=== PATIENT | female | born 1990 | race Caucasian/White ===

== ENCOUNTER 2020-02-04 09:41 | Outpatient (REF) | payer OTHER, SELFPAY ==
[2020-02-04 11:15] LABS: MANUAL DIFF FLAG NO
[2020-02-04 11:32] LABS: Basophils Absolute Auto 0.1 X10*3/uL (0.0-0.2); Basophils Percent Auto 0.8 % (0-2); Eosinophils Percent Auto 0.5 % (0-4); Hematocrit 41.2 % (37-47); Hemoglobin 12.6 g/dl (12.0-16.0); Imm Gran Abs Auto 0.03 X10*3/uL (0.00-0.03); Imm Gran Pct Auto 0.4 % (0.0-0.4); Lymphocytes Absolute Auto 3.1 X10*3/uL (1.2-4.9); Lymphocytes Percent Auto 36.6 % (20-40); Mean Corpuscular HGB Conc 30.6 g/dl (31.0-35.0); Mean Corpuscular Hemoglobin 27.8 pg (27.0-33.0); Mean Corpuscular Volume 90.7 fL (80-98); Mean Platelet Volume 9.9 fL (9.4-12.3); Monocytes Absolute Auto 0.6 X10*3/uL (0.1-1.2); Monocytes Percent Auto 6.7 % (2-11); Neutrophils Absolute Auto 4.7 X10*3/uL (2.0-8.3); Platelet Count 415 X10*3/uL (160-400); Red Blood Count 4.54 X10*6/uL (4.20-5.50); Red Cell Distribution Width 14.7 % (11.0-16.0); White Blood Count 8.5 X10*3/uL (4.8-10.8)
[2020-02-04 11:52] LABS: Alanine Aminotransferase 37 U/L (0-31); Albumin Level 4.5 g/dL (3.5-5.0); Alkaline Phosphatase 63 U/L (39-117); Anion Gap 15 (12-20); Aspartate Amino Transferase 31 U/L (5-31); Bilirubin Total 0.4 mg/dL (0.0-1.0); Blood Urea Nitrogen 13 mg/dL (9-16); Calcium 8.7 mg/dL (8.4-10.2); Carbon Dioxide 25 mmol/L (22-29); Chloride 103 mmol/L (96-108); Estimated Glomerular Filt Rate > 60; Glucose Random 89 mg/dL (60-115); Potassium 4.2 mmol/l (3.3-5.1); Sodium 139 mmol/L (135-145); Total Protein 8.1 g/dL (6.5-8.0)
[2020-02-04 12:03] LABS: TSH reflex Free T4 3.28 mIU/mL (0.32-4.0)
== END 2020-02-04 09:42 | disposition home or self-care (01) ==
LOC: HO.LAB 09:41
PROVIDERS: PCP Internal Medicine; Visit Provider Internal Medicine
DX: K52.9 Noninfective gastroenteritis and colitis, unspecified (principal); E03.9 Hypothyroidism, unspecified
CPT/HCPCS: 36415; 80053; 84443; 85025

== ENCOUNTER → 2020-03-03 15:18 | Outpatient (BNVA) | payer OTHER, SELFPAY | PROVIDERS: PCP Internal Medicine; Referring Provider Internal Medicine; Visit Provider Internal Medicine Gastroenterology | DX: Z76.89 Persons encountering health services in other specified circumstances (principal) ==

== ENCOUNTER 2020-05-28 07:34 | Outpatient (REF) | payer OTHER, SELFPAY ==
[2020-05-28 08:20] LABS: MANUAL DIFF FLAG NO
[2020-05-28 08:32] LABS: Basophils Absolute Auto 0.1 X10*3/uL (0.0-0.2); Basophils Percent Auto 0.8 % (0-2); Eosinophils Absolute Auto 0.1 X10*3/uL (0.0-0.4); Eosinophils Percent Auto 0.7 % (0-4); Hematocrit 41.1 % (37-47); Imm Gran Abs Auto 0.02 X10*3/uL (0.00-0.03); Imm Gran Pct Auto 0.3 % (0.0-0.4); Lymphocytes Absolute Auto 2.9 X10*3/uL (1.2-4.9); Lymphocytes Percent Auto 37.6 % (20-40); Mean Corpuscular HGB Conc 31.6 g/dl (31.0-35.0); Mean Corpuscular Hemoglobin 28.6 pg (27.0-33.0); Mean Corpuscular Volume 90.3 fL (80-98); Mean Platelet Volume 10.3 fL (9.4-12.3); Monocytes Absolute Auto 0.5 X10*3/uL (0.1-1.2); Monocytes Percent Auto 6.4 % (2-11); Neutrophils Absolute Auto 4.2 X10*3/uL (2.0-8.3); Neutrophils Percent Auto 54.2 % (45-73); Platelet Count 400 X10*3/uL (160-400); Red Blood Count 4.55 X10*6/uL (4.20-5.50); Red Cell Distribution Width 14.5 % (11.0-16.0); White Blood Count 7.7 X10*3/uL (4.8-10.8)
[2020-05-28 09:06] LABS: Alanine Aminotransferase 24 U/L (0-31); Albumin Level 4.3 g/dL (3.5-5.0); Alkaline Phosphatase 57 U/L (39-117); Anion Gap 14 (12-20); Aspartate Amino Transferase 26 U/L (5-31); Bilirubin Total 0.4 mg/dL (0.0-1.0); Blood Urea Nitrogen 12 mg/dL (9-16); C Reactive Protein 0.66 mg/dL (< or = 0.50); Calcium 9.2 mg/dL (8.4-10.2); Carbon Dioxide 26 mmol/L (22-29); Chloride 105 mmol/L (96-108); Estimated Glomerular Filt Rate > 60; Glucose Random 110 mg/dL (60-115); Magnesium 1.9 mg/dL (1.6-2.6); Potassium 4.6 mmol/L (3.3-5.1); Sodium 140 mmol/L (135-145); Total Protein 7.8 g/dL (6.5-8.0)
[2020-05-28 09:12] LABS: Vitamin D 25-OH Total 29.4 ng/mL (>30)
[2020-06-01 00:13] LABS: Transglutaminase IgA 1 U/mL
== END 2020-05-28 07:35 | disposition home or self-care (01) ==
LOC: HO.LAB 07:34
PROVIDERS: PCP Internal Medicine; Visit Provider Internal Medicine Gastroenterology
DX: K52.9 Noninfective gastroenteritis and colitis, unspecified (principal)
CPT/HCPCS: 36415; 80053; 82306; 83516; 83735; 85025; 86140

== ENCOUNTER 2020-07-16 15:02 | Outpatient (REF) | payer OTHER, SELFPAY | END 2020-07-16 15:03 | disposition home or self-care (01) | LOC: HO.LAB 15:02 | PROVIDERS: Visit Provider Internal Medicine | DX: Z20.822 Contact with and (suspected) exposure to COVID-19 (principal) | CPT/HCPCS: C9803; U0003; U0005 ==

== ENCOUNTER 2020-07-19 09:00 | Outpatient (REF) | payer OTHER, SELFPAY ==
[2020-07-19 09:28] LABS: COVID-19 Test Negative (Negative)
== END 2020-07-19 09:01 | disposition home or self-care (01) ==
LOC: HO.LAB 09:00
PROVIDERS: Visit Provider Internal Medicine
DX: Z20.822 Contact with and (suspected) exposure to COVID-19 (principal)
CPT/HCPCS: 36415; 87635; C9803

== ENCOUNTER 2020-08-06 12:19 | Outpatient (REF) | payer OTHER, SELFPAY ==
[2020-08-06 12:39] LABS: COVID-19 Test Negative (Negative); IDNOW Serial# 55D5AD1C
== END 2020-08-06 12:20 | disposition home or self-care (01) ==
LOC: HO.LAB 12:19
PROVIDERS: Visit Provider Internal Medicine
DX: Z20.822 Contact with and (suspected) exposure to COVID-19 (principal)
CPT/HCPCS: 36415; 87635; C9803

== ENCOUNTER 2021-01-08 13:59 | Emergency (ER) | payer OTHER, SELFPAY ==
--- NOTE | ~2021-01-08 | US_ITS ---
EXAMINATION: US OBSTETRICAL ULTRASOUND CLINICAL INFORMATION: Spotting. Prior history of ectopic .. Question ectopic .. COMPARISON: None. LMP: 11/11/2020. Gestational age by maternal dates is 8 weeks 2 days. Estimated date of delivery by maternal dates is 08/18/2021. TECHNIQUE: Transabdominal and transvaginal evaluation FINDINGS: There is a single intrauterine gestational sac. There is a pole is seen. [place] Pocket-rump length 0.74 cm, corresponding with a gestational age by ultrasound of 6 weeks 5 days, FREDDY by ultrasound 08/29/2021. No discernible heart rate visualized. No visible yolk sac. The right ovary is not visualized. Left ovary measures 4.1 x 1.7 x 2.2 cm, appearing unremarkable. No findings to suggest ectopic identified in the adnexal regions. US/US OB pelvic and transvaginal IMPRESSION: 1. Last menstrual period corresponds with a gestational age of 8 weeks 2 days. On ultrasound, there is a single intrauterine gestational sac with a pole, with crown-rump length measurements corresponds with a gestational age of 6 weeks 5 days. This is discordant when correlated with the LMP dates. No heart rate is identified, which could be related to early gestational age versus non-viability. Recommend close clinical correlation and follow-up,, serial beta hCGs, short-term follow-up ultrasound is recommended. 2. No adnexal findings are evident by ultrasound to suggest ectopic .
[2021-01-08 15:32] VITALS: PULSE 87; RESP 16; TEMP 36.6; O2SAT 100; BMI 42.7
--- NOTE | 2021-01-08 17:18 | ED_ITS ---
HPI - General Chief complaint: Vaginal Bleeding Stated complaint: , vaginal bleeding Time Seen by Provider: 01/08/21 16:14 Source: patient Mode of arrival: ambulatory Limitations: language barrier History of Present Illness HPI Narrative: 30-year-old english-speaking female with a history of ectopic 3 years ago presents for positive test at home and brown discharge. Two days ago patient had a positive home test. For the last 2 days she has had spotting, brown spots on the toilet paper when she goes to the bathroom. Patient has no pelvic pain. LMP was 11/11/20. She is . She has an appointment with her [facility] on January 27. She is not taking prenatals. She has no STD concerns. MD Complaint: vaginal bleeding Onset (ago): day(s) (1) Associated symptoms: denies other symptoms Vaginal bleeding: other (brown spotting) Date of Last Menstrual Period: 12/12/20 Related Data : 3 Para: 2 Total number of abortions (spontaneous and elective): 1 Previous Rx's Medication Instructions Recorded vitamin no.138-folic acid 1 tab PO DAILY 30 Days #30 tab 01/08/21 400 mcg-dha 25 mg chewable tablet (Alive ) Allergies Allergy/AdvReac Type Severity Reaction Status Date / Time No Known Allergies Allergy Verified 06/21/20 10:43 [No Known Allergies*] Review of Systems Constitutional: Constitutional: Denies body ache(s), Denies chills, Denies fatigue, Denies fever(s), Denies headache(s), Denies malaise and Denies weakness Eyes: Eyes: Denies change in vision and Denies diplopia ENT: Denies vertigo, Denies dizziness, Denies otalgia, Denies headache(s), Denies post nasal drip, Denies sinus pain and Denies sore throat Cardiovascular: Cardiovascular: Denies chest pain, Denies syncope, Denies lightheadedness, Denies palpitations and Denies dyspnea Respiratory: Respiratory: Denies chest congestion, Denies cough and Denies dyspnea Gastrointestinal: Gastrointestinal: Denies abdominal pain, Denies hematochezia, Denies constipation, Denies diarrhea and Denies vomiting Genitourinary: Genitourinary: Reports abnormal vaginal bleeding, Denies dysuria, Denies pelvic pain, Denies flank pain and Denies urinary urgency Musculoskeletal: Musculoskeletal: Reports no additional musculoskeletal complaints Neurologic: Denies confusion, Denies vertigo, Denies dizziness, Denies syncope, Denies headache(s) and Denies weakness Psychiatric: Psychiatric: Denies anxiety, Denies confusion and Denies depression Endocrine: Endocrine: Denies fatigue and Denies palpitations [facility] Past Medical History Medical History Chronic diarrhea Morbid obesity with BMI of 40.0-44.9, adult Surgical History History of : 3 Para: 2 Total number of abortions (spontaneous and elective): 1 Date of Last Menstrual Period: 12/12/20 Family History Family History Father No problems noted. 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 Physical Exam Vital Signs: Vital Signs: Last Vital Signs Temp 99.3 F 01/08/21 19:53 Pulse 80 01/08/21 19:53 Resp 16 01/08/21 19:53 BP 112/71 01/08/21 19:53 Pulse Ox 100 01/08/21 19:53 Body Mass Index 42.7 Const: General: no acute distress, well developed, awake and Physically active; No confusion Nutritional Appearance: obese centrally obese Orien tation/consciousness: patient oriented x3 and No confusion Limitations: language barrier HENMT: Head: Yes normal to inspection, Yes normocephalic and Yes atraumatic Ears: hearing grossly normal bilaterally and external ears normal General nose exam: Normal external nose present Face and sinus: Yes normal facial exam Eyes: Conjunctivae: conjunctivae normal Pupils: Equal, round and reactive pupils present EOM: EOMs intact bilaterally Neck: Neck: Yes full ROM, Yes no lymphadenopathy and Yes supple Resp: Effort & Inspection: normal respiratory effort and able to speak in complete sentences Auscultation: clear to auscultation bilaterally, no crackles, no rales, no rhonchi and no wheezes Cardio: Rate: regular rate Rhythm: regular rhythm Heart sounds: S1 normal heart sound present and S2 normal heart sound present GI: Inspection: Yes normal to inspection Palpation (GI): Soft to palpation, nontender, no guarding and not rigid Percussion: Yes normal to percussion Auscultation: normal bowel sounds : External Female Exam: normal external appearance, No externally tender and No external swelling Speculum Exam - Vagina: normal appearance of the vagina, abnormal vaginal discharge (brown) and vaginal bleeding (brown, scant) Speculum Exam - Cervix: normal appearance of the cervix and Cervical os closed OB/external & speculum: vaginal bleeding (brown, scant) Skin: General skin exam: no rashes or lesions noted Neuro: General: patient oriented x3 and No confusion Cranial nerves: Yes Equal, round and reactive pupils present Extrem: General: Yes normal to inspection and Yes full ROM Psych: Appearance: grossly normal Affect: normal affect Attitude: cooperative Thought process: Normal thought process present Course Course Course Narrative: 30-year-old female whose last menstrual period was November 11, 2020, is [place]. [place] [address]. On exam, patient has a closed cervix with scant brown discharge. Will get ultrasound to rule out ectopic. Patient told me she has appointment with her OBGYN at the end of the month. Reevaluation(s) Reevaluation #1: 1. Last menstrual period corresponds with a gestational age of 8 weeks 2 days. ? On ultrasound, there is a single intrauterine gestational sac with a pole, with crown-rump length measurements corresponds with a gestational age of 6 weeks 5 days. This is discordant when correlated with the LMP dates. No heart rate is identified, which could be related to early gestational age versus non-viability. Recommend close clinical correlation and follow-up,, serial beta hCGs, short-term follow-up ultrasound is recommended. ? 2. No adnexal findings are evident by ultrasound to suggest ectopic . Told patient to take vitamins which I will prescribe for her. Told patient she needs close follow-up and she needs to call her OBGYN on Sunday. They will need to do serial hormone and follow-up with ultrasound Patient verbalized agreement and understanding of the plan. MDM - OB/Uterine Contractions Lab Data Labs: Lab Results 10/12/2101/08/21 01/08/21 Range/Units 17:40 17:40 17:47 Beta HCG, Quant 98780 mIU/mL Urine Color YELLOW Urine Appearance CLEAR Urine pH 6.5 (5.0-8.0) Ur Specific [place] 1.015 (1.005-1.025) Urine Protein NEG (NEG-TRACE) MG/DL Urine Glucose (UA) NEG (NEG) MG/DL Urine Ketones NEG (NEG) MG/DL Urine Blood 1+ H (NEG) Urine Nitrite NEG (NEG) Ur Leukocyte Esterase NEG (NEG) Urine RBC 0-2 (0) /HPF Urine WBC 0-2 (0-4) /HPF Ur Squamous Epith Cells 1+ /LPF Urine Bacteria 2+ /LPF Urine Test POSITIVE H (NEGATIVE) Discharge Plan Discharge Clinical Impression: Vaginal spotting Qualifiers: Weeks of gestation: less than 8 weeks Qualified Code(s): Z3A.01 - Less than 8 weeks gestation of Patient Disposition: Home, Self-Care Instructions: First Trimester (ED) Additional Instructions: Please call your OBGYN on Sunday morning. I would like you to be seen this week. You may need to have follow-up blood work and ultrasound. To not wait until your January 27 appointment, he must be seen this week. If you have pelvic pain, worsening bleeding, fevers, or any other new or concerning symptoms, please return to emergency room. Llame a wade obstetra el lunes por la ma?bre. Me gustar?a que te vieran esta semana. Es posible que deba realizarse an?lisis de jelani y ultrasonido de seguimiento. Para no esperar hasta wade scott del , debe verlo esta semana. Si tiene dolor p?lvico, sangrado que empeora, fiebre o cualquier otro s?ntoma nuevo o preocupante, regrese a la ciarra de emergencias. Prescriptions: New Alive 400 mcg- 25 mg tablet,chewable 1 tab PO DAILY 30 Days Qty: 30 RF: 0
[2021-01-08 17:57] LABS: Appearance Urine CLEAR; Color Urine YELLOW; Glucose Urine UA NEG (NEG); Leukocyte Esterase Urine NEG (NEG); Nitrite Urine NEG (NEG); PH 6.5 (5.0-8.0); Specific Gravity - Urine 1.015 (1.005-1.025); Urine Blood 1+ (NEG); Urine Ketones NEG (NEG); Urine Protein NEG (NEG-TRACE)
[2021-01-08 17:58] LABS: UPreg QC Valid YES; Urine Pregnancy POSITIVE (NEGATIVE)
[2021-01-08 18:03] LABS: Bacteria Urine 2+ /LPF; Squamous Epithelial Cell Urine 1+ /LPF
[2021-01-08 18:04] LABS: RBC Urine 0-2 /HPF (0); WBC Urine 0-2 /HPF (0-4)
[2021-01-08 19:53] VITALS: BP 112/71; PULSE 80; RESP 16; TEMP 37.4; O2SAT 100
== END 2021-01-08 22:11 | disposition home or self-care (01) ==
PROVIDERS: Physician Assistant; Emergency Provider Emergency Medicine; PCP Internal Medicine
DX: O20.9 Hemorrhage in early pregnancy, unspecified (principal); Z3A.01 Less than 8 weeks gestation of pregnancy
CPT/HCPCS: 36415; 76801; 76817; 81001; 81025; 84702; 99284

== ENCOUNTER 2021-01-13 14:59 | Outpatient (REF) | payer OTHER, SELFPAY ==
[2021-01-14 10:38] LABS: CT PCR NOT DETECTED (Not Detect.); NG PCR NOT DETECTED (Not Detect.)
== END 2021-01-13 15:00 | disposition home or self-care (01) ==
LOC: HO.LAB 14:59
PROVIDERS: PCP Internal Medicine; Visit Provider Obstetrics & Gynecology
DX: O20.0 Threatened abortion (principal)
CPT/HCPCS: 36415; 84702; 86850; 86900; 86901; 87491; 87591; 99202

== ENCOUNTER 2021-01-14 08:50 | Outpatient (REF) | payer OTHER, SELFPAY ==
--- NOTE | ~2021-01-14 | US_ITS ---
EXAMINATION: OBSTETRICAL ULTRASOUND, FIRST TRIMESTER HISTORY: 30-year-old with unknown LMP Threatened AB LMP: Unknown COMPARISON: 01/08/2021 TECHNIQUE: Real time transabdominal imaging with color and M-mode Doppler. Transvaginal ultrasound was performed using an endovaginal probe. FINDINGS: A single, live IUP CRL of 4.7 mm c/w 6.2wks is noted. No heart motion. Yolk sac is absent. Both maternal ovaries are seen and appear normal. No free fluid in the cul-de-sac. GESTATIONAL AGE: 1. GA from LMP: 7.4 wks 2. GA from AUA: 6.2 wks ESTIMATED DATE OF DELIVERY: 1. FREDDY from LMP: 08/29/2021 2. FREDDY from AUA: 09/03/2021 US/US OB <= 14 weeks fetus IMPRESSION: 1. A nonviable IUP 2. CRL consistent with 6.2 weeks with no heart motion or yolk sac. 3. The finding is consistent with missed AB Discussion: I informed the patient of the ultrasound findings and informed her that the most common etiology for first trimester miscarriages is chromosomal. She had 2 healthy term deliveries. I reassured her that her chance of conceiving and having a normal is unchanged based on this one miscarriage. She is to follow up with you for further care. No specific ultrasound followup appears needed at this time. The patient was advised that ultrasound cannot guarantee the of a normal infant. Thank you very much for this referral. Total time 20 minutes. The time spent was devoted to counseling the patient about the disease and diagnosis, coordinating care including reviewing her records, pertinent lab data and studies, as well as discussing diagnostic evaluation and workup, plan therapeutic interventions and future disposition of care. This includes any additional research needed to obtain further information in formulating the plan of care of this patient. This note was generated with a voice recognition program. Please excuse any errors which may have been overlooked during my review of this note. Sometimes these errors may affect the content or meaning of a given sentence.
== END 2021-01-14 08:51 | disposition home or self-care (01) ==
LOC: HO.US 08:50
PROVIDERS: PCP Internal Medicine; Visit Provider Obstetrics & Gynecology
DX: O02.1 Missed abortion (principal)
CPT/HCPCS: 76801; 99212

== ENCOUNTER 2021-01-26 08:43 | Outpatient (REF) | payer OTHER, SELFPAY ==
[2021-01-26 10:24] LABS: HCG Quantitative 303 mIU/mL
== END 2021-01-26 08:44 | disposition home or self-care (01) ==
LOC: HO.LAB 08:43
PROVIDERS: PCP Internal Medicine; Visit Provider Obstetrics & Gynecology
DX: O02.1 Missed abortion (principal)
CPT/HCPCS: 36415; 84702

== ENCOUNTER → 2021-01-27 12:41 | Outpatient (BNVA) | payer OTHER, SELFPAY | PROVIDERS: PCP Internal Medicine; Visit Provider Obstetrics & Gynecology | DX: O03.9 Complete or unspecified spontaneous abortion without complication (principal) | CPT/HCPCS: 99212 ==

== ENCOUNTER 2021-02-16 09:51 | Outpatient (REF) | payer OTHER, SELFPAY ==
[2021-02-16 11:15] LABS: HCG Quantitative 4 mIU/mL
[2021-02-18 19:17] LABS: TS Negative Control Passed; TS Panel A 0; TS Panel B 0; TS Positive Control Passed; TSpotTB Negative (Negative)
== END 2021-02-16 09:52 | disposition home or self-care (01) ==
LOC: HO.LAB 09:51
PROVIDERS: PCP Internal Medicine; Referring Provider Obstetrics & Gynecology; Visit Provider Internal Medicine
DX: N92.6 Irregular menstruation, unspecified (principal); Z11.1 Encounter for screening for respiratory tuberculosis
CPT/HCPCS: 36415; 84702; 86481

== ENCOUNTER → 2021-02-17 12:43 | Outpatient (BNVA) | payer OTHER, SELFPAY | PROVIDERS: PCP Internal Medicine; Visit Provider Obstetrics & Gynecology | DX: O03.9 Complete or unspecified spontaneous abortion without complication (principal) | CPT/HCPCS: 99212 ==

== ENCOUNTER 2021-03-03 08:52 | Outpatient (REF) | payer OTHER, SELFPAY ==
[2021-03-03 10:10] LABS: HCG Quantitative < 2 mIU/mL
== END 2021-03-03 08:53 | disposition home or self-care (01) ==
LOC: HO.LAB 08:52
PROVIDERS: PCP Internal Medicine; Visit Provider Obstetrics & Gynecology
DX: O03.9 Complete or unspecified spontaneous abortion without complication (principal)
CPT/HCPCS: 36415; 84702

== ENCOUNTER 2021-03-21 10:28 | Outpatient (REF) | payer OTHER, SELFPAY ==
[2021-03-21 12:03] LABS: COVID-19 Test Negative (Negative); IDNOW Serial# 16C4AD1C
== END 2021-03-21 10:29 | disposition home or self-care (01) ==
LOC: HO.LAB 10:28
PROVIDERS: PCP Internal Medicine; Visit Provider Internal Medicine
DX: Z20.822 Contact with and (suspected) exposure to COVID-19 (principal)
CPT/HCPCS: 36415; 87635; C9803

== ENCOUNTER 2021-04-19 09:53 | Outpatient (REF) | payer OTHER, SELFPAY ==
[2021-04-19 10:38] LABS: Binax Internal Control QC Valid; Binax Now Covid-19 Ag Positive (Negative)
== END 2021-04-19 09:54 | disposition home or self-care (01) ==
LOC: HO.LAB 09:53
PROVIDERS: Visit Provider Internal Medicine
DX: Z20.822 Contact with and (suspected) exposure to COVID-19 (principal)
CPT/HCPCS: C9803

== ENCOUNTER 2021-04-25 09:57 | Outpatient (REF) | payer OTHER, SELFPAY ==
[2021-04-25 10:35] LABS: Binax Internal Control QC Valid; Binax Now Covid-19 Ag Negative (Negative)
== END 2021-04-25 09:58 | disposition home or self-care (01) ==
LOC: HO.LAB 09:57
PROVIDERS: Visit Provider Internal Medicine
DX: Z20.822 Contact with and (suspected) exposure to COVID-19 (principal)
CPT/HCPCS: C9803

== ENCOUNTER 2021-06-24 07:05 | Outpatient (REF) | payer OTHER, SELFPAY ==
[2021-06-24 07:34] LABS: MANUAL DIFF FLAG NO
[2021-06-24 08:07] LABS: Basophils Absolute Auto 0.1 X10*3/uL (0.0-0.2); Basophils Percent Auto 0.7 % (0-2); Eosinophils Absolute Auto 0.1 X10*3/uL (0.0-0.4); Eosinophils Percent Auto 0.6 % (0-4); Hematocrit 39.2 % (37.0-47.0); Hemoglobin 12.4 g/dl (12.0-16.0); Imm Gran Abs Auto 0.14 X10*3/uL (0.00-0.03); Imm Gran Pct Auto 1.2 % (0.0-0.4); Lymphocytes Percent Auto 25.6 % (20-40); Mean Corpuscular HGB Conc 31.6 g/dl (31.0-35.0); Mean Corpuscular Hemoglobin 29.2 pg (27.0-33.0); Mean Corpuscular Volume 92.2 fL (80.0-98.0); Mean Platelet Volume 9.7 fL (9.4-12.3); Monocytes Absolute Auto 0.8 X10*3/uL (0.1-1.2); Monocytes Percent Auto 6.7 % (2-11); Neutrophils Absolute Auto 7.5 x10*3/uL (2.0-8.3); Neutrophils Percent Auto 65.2 % (45-73); Platelet Count 407 X10*3/uL (160-400); Red Blood Count 4.25 X10*6/uL (4.20-5.50); Red Cell Distribution Width 14.6 % (11.0-16.0); White Blood Count 11.5 X10*3/uL (4.8-10.8)
[2021-06-24 08:33] LABS: Alanine Aminotransferase 30 U/L (0-31); Albumin Level 3.9 g/dL (3.5-5.0); Alkaline Phosphatase 60 U/L (39-117); Anion Gap 13 (12-20); Aspartate Amino Transferase 35 U/L (5-31); Bilirubin Total 0.5 mg/dL (0.0-1.0); Blood Urea Nitrogen 12 mg/dL (9-16); Calcium 9.3 mg/dL (8.4-10.2); Carbon Dioxide 27 mmol/L (22-29); Chloride 101 mmol/L (96-108); Cholesterol 186 mg/dL; Estimated Glomerular Filt Rate > 60; Glucose Fasting 117 mg/dL (60-99); HDL Cholesterol 53 mg/dL; LDL Cholesterol Calculated 101 mg/dl; Potassium 4.6 mmol/L (3.3-5.1); Sodium 136 mmol/L (135-145); Total Protein 7.6 g/dL (6.5-8.0); Triglycerides 163 mg/dL
[2021-06-24 08:54] LABS: HCG Quantitative 7268 mIU/mL; Thyroid Stimulating Hormone 7.35 uIU/mL (0.32-4.0)
== END 2021-06-24 07:06 | disposition home or self-care (01) ==
LOC: HO.LAB 07:05
PROVIDERS: PCP Internal Medicine; Visit Provider Internal Medicine
DX: Z00.00 Encounter for general adult medical examination without abnormal findings (principal); D64.9 Anemia, unspecified; E66.01 Morbid (severe) obesity due to excess calories; Z68.41 Body mass index [BMI] 40.0-44.9, adult; N92.6 Irregular menstruation, unspecified; E78.5 Hyperlipidemia, unspecified
CPT/HCPCS: 36415; 80053; 80061; 84443; 84702; 85025

== ENCOUNTER → 2021-06-29 14:44 | Outpatient (BNVA) | payer OTHER, SELFPAY | PROVIDERS: PCP Internal Medicine; Visit Provider Advanced Practice Midwife | DX: N92.6 Irregular menstruation, unspecified (principal); E66.01 Morbid (severe) obesity due to excess calories; Z68.41 Body mass index [BMI] 40.0-44.9, adult | CPT/HCPCS: 81025; 99212 ==

== ENCOUNTER 2021-07-08 13:10 | Outpatient (REF) | payer OTHER, SELFPAY ==
--- NOTE | ~2021-07-08 | US_ITS ---
EXAMINATION: OBSTETRICAL ULTRASOUND, FIRST TRIMESTER HISTORY: 31-year-old with irregular menses LMP: 05/06/2021, uncertain COMPARISON: None TECHNIQUE: Real time transabdominal imaging with color and M-mode Doppler. FINDINGS: A single, live IUP CRL of 13.5 mm c/w 7.5wks is noted. Heart Rate: 169 beats per minute. Too early for NT evaluation. Both maternal ovaries are seen and appear normal. GESTATIONAL AGE: 1. GA from LMP: 9.0 wks 2. GA from AUA: 7.5 wks ESTIMATED DATE OF DELIVERY: 1. FREDDY from LMP: 02/10/2022 2. FREDDY from AUA: 02/19/2022 US/US OB <= 14 weeks fetus IMPRESSION: 1. A single live IUP 2. Size less than dates, CRL corresponds to 7.5 weeks. 3. Adjust her FREDDY to 02/19/2022 based on today's examination. A follow-up in approximately 12 weeks for NT evaluation is suggested (not scheduled). Thank you very much for this referral. This note was generated with a voice recognition program. Please excuse any errors which may have been overlooked during my review of this note. Sometimes these errors may affect the content or meaning of a given sentence.
== END 2021-07-08 13:11 | disposition home or self-care (01) ==
LOC: HO.US 13:10
PROVIDERS: Visit Provider Advanced Practice Midwife
DX: Z34.91 Encounter for supervision of normal pregnancy, unspecified, first trimester (principal); Z3A.01 Less than 8 weeks gestation of pregnancy
CPT/HCPCS: 76801

== ENCOUNTER → 2021-07-14 09:43 | Outpatient (BNVA) | payer OTHER, SELFPAY | PROVIDERS: Visit Provider Advanced Practice Midwife | DX: Z13.89 Encounter for screening for other disorder (principal) | CPT/HCPCS: 99212 ==

== ENCOUNTER 2021-07-22 06:40 | Outpatient (REF) | payer OTHER, SELFPAY ==
[2021-07-22 07:09] LABS: Hematocrit 40.8 % (37.0-47.0); Mean Corpuscular HGB Conc 31.9 g/dl (31.0-35.0); Mean Corpuscular Volume 90.9 fL (80.0-98.0); Mean Platelet Volume 10.1 fL (9.4-12.3); Platelet Count 278 X10*3/uL (160-400); Red Blood Count 4.49 X10*6/uL (4.20-5.50); Red Cell Distribution Width 15.6 % (11.0-16.0); White Blood Count 11.6 X10*3/uL (4.8-10.8)
[2021-07-22 07:48] LABS: Glucose 1 Hour PP 50gm Dose 114 mg/dL (60-140)
[2021-07-22 08:33] LABS: Syphilis Screen Nonreactive (Nonreactive)
[2021-07-22 09:35] LABS: Amphetamine Screen Urine Not Detected (Not Detect); Barbiturates, Urine Not Detected (Not Detect); Benzodiazepines Screen Urine Not Detected (Not Detect); Cannabinoid Screen Urine Not Detected (Not Detect); Cocaine Screen Urine Not Detected (Not Detect); Fentanyl, urine Not Detected (Not Detect); Opiate Screen Urine Not Detected (Not Detect); Phencyclidine Screen Urine Not Detected (Not Detect)
[2021-07-22 09:38] LABS: ~HepC Num1 0.44 S/CO (0.00-0.79); ~Hepatitis C Antibody Nonreactive (Nonreactive)
[2021-07-22 11:43] LABS: HBsAGNum1 0.24 S/CO (0.00-0.99); HIV AB/AG Nonreactive (Nonreactive); HIV Num 1 0.07 S/CO (0.00-0.99); Hepatitis B Surface Antigen Negative (Negative)
[2021-07-26 01:11] LABS: Rubella IgG Antibody 4.25 Index
== END 2021-07-22 06:41 | disposition home or self-care (01) ==
LOC: HO.LAB 06:40
PROVIDERS: PCP Internal Medicine; Visit Provider Advanced Practice Midwife
DX: O99.210 Obesity complicating pregnancy, unspecified trimester (principal); E66.01 Morbid (severe) obesity due to excess calories; Z68.41 Body mass index [BMI] 40.0-44.9, adult; Z3A.00 Weeks of gestation of pregnancy not specified
CPT/HCPCS: 80307; 85027; 86762; 86780; 86787; 86803; 86850; 86900; 86901; 87086; 87340; 87389

== ENCOUNTER 2021-08-12 09:00 | Outpatient (REF) | payer OTHER, SELFPAY ==
--- NOTE | ~2021-08-12 | US_ITS ---
EXAMINATION: OBSTETRICAL ULTRASOUND, FIRST TRIMESTER HISTORY: 31-year-old at the 12.5 weeks of gestation NT screening BMI 42.4 COMPARISON: 07/08/2021 TECHNIQUE: Real time transabdominal imaging with color and M-mode Doppler. FINDINGS: A single, live IUP CRL of 70.0 mm c/w 13.2wks is noted. Heart Rate: 163 beats per minute. Normal yolk sac seen. NT was 1.54.mm. NB Present The embryo appears sonographically wnl for this GA. Both maternal ovaries are seen and appear normal. GESTATIONAL AGE: 1. Established GA: 12.5 wks 2. GA from AUA: 13.2 wks ESTIMATED DATE OF DELIVERY: 1. Established FREDDY: 02/19/2022 2. FREDDY from [facility]: 02/15/2022 US/US OB 1T nuc measure IMPRESSION: 1. A single live IUP 2. Size equals dates 3. NT of 1.5 mm MFM Consultation: I reviewed the ultrasound findings along with significance of NT measurement. The NT of less than 3mm is generally reassuring. However, the sensitivity for T21 detection is only 60%. I reviewed the availability of serum aneuploidy screening which includes cell-free DNA and placental protein based tests. I discussed the sensitivity, false-positive rate, and other limitations associated with each test. I also reviewed the availability of invasive diagnostic tests that are associated small but definite risk of miscarriage. We also reviewed the differences between screening tests and diagnostic tests. After our discussion, she opted for the First trimester screening that is based on cell-free DNA or non-invasive testing (NIPT). The result will be faxed to your office in approximately 7 days. A follow up at 18 weeks for survey has been scheduled. Thank you very much for this referral. Total time 30 minutes. The time spent was devoted to counseling the patient about the disease and diagnosis, coordinating care including reviewing her records, pertinent lab data and studies, as well as discussing diagnostic evaluation and workup, plan therapeutic interventions and future disposition of care. This includes any additional research needed to obtain further information in formulating the plan of care of this patient. This note was generated with a voice recognition program. Please excuse any errors which may have been overlooked during my review of this note. Sometimes these errors may affect the content or meaning of a given sentence.
== END 2021-08-12 09:01 | disposition home or self-care (01) ==
LOC: HO.US 09:00
PROVIDERS: Visit Provider Advanced Practice Midwife
DX: O99.211 Obesity complicating pregnancy, first trimester (principal); O26.891 Other specified pregnancy related conditions, first trimester; E66.01 Morbid (severe) obesity due to excess calories; K52.9 Noninfective gastroenteritis and colitis, unspecified; Z68.41 Body mass index [BMI] 40.0-44.9, adult; Z3A.12 12 weeks gestation of pregnancy
CPT/HCPCS: 76813

== ENCOUNTER 2021-08-19 10:40 | Outpatient (REF) | payer OTHER, SELFPAY ==
[2021-08-19 18:13] LABS: CT PCR NOT DETECTED (Not Detect.); NG PCR NOT DETECTED (Not Detect.)
[2021-08-20 13:53] LABS: BV Int Neg Control Negative (Negative); BV Int Pos Control Positive (Positive)
[2021-08-24 14:11] LABS: HPV mRNA E6/E7 rflx Not Detected (Not Detected)
== END 2021-08-19 10:41 | disposition home or self-care (01) ==
LOC: HO.LAB 10:40
PROVIDERS: PCP Internal Medicine; Visit Provider Advanced Practice Midwife
DX: O99.211 Obesity complicating pregnancy, first trimester (principal); E66.01 Morbid (severe) obesity due to excess calories; Z71.3 Dietary counseling and surveillance; Z3A.13 13 weeks gestation of pregnancy; Z98.891 History of uterine scar from previous surgery
CPT/HCPCS: 87480; 87491; 87510; 87591; 87624; 87660; 88142; 99212

== ENCOUNTER 2022-11-16 11:00 | Outpatient (AMB) | payer OTHER, SELFPAY ==
--- NOTE | 2022-11-16 11:07 | A.OFFPC_ITS ---
Vital Signs 11/16/22 11:08 Height 5 ft 6 in Weight 256 lb 4 oz BMI 41.4 BP 120/82 Blood Pressure Location Lt brachial Position Sitting Pulse 75 Pulse Source Pulse Oximeter Pulse Oximetry (%) 99 Oxygen Delivery Method Room Air Intake Visit Reasons: 4 month f/u Intake Note: Pt is here for left arm and back pain. Ibuprofen 600mg is not helping with the pain. Sheep Boner Required: No Accompanied by: Daughter Allergies No Known Allergies [No Known Allergies*] Allergy (Verified 11/16/22 11:20) Medication List - Last Reconciled 11/16/22 by Bre Hinds MD No Known Home Meds Tobacco use date assessed: 08/22/22 Dental Screening Dental Screen Date: 11/16/22 Did you have a dental visit in the last 12 months?: Yes Did you have a dental problem in the last 6 months where you did not have access to dental care?: No Was dental information given to patient?: Patient has dentist HPI HPI Comments History of Present Illness Details This is a 32-year-old female with prediabetes, elevated TSH and morbid obesity that comes today complaining of lumbar pain with no radiation to legs that started few months ago. I will order x-ray and refer her to physical therapy. She denies any polyuria, polydipsia or unintentional weight loss. Blood glucose will be monitor. TSH will be repeated. She is morbidly obese with a BMI of 41.4 and would like to be referred to weight management. [facility] Medical History (Updated 11/16/22 @ 11:24 by Bre Hinds MD) Allergic rhinitis Chronic diarrhea DUB (dysfunctional uterine bleeding) Encounter for routine screening for malformation using ultrasound Morbid obesity with BMI of 40.0-44.9, adult Physical exam Rosacea Surgical History History of Family History Mother Epilepsy Maternal Grandfather Cardiac arrest Social History Household Members: Children Both parents involved: Yes Caregiver staying overnight: No Housing: Apartment Are you a primary palliative care nurse to a significant other at home: No Do you presently have visiting nurse or other home services: No 75 years or older and lives alone: No Alcohol intake: never Patient Tobacco Use Status: Never used Tobacco e-Cigarette/Vaping Use: Never Used Second Hand Smoke Exposure: No Agree to transfusion: Yes service: No Current occupational status: employed 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 Scotty Og, Katya Marley, Kody Ferrara and colleagues, with an educational yaniv from [employer]. Review of Systems Const All systems reviewed & are unremarkable except as noted in HPI and below Eyes Reports no additional complaints, Denies change in vision and Denies other visual disturbances Card Denies chest pain at rest, Denies chest pain with activity, Denies edema, Denies irregular heart rhythm, Denies claudication, Denies dyspnea, Denies dyspnea on exertion, Denies orthopnea, Denies paroxysmal nocturnal dyspnea and Denies slow heart rate Resp Denies cough, Denies dyspnea and Denies dyspnea on exertion GI Denies abdominal pain, Denies change in bowel habits, Denies excessive flatus, Denies nausea and Denies vomiting Denies urinary incontinence, Denies urinary hesitancy and Denies urinary urgency Musc Denies abnormal gait, Denies atrophy, Denies deformity and Denies limited range of motion Skin/Breast Denies bleeding lesions, Denies changing lesions and Denies rash Neuro Denies abnormal gait and Denies lack of coordination Physical exam (Primary Care) Vital Signs: Last Vital Signs Pulse 75 11/16/22 11:08 BP 120/82 11/16/22 11:08 Pulse Ox 99 11/16/22 11:08 Oxygen Delivery Method Room Air 11/16/22 11:08 BMI result Body Mass Index 41.4 Tobacco/Smoking Status: Tobacco use Status Tobacco use date assessed 08/22/22 11/16/22 11:07 Patient Tobacco Use Status Never used Tobacco 11/16/22 11:07 e-Cigarette/Vaping Use Never Used 11/16/22 11:07 Thrive Assessment: Date of Thrive Assessment Date Thrive assessed 07/13/22 11/16/22 11:07 Eyes General: appearance normal, both eyes and all related structures Eyelids: Yes eyelids normal Conjunctivae: conjunctivae normal Neck Neck: Yes normal visual inspection and Yes supple Resp Effort & Inspection: normal respiratory effort Auscultation: clear to auscultation bilaterally Cardio Jugular venous distension: no JVD Rate: regular rate Rhythm: regular rhythm Heart sounds: S1 normal heart sound present and S2 normal heart sound present Extrem General: Yes full ROM Assessment and Plan Assessment & Plan (1) Lumbar pain: Code(s): M54.50 - Low back pain, unspecified Plan: XR ordered. Start PT. Continue ibuprofen. (2) Elevated TSH: Code(s): R79.89 - Other specified abnormal findings of blood chemistry Plan: Repeat TSH. (3) Pre-diabetes: Code(s): R73.03 - Prediabetes Plan: Repeat FB (4) Morbid obesity with BMI of 40.0-44.9, adult: Code(s): E66.01 - Morbid (severe) obesity due to excess calories; Z68.41 - Body mass index [BMI] 40.0-44.9, adult Plan: Start diet and exercise. BMI goal is less than 30. Refer to weight management. Orders: Orders Free T4 (Free Thyroxine) Today R79.89 - Other specified abnormal findings of blood chemistry Thyroid Stimulating Hormone Today R79.89 - Other specified abnormal findings of blood chemistry PT Evaluation and Treatment Today M54.50 - Low back pain, unspecified XR lumbar spine 2-3V Today M54.50 - Low back pain, unspecified Comprehensive [place]. Panel Fast Today E66.01 - Morbid (severe) obesity due to excess calories, Z68.41 - Body mass index [BMI] 40.0-44.9, adult Lipid Panel Today E66.01 - Morbid (severe) obesity due to excess calories, E78.5 - Hyperlipidemia, unspecified, Z68.41 - Body mass index [BMI] 40.0-44.9, adult Referrals Medical Weight Management Referral E66.01 - Morbid (severe) obesity due to excess calories, Z68.41 - Body mass index [BMI] 40.0-44.9, adult Coding Level of Care Code Est Pt Level 4 (68328) Diagnoses Lumbar pain M54.50 Elevated TSH R79.89 Pre-diabetes R73.03 Morbid obesity with BMI of 40.0-44.9, adult E66.01; Z68.41 Time Spent (min) 23
[2022-11-16 11:08] VITALS: BP 120/82; PULSE 75; O2SAT 99; BMI 41.4
== END 2022-11-16 11:33 | disposition home or self-care (01) ==
PROVIDERS: Visit Provider Internal Medicine
DX: M54.50 Low back pain, unspecified (principal); R79.89 Other specified abnormal findings of blood chemistry; E66.01 Morbid (severe) obesity due to excess calories; Z68.41 Body mass index [BMI] 40.0-44.9, adult; R73.03 Prediabetes
CPT/HCPCS: 99214

== ENCOUNTER 2022-12-02 07:20 | Outpatient (REF) | payer OTHER, SELFPAY ==
[2022-12-02 08:34] LABS: Alanine Aminotransferase 60 U/L (0-31); Albumin Level 4.1 g/dL (3.5-5.0); Alkaline Phosphatase 64 U/L (39-117); Anion Gap 14 (12-20); Aspartate Amino Transferase 58 U/L (5-31); Bilirubin Total 0.3 mg/dL (0.0-1.0); Blood Urea Nitrogen 10 mg/dL (9-16); Calcium 9.5 mg/dL (8.4-10.2); Carbon Dioxide 23 mmol/L (22-29); Chloride 105 mmol/L (96-108); Cholesterol 177 mg/dL (<200); Estimated Glomerular Filt Rate > 60; Glucose Fasting 119 mg/dL (60-99); HDL Cholesterol 41 mg/dL (>40); LDL Cholesterol Calculated 113 mg/dL (<100); Potassium 4.3 mmol/L (3.3-5.1); Sodium 138 mmol/L (135-145); Total Protein 7.9 g/dL (6.5-8.0); Triglycerides 116 mg/dL (<150)
[2022-12-02 10:27] LABS: Free T4 (Free Thyroxine) 0.82 ng/dL (0.71-1.85); Thyroid Stimulating Hormone 3.47 uIU/mL (0.32-4.0)
== END 2022-12-02 07:21 | disposition home or self-care (01) ==
LOC: HO.LAB 07:20
PROVIDERS: PCP Internal Medicine; Visit Provider Internal Medicine
DX: E66.01 Morbid (severe) obesity due to excess calories (principal); Z68.41 Body mass index [BMI] 40.0-44.9, adult; R79.89 Other specified abnormal findings of blood chemistry; E78.5 Hyperlipidemia, unspecified
CPT/HCPCS: 36415; 80053; 80061; 84439; 84443

== ENCOUNTER 2022-12-27 10:59 | Emergency (ER) | payer OTHER, SELFPAY ==
--- NOTE | 2022-12-27 11:13 | ED.GENADULT ---
HPI - General Adult General Chief complaint: General Medical Stated complaint: Flu Like Symptoms Time Seen by Provider: 12/27/22 11:23 Source: patient and outbound telemarketer Mode of arrival: ambulatory Limitations: language barrier History of Present Illness HPI narrative: Patient is a 32 year old assigned female at with no reported medical history presenting to the emergency department today with a cough. Patient states that her 10 month old daughter was diagnosed with COVID-19 yesterday and the patient has a cough. Patient denies any dizziness, lightheadedness, abdominal pain, nausea, vomiting, fever, chills, blurry vision, double vision, loss of vision, chest pain, difficulty breathing, shortness of breath, back pain, night sweats, pain with urination, increased urinary frequency, increased urinary urgency, blood in her urine or stool, syncope or a near syncopal episode, recent trauma or falls, bowel incontinence, bladder incontinence, bowel retention, bladder retention, or any other complaints at this time. Onset (ago): day(s) Severity: mild Severity scale (1-10): 2 Relieving factors: none Exacerbating factors: none Associated symptoms: cough Treatments prior to arrival: none Related Data Previous Rx's Medication Instructions Recorded ibuprofen 800 mg tablet 800 mg PO Q8H PRN pain 30 days #90 11/21/22 tabs triamcinolone acetonide 0.1 % 1 appl topical DAILY PRN rash 30 11/21/22 topical cream days #30 grams benzonatate 100 mg capsule 100 mg PO BID PRN cough 7 days #14 12/27/22 caps Allergies Allergy/AdvReac Type Severity Reaction Status Date / Time No Known Allergies Allergy Verified 12/27/22 11:14 [No Known Allergies*] Review of Systems Constitutional: Constitutional: Reports no additional constitutional complaints, Denies chills, Denies fever(s) and Denies night sweats Eyes: Eyes: Reports no additional eye complaints, Denies blurry vision, Denies change in vision, Denies diplopia, Denies eye discharge, Denies loss of vision and Denies eye pain ENT: Denies dizziness Cardiovascular: Cardiovascular: Reports no additional cardiovascular complaints, Denies chest pain, Denies lightheadedness, Denies Loss of Consciousness and Denies dyspnea Respiratory: Respiratory: Reports no additional respiratory complaints, Reports cough and Denies dyspnea Gastrointestinal: Gastrointestinal: Reports no additional gastrointestinal complaints, Denies abdominal pain, Denies melena, Denies hematochezia, Denies change in bowel habits and Denies change in stool character Genitourinary: Genitourinary: Denies hematuria, Denies urinary frequency, Denies dysuria, Denies urinary incontinence, Denies urinary hesitancy and Denies urinary urgency Musculoskeletal: Musculoskeletal: Reports no additional musculoskeletal complaints, Denies numbness and Denies tingling Neurologic: Denies dizziness, Denies loss of vision, Denies numbness and Denies tingling Psychiatric: Psychiatric: Reports no additional psychiatric complaints Endocrine: Endocrine: Reports no additional endocrine complaints Hematologic/Lymphatic: Hematologic/Lymphatic: Reports no additional hematologic/lymphatic complaints Allergic/Immunologic: Allergic/Immunologic: Reports no additional allergic/immunologic complaints PMFSH Past Medical History Attestation statement: The following information was validated with the patient. Source: old records reviewed and nursing notes reviewed Medical History Missed with demise before 20 completed weeks of gestation Missed period Encounter for routine screening for malformation using ultrasound Rosacea Physical exam DUB (dysfunctional uterine bleeding) Allergic rhinitis Morbid obesity with BMI of 40.0-44.9, adult Chronic diarrhea Surgical History History of Family History Family History Mother Epilepsy Maternal Grandfather Cardiac arrest Social History Social History Household Members: Children Housing: Apartment Are you a primary childcare center administrator to a significant other at home: No Do you presently have visiting nurse or other home services: No Alcohol intake: never Patient Tobacco Use Status: Never used Tobacco e-Cigarette/Vaping Use: Never Used Second Hand Smoke Exposure: No Agree to transfusion: Yes Advance Directives: No Advance Directives Information Provided: Yes service: No Current occupational status: employed 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 [employer] Current occupational exposures/hazards: No Sexual orientation: Straight/Heterosexual Gender identity: Female Cognitive needs: No Hearing needs: No Vision needs: No Physical Exam ED Vital Signs: Vital Signs - 24 hr 12/27/22 11:14 Temperature 98.9 F Pulse Rate 103 H Respiratory Rate 18 Blood Pressure 123/83 Pulse Oximetry 99 Oxygen Delivery Method Room Air BMI result Body Mass Index 41.3 Const General: cooperative, no acute distress, alert and awake Nutritional Appearance: well nourished Orientation/consciousness: patient oriented x3 Limitations: no limitations HENMT Head: Yes normal to inspection and Yes atraumatic Ears: hearing grossly normal bilaterally and external ears normal General nose exam: Normal external nose present, no nasal discharge noted and no epistaxis Face and sinus: Yes normal facial exam, No abrasion and No laceration Mouth: Normal oral and palatal mucosa present, no drooling and no muffled voice Eyes General: appearance normal, both eyes and all related structures Periorbital: periorbital findings normal Eyelids: Yes eyelids normal Conjunctivae: conjunctivae normal Pupils: Equal, round and reactive pupils present EOM: EOMs intact bilaterally Neck Neck: Yes normal visual inspection, Yes full ROM and Yes no lymphadenopathy Chest Chest palpation & inspection: normal inspection of the chest Resp Effort & Inspection: normal respiratory effort and able to speak in complete sentences Auscultation: clear to auscultation bilaterally Cardio Rate: regular rate Rhythm: regular rhythm GI Inspection: Yes normal to inspection Neuro General: patient oriented x3 and moves all extremities Cranial nerves: Yes Equal, round and reactive pupils present Cognition (Neuro): normal cognition Motor exam (neuro): 5/5 motor strength present throughout Sensory Exam: Normal double simultaneous stimulation for sensation Coordination: [id number] test normal Extrem General: Yes normal to inspection, Yes full ROM and Yes capillary refill normal Psych Appearance: grossly normal Mental Status: mental status grossly normal Affect: normal affect Attitude: cooperative Thought process: Normal thought process present Thought content: Normal thought content present Insight: Good insight present (Psych) Course Course Course Narrative: RME:?32 yo female presenting with congestion, fever, body aches, and fever x4 days. Has been taking motrin at home.Her daughter has similar symptoms and tested positive for covid yesterday. Denies N/V, constipation, diarrhea, or decreased PO intake. Posterior pharynx with mild erythema. No tonsillar exudates. Uvula midline. Flu/covid/rsv ordered. Full HPI, ROS and PE to be performed by the primary ED provider. Medical Decision Making Medical Decision Making MDM Narrative: Patient is a 32 year old assigned female at with no reported medical history presenting to the emergency department today with a cough. Patient's physical exam was unremarkable. Patient's RSV/COVID/Influenza and strep swabs were negative. I explained my physical exam findings as well as all test results to the patient. I answered all questions asked by the patient. I stressed the importance of the patient taking her medication as prescribed. I stressed the importance of the patient following up with her primary care provider. I stressed the importance of the patient returning to the emergency department immediately if her symptoms were to worsen or if she were to develop any dizziness, shortness of breath, difficulty breathing, chest pain, blurry vision, loss of vision, nausea, vomiting, abdominal pain, fever, chills, back pain, or any other complaints. Patient verbalized agreement and understanding with this treatment plan and discharge. Differential Diagnosis Differential Diagnoses: The differential diagnosis associated with the presentation includes RSV Influenza URI COVID-19 Strep pharyngitis Lab Data MDM Lab Attestation statement: I reviewed the patient's lab results. My interpretation of these studies and their corresponding values is that they are grossly normal. Labs: Lab Results 12/27/22 12/27/22 Range/Units 11:22 11:25 Influenza Type A (PCR) NEGATIVE (Negative) Influenza Type B (PCR) NEGATIVE (Negative) RSV RNA Qual (PCR) NEGATIVE (Negative) SARS-CoV-2 RNA (RT-PCR) NEGATIVE (Negative) S. pyogenes GrpA KIRSTIE Negative (Negative) Prescription Management I considered prescription management with: Other (patient prescribed cough suppressant) Discharge Plan Discharge Clinical Impression: Upper respiratory infection Patient Disposition: Home, Self-Care Instructions: Upper Respiratory Infection (DC) Additional Instructions: Follow up with your primary care provider. Return to the emergency department immediately if your symptoms worsen or if you develop any dizziness, shortness of breath, difficulty breathing, chest pain, blurry vision, loss of vision, nausea, vomiting, abdominal pain, fever, chills, back pain, or any other complaints. Layla un seguimiento con wade proveedor de atenci?n primaria. Regrese al departamento de emergencias inmediatamente si jose eduardo s?ntomas empeoran o si presenta mareos, dificultad para respirar, dificultad para respirar, dolor en el pecho, visi?n borrosa, p?rdida de la visi?n, n?useas, v?mitos, dolor abdominal, fiebre, escalofr?os, dolor de espalda o cualquier otras quejas. Prescriptions: New benzonatate 100 mg capsule 100 mg PO BID PRN (Reason: cough) 7 Days Qty: 14 0RF No Action ibuprofen 800 mg tablet 800 mg PO Q8H PRN (Reason: pain) 30 Days Qty: 90 1RF triamcinolone acetonide 0.1 % cream 1 appl topical DAILY PRN (Reason: rash) 30 Days Qty: 30 0RF Referrals: Bre Coronado MD [Primary Care Provider] - Print Language: Hungarian
[2022-12-27 11:14] VITALS: BP 123/83; PULSE 103; RESP 18; TEMP 37.2; O2SAT 99; BMI 41.3
[2022-12-27 11:40] LABS: IDNOW Serial# 6674DD1D; Strep A Nucleic Acid Negative (Negative)
[2022-12-27 12:13] LABS: Influenza A PCR NEGATIVE (Negative); Influenza B PCR NEGATIVE (Negative); Resp Syncy Virus RNA Qual PCR NEGATIVE (Negative); SARS COV2 PCR INHOUSE NEGATIVE (Negative)
== END 2022-12-27 12:47 | disposition home or self-care (01) ==
PROVIDERS: Physician Assistant Medical; Emergency Provider Emergency Medicine; PCP Internal Medicine
DX: J06.9 Acute upper respiratory infection, unspecified (principal); R05.9 Cough, unspecified; R50.9 Fever, unspecified; Z20.822 Contact with and (suspected) exposure to COVID-19
CPT/HCPCS: 0241U; 87651; 99282; 99283

== ENCOUNTER 2023-02-09 11:11 | Outpatient (REF) | payer OTHER, SELFPAY ==
[2023-02-09 11:29] LABS: MANUAL DIFF FLAG NO
[2023-02-09 12:07] LABS: Basophils Absolute Auto 0.1 X10*3/uL (0.0-0.2); Basophils Percent Auto 0.7 % (0-2); Eosinophils Absolute Auto 0.1 X10*3/uL (0.0-0.4); Eosinophils Percent Auto 0.9 % (0-4); Hematocrit 39.2 % (37.0-47.0); Hemoglobin 12.1 g/dl (12.0-16.0); Imm Gran Abs Auto 0.05 X10*3/uL (0.00-0.03); Imm Gran Pct Auto 0.5 % (0.0-0.4); Lymphocytes Absolute Auto 3.9 X10*3/uL (1.2-4.9); Lymphocytes Percent Auto 42.2 % (20-40); Mean Corpuscular HGB Conc 30.9 g/dl (31.0-35.0); Mean Corpuscular Hemoglobin 25.9 pg (27.0-33.0); Mean Corpuscular Volume 83.8 fL (80.0-98.0); Mean Platelet Volume 9.8 fL (9.4-12.3); Monocytes Absolute Auto 0.5 X10*3/uL (0.1-1.2); Monocytes Percent Auto 5.7 % (2-11); Neutrophils Absolute Auto 4.6 x10*3/uL (2.0-8.3); Platelet Count 460 X10*3/uL (160-400); Red Blood Count 4.68 X10*6/uL (4.20-5.50); Red Cell Distribution Width 15.7 % (11.0-16.0); White Blood Count 9.2 X10*3/uL (4.8-10.8)
[2023-02-09 13:22] LABS: Alanine Aminotransferase 34 U/L (0-31); Albumin Level 4.2 g/dL (3.5-5.0); Alkaline Phosphatase 68 U/L (39-117); Anion Gap 11 (12-20); Aspartate Amino Transferase 35 U/L (5-31); Bilirubin Total 0.3 mg/dL (0.0-1.0); Blood Urea Nitrogen 13 mg/dL (9-16); Calcium 9.3 mg/dL (8.4-10.2); Carbon Dioxide 27 mmol/L (22-29); Chloride 105 mmol/L (96-108); Cholesterol 203 mg/dL (<200); Estimated Glomerular Filt Rate > 60; Glucose Fasting 81 mg/dL (60-99); HDL Cholesterol 49 mg/dL (>40); LDL Cholesterol Calculated 127 mg/dL (<100); Potassium 3.8 mmol/L (3.3-5.1); Sodium 139 mmol/L (135-145); Total Protein 8.4 g/dL (6.5-8.0); Triglycerides 135 mg/dL (<150)
[2023-02-09 13:49] LABS: Vitamin B12 419 pg/mL (200-900)
[2023-02-09 14:15] LABS: Free T4 (Free Thyroxine) 0.79 ng/dL (0.71-1.85)
== END 2023-02-09 11:12 | disposition home or self-care (01) ==
LOC: HO.LAB 11:11
PROVIDERS: PCP Internal Medicine; Visit Provider Nurse Practitioner Family
DX: Z00.00 Encounter for general adult medical examination without abnormal findings (principal)
CPT/HCPCS: 36415; 80053; 80061; 82607; 82746; 84439; 84443; 85025

== ENCOUNTER 2023-04-05 07:36 | Outpatient (REF) | payer OTHER, SELFPAY | END 2023-04-05 07:37 | disposition home or self-care (01) | LOC: HO.LAB 07:36 | PROVIDERS: PCP Internal Medicine; Visit Provider Nurse Practitioner Family | DX: Z13.89 Encounter for screening for other disorder (principal) ==

== ENCOUNTER 2023-04-17 10:19 | Outpatient (AMB) | payer OTHER, SELFPAY ==
--- NOTE | 2023-04-17 10:25 | A.OFFPC_ITS ---
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 Required: No Accompanied by: Self / Same As Patient Allergies No Known Allergies [No Known Allergies*] Allergy (Verified 04/17/23 10:49) Medication List - Last Reconciled 04/17/23 by Bre Hinds MD doxycycline monohydrate 50 mg PO DAILY ibuprofen 800 mg PO Q8H PRN 30 days metronidazole 0.75% appl topical Tobacco use date assessed: 04/17/23 Dental Screening Dental Screen Date: 04/17/23 Did you have a dental visit in the last 12 months?: Yes Did you have a dental problem in the last 6 months where you did not have access to dental care?: No Was dental information given to patient?: Patient has dentist HPI HPI Comments History of Present Illness Details This is a 32-year-old female with morbid obesity and chronic lumbar pain that comes today complaining of lumps in ear lobes that bothers her and would like that to be removed. Last labs were discussed and had elevated TSH in which it will be repeated. Also had elevated cholesterol that will also be repeated and was advised to do a low-cholesterol diet. She is morbidly obese with a BMI of 41 and will be referred to weight management. Also has chronic lumbar pain relieved by NSAIDs as needed. No chest pain or shortness a breath. [facility] Medical History (Updated 04/17/23 @ 11:09 by Bre Hinds MD) Missed with demise before 20 completed weeks of gestation Missed period Encounter for routine screening for malformation using ultrasound Rosacea Physical exam DUB (dysfunctional uterine bleeding) Allergic rhinitis Morbid obesity with BMI of 40.0-44.9, adult Chronic diarrhea Surgical History History of Family History Mother Epilepsy Maternal Grandfather Cardiac arrest Social History Household Members: Children Both parents involved: Yes Caregiver staying overnight: No Housing: Apartment Are you a primary special needs caregiver to a significant other at home: No Do you presently have visiting nurse or other home services: No 75 years or older and lives alone: No Alcohol intake: never Patient Tobacco Use Status: Never used Tobacco e-Cigarette/Vaping Use: Never Used Second Hand Smoke Exposure: No Agree to transfusion: Yes service: No Current occupational status: employed 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 1. Little interest or pleasure in doing things: not at all 2. Feeling down, depressed, or hopeless: not at all 3. Trouble falling or staying asleep, or sleeping too much: not at all 4. Feeling tired or having little energy: not at all 5. Poor appetite or overeating: not at all 6. Feeling bad about yourself - or that you are a failure or have let yourself or your family down: not at all 7. Trouble concentrating on things, such as reading the newspaper or watching television: not at all 8. Moving or speaking so slowly that other people could have noticed. Or the opposite - being so fidgety or restless that you have been moving around a lot more than usual: not at all 9. Thoughts that you would be better off or of hurting yourself in some way: not at all Total score: 0 Depression Screening Interpretation: Negative Depression Screening Done: Yes 84249 - PHQ-9 Billing: Yes Source: Developed by Drs. Scotty Og, Katya Marley, Kody Ferrara and colleagues, with an educational yaniv from [employer]. Thrive Questionnaire Date Thrive assessed: 04/17/23 I am a: Patient What is your living situation today?: I have a steady place to live Within the past 12 months, did the food you bought not last and you didn't have the money to get more?: Never true Within the past 12 months, did you worry whether your food would run out before you got money to buy more?: Never true Do you have trouble paying for medicines?: No Do you have trouble getting transportation to medical appointments?: No Do you have trouble paying your heating and electricity bill?: No Do you have trouble taking care of your child, family member or friend?: No Do you have trouble with day-to-day activities such as bathing, preparing meals, shopping, managing finances, etc.?: No Are you currently unemployed and looking for a job?: No Are you interested in more education?: No Please select the resources that you would like help with: None AUDIT C Alcohol Use Questionnaire (AUDIT-C) 1. How often do you have a drink containing alcohol?: Monthly or less 2. How many drinks containing alcohol do you have on a typical day when you are drinking?: 1 or 2 3. How often do you have six or more drinks on one occasion?: Never Total Score: 1 Score Reviewed/Action Taken: No LARON-7 AMB Questionnaire LARON-7 Date LARON - 7 assessed: 04/17/23 Feeling nervous, anxious, or on edge: 0 = Not at all Not being able to stop or control worryin = Not at all Worrying too much about different things: 0 = Not at all Trouble relaxin = Not at all Being so restless that it is hard to sit still: 0 = Not at all Becoming easily annoyed or irritable: 0 = Not at all Feeling afraid as if something awful might happen: 0 = Not at all Total LARON-7 score (0-4 normal; 5-9 mild; 10-14 moderate; 15-21 severe): 0 Source: Developed by Drs. Scotty Og, Katya Marley, Kody Ferrara and colleagues, with an educational yaniv from [employer]. LARON-7 Assessment Billing LARON-7 Assessment Tool: LARON-7 Assessment 52586 Review of Systems Const All systems reviewed & are unremarkable except as noted in HPI and below Eyes Reports no additional complaints, Denies change in vision and Denies other visual disturbances Card Denies chest pain at rest, Denies chest pain with activity, Denies edema, Denies irregular heart rhythm, Denies claudication, Denies dyspnea, Denies dyspnea on exertion, Denies orthopnea, Denies paroxysmal nocturnal dyspnea and Denies slow heart rate Resp Denies cough, Denies dyspnea and Denies dyspnea on exertion GI Denies abdominal pain, Denies change in bowel habits, Denies excessive flatus, Denies nausea and Denies vomiting Denies urinary incontinence, Denies urinary hesitancy and Denies urinary urgency Musc Denies atrophy, Denies deformity and Denies limited range of motion Physical exam (Primary Care) Vital Signs: Last Vital Signs BP 120/82 04/17/23 10:26 BMI result Body Mass Index 41.0 Tobacco/Smoking Status: Tobacco use Status Tobacco use date assessed 04/17/23 04/17/23 10:28 Patient Tobacco Use Status Never used Tobacco 04/17/23 10:28 e-Cigarette/Vaping Use Never Used 04/17/23 10:28 PHQ-9: PHQ-9 Score PHQ-9: Total score 0 04/17/23 10:52 Depression Screening Interpretation: Negative Thrive Assessment: Date of Thrive Assessment Date Thrive assessed 04/17/23 04/17/23 10:31 Const Orientation/consciousness: patient oriented x3 Eyes General: appearance normal, both eyes and all related structures Eyelids: Yes eyelids normal Conjunctivae: conjunctivae normal Neck Neck: Yes normal visual inspection and Yes supple Resp Effort & Inspection: normal respiratory effort Auscultation: clear to auscultation bilaterally Cardio Jugular venous distension: no JVD Rate: regular rate Rhythm: regular rhythm Heart sounds: S1 normal heart sound present and S2 normal heart sound present Skin General skin exam: no rashes or lesions noted Neuro General: patient oriented x3 and no focal motor deficits Extrem General: Yes full ROM Office Procedures Flu Questionnaire Does the patient have a severe egg allergy?: No Immunizations flu vacc [id number] 6mos up(PF) 60 mcg(15 mcgx4)/0.5 mL IM syringe Performing Provider: Bre Hinds MD [facility] Documented (not given) by: CHANCE Moss on 04/17/23 10:37 Reason Not Given: Patient Refused Assessment and Plan Assessment & Plan (1) Morbid obesity with BMI of 40.0-44.9, adult: Code(s): E66.01 - Morbid (severe) obesity due to excess calories; Z68.41 - Body mass index [BMI] 40.0-44.9, adult Plan: Referred to weight management. BMI goal is less than 30. (2) Elevated TSH: Code(s): R79.89 - Other specified abnormal findings of blood chemistry Plan: Repeat TSH. (3) Lumbar pain: Code(s): M54.50 - Low back pain, unspecified Plan: Continue NSAIDs. (4) Dyslipidemia: Code(s): E78.5 - Hyperlipidemia, unspecified Plan: Repeat lipid panel. Start low-cholesterol diet. (5) Lump of ear: Code(s): H93.8X9 - Other specified disorders of ear, unspecified ear Qualifiers: Laterality: bilateral Qualified Code(s): H93.8X3 - Other specified disorders of ear, bilateral Plan: Referred to Plastic surgery. Orders: Orders Lipid Panel Today E78.5 - Hyperlipidemia, unspecified Comprehensive [place]. Panel Fast Today E66.01 - Morbid (severe) obesity due to excess calories, Z68.41 - Body mass index [BMI] 40.0-44.9, adult Influenza [id number] Immunization Today Z23 - Encounter for immunization Vitamin D 25-OH Total Today E55.9 - Vitamin D deficiency, unspecified Referrals Medical Weight Management Referral E66.01 - Morbid (severe) obesity due to excess calories, Z68.41 - Body mass index [BMI] 40.0-44.9, adult Plastic Surgery Referral H93.8X9 - Other specified disorders of ear, unspecified ear Coding Level of Care Code Est Pt Level 4 (67963) Diagnoses Morbid obesity with BMI of 40.0-44.9, adult E66.01; Z68.41 Elevated TSH R79.89 Lumbar pain M54.50 Dyslipidemia E78.5 Mass of both ears H93.8X3 Laterality: bilateral Additional Codes LARON-7 Assessment Billing - LARON-7 Assessment Tool: LARON-7 Assessment 76607 ([id number]) Time Spent (min) 22
[2023-04-17 10:26] VITALS: BP 120/82; BMI 41.0
== END 2023-04-17 10:57 | disposition home or self-care (01) ==
PROVIDERS: PCP Nurse Practitioner Family; Visit Provider Internal Medicine
DX: R79.89 Other specified abnormal findings of blood chemistry (principal); E66.01 Morbid (severe) obesity due to excess calories; Z68.41 Body mass index [BMI] 40.0-44.9, adult; M54.50 Low back pain, unspecified; E78.5 Hyperlipidemia, unspecified; H93.8X3 Other specified disorders of ear, bilateral
CPT/HCPCS: 99214

== ENCOUNTER 2023-07-07 07:08 | Outpatient (REF) | payer OTHER, SELFPAY ==
[2023-07-07 08:45] LABS: Alanine Aminotransferase 23 U/L (0-31); Albumin Level 4.1 g/dL (3.5-5.0); Alkaline Phosphatase 66 U/L (39-117); Anion Gap 11 (12-20); Aspartate Amino Transferase 24 U/L (5-31); Bilirubin Total 0.4 mg/dL (0.0-1.0); Blood Urea Nitrogen 10 mg/dL (9-16); Calcium 9.7 mg/dL (8.4-10.2); Carbon Dioxide 27 mmol/L (22-29); Chloride 106 mmol/L (96-108); Cholesterol 175 mg/dL (<200); Estimated Glomerular Filt Rate > 60; Glucose Fasting 112 mg/dL (60-99); HDL Cholesterol 43 mg/dL (>40); LDL Cholesterol Calculated 109 mg/dL (<100); Potassium 4.3 mmol/L (3.3-5.1); Sodium 140 mmol/L (135-145); Total Protein 7.9 g/dL (6.5-8.0); Triglycerides 115 mg/dL (<150)
[2023-07-07 09:00] LABS: Vitamin D 25-OH Total 22.8 ng/mL (>30)
== END 2023-07-07 07:09 | disposition home or self-care (01) ==
LOC: HO.LAB 07:08
PROVIDERS: PCP Internal Medicine; Visit Provider Internal Medicine
DX: E66.01 Morbid (severe) obesity due to excess calories (principal); E55.9 Vitamin D deficiency, unspecified; E78.5 Hyperlipidemia, unspecified; Z68.41 Body mass index [BMI] 40.0-44.9, adult
CPT/HCPCS: 36415; 80053; 80061; 82306

== ENCOUNTER 2023-07-18 10:06 | Outpatient (AMB) | payer OTHER, SELFPAY ==
[2023-07-18 10:12] VITALS: BP 110/72; BMI 41.2
--- NOTE | 2023-07-18 10:12 | A.OFFPC_ITS ---
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 She is morbidly obese with a BMI of 41.2 and is enroll in weight management for possible weight loss surgery. Last Pap smear was 2021 and was normal. No chest pain or shortness of breath. Complains of right knee pain with no previous trauma that started few months ago. Has full active range of motion. [facility] Medical History (Updated 07/18/23 @ 10:46 by Bre Hinds MD) Missed with demise before 20 completed weeks of gestation Missed period Encounter for routine screening for malformation using ultrasound Rosacea Physical exam DUB (dysfunctional uterine bleeding) Allergic rhinitis Morbid obesity with BMI of 40.0-44.9, adult Chronic diarrhea Surgical History History of Family History (Updated 07/18/23 @ 10:36 by Bre Hinds MD) Mother Epilepsy Maternal Grandfather Cardiac arrest Father No problems noted. Social History (Updated 07/18/23 @ 10:37 by Bre Hinds MD) Household Members: Children Both parents involved: Yes Caregiver staying overnight: No Housing: Apartment Are you a primary acute care assistant to a significant other at home: No Do you presently have visiting nurse or other home services: No 75 years or older and lives alone: No Alcohol intake: current Alcohol intake frequency: holidays/special occasions only Alcohol type: wine Patient Tobacco Use Status: Never used Tobacco e-Cigarette/Vaping Use: Never Used Second Hand Smoke Exposure: No Agree to transfusion: Yes service: No Current occupational status: employed Current occupation: [employer] Current occupational exposures/hazards: No Sexual orientation: Straight/Heterosexual Gender identity: Female Cognitive needs: No Hearing needs: No Vision needs: Yes Female Reproductive History Menstrual Age of Menarche: 10 Questionnaire Thrive Questionnaire Date Thrive assessed: 04/17/23 AUDIT C Alcohol Use Questionnaire (AUDIT-C) 1. How often do you have a drink containing alcohol?: Monthly or less 2. How many drinks containing alcohol do you have on a typical day when you are drinking?: 1 or 2 3. How often do you have six or more drinks on one occasion?: Never Total Score: 1 Score Reviewed/Action Taken: No LARON-7 AMB Questionnaire LARON-7 Date LARON - 7 assessed: 04/17/23 Source: Developed by Drs. Scotty Og, Katya Marley, Kody Ferrara and colleagues, with an educational yaniv from [employer]. Review of Systems Const All systems reviewed & are unremarkable except as noted in HPI and below Eyes Reports no additional complaints, Denies change in vision and Denies other visua l disturbances Card Denies chest pain at rest, Denies chest pain with activity, Denies edema, Denies irregular heart rhythm, Denies claudication, Denies dyspnea, Denies dyspnea on exertion, Denies orthopnea, Denies paroxysmal nocturnal dyspnea and Denies slow heart rate Resp Denies cough, Denies dyspnea and Denies dyspnea on exertion GI Denies abdominal pain, Denies change in bowel habits, Denies excessive flatus, Denies nausea and Denies vomiting Denies urinary incontinence, Denies urinary hesitancy and Denies urinary urgency Musc Denies abnormal gait, Denies atrophy, Denies deformity and Denies limited range of motion Skin/Breast Denies bleeding lesions, Denies changing lesions and Denies rash Neuro Denies abnormal gait, Denies behavioral changes, Denies confusion and Denies lack of coordination Psych Denies behavioral changes and Denies confusion Physical exam (Primary Care) Vital Signs: Last Vital Signs BP 110/72 07/18/23 10:12 BMI result Body Mass Index 41.2 BMI Assessment/Plan discussion: High BMI High, discussed plan: lifestyle, weight reduction, dietary and physical activity Tobacco/Smoking Status: Tobacco use Status Tobacco use date assessed 04/17/23 07/18/23 10:17 Patient Tobacco Use Status Never used Tobacco 07/18/23 10:17 e-Cigarette/Vaping Use Never Used 07/18/23 10:17 Thrive Assessment: Date of Thrive Assessment Date Thrive assessed 04/17/23 07/18/23 10:17 Const General: No confusion Orientation/consciousness: patient oriented x3 and No confusion HENMT Head: Yes normal to inspection, Yes normocephalic and Yes atraumatic Ears: external ears normal Eyes General: appearance normal, both eyes and all related structures Eyelids: Yes eyelids normal Conjunctivae: conjunctivae normal Neck Neck: Yes normal visual inspection and Yes supple Thyroid: diffusely enlarged Resp Effort & Inspection: normal respiratory effort Auscultation: clear to auscultation bilaterally Cardio Jugular venous distension: no JVD Rate: regular rate Rhythm: regular rhythm Heart sounds: S1 normal heart sound present and S2 normal heart sound present GI Inspection: Yes normal to inspection Palpation (GI): Soft to palpation and nontender Auscultation: normal bowel sounds Skin General skin exam: no rashes or lesions noted Neuro General: patient oriented x3, no focal motor deficits and No confusion Extrem General: Yes full ROM Psych Appearance: grossly normal Assessment and Plan Assessment & Plan (1) Physical exam: Code(s): Z00.00 - Encounter for general adult medical examination without abnormal findings Plan: Repeat in a year. (2) Morbid obesity with BMI of 40.0-44.9, adult: Code(s): E66.01 - Morbid (severe) obesity due to excess calories; Z68.41 - Body mass index [BMI] 40.0-44.9, adult Plan: Dietary changes were advised. Follow-up with weight management. BMI goal is less than 30. Orders: Orders Thyroid Stimulating Hormone Today R79.89 - Other specified abnormal findings of blood chemistry Thyroid Peroxidase Antibodies Today R79.89 - Other specified abnormal findings of blood chemistry Comprehensive [place]. Panel Fast 6 Months R73.03 - Prediabetes US thyroid Today E04.9 - Nontoxic goiter, unspecified Free T4 (Free Thyroxine) Today R79.89 - Other specified abnormal findings of blood chemistry Thyroglobulin Antibodies Today R79.89 - Other specified abnormal findings of blood chemistry XR knee RT 2V Today M25.561 - Pain in right knee Referrals Orthopedics Referral M25.561 - Pain in right knee Medications: New cholecalciferol (vitamin D3) 25 mcg PO DAILY 90 days 90 caps 1RF Coding Level of Care Code Est Pt Prev Care 18-39y(85762) Diagnoses Physical exam Z00.00 Morbid obesity with BMI of 40.0-44.9, adult E66.01; Z68.41 Time Spent (min) 32
== END 2023-07-18 10:45 | disposition home or self-care (01) ==
PROVIDERS: PCP Nurse Practitioner Family; Visit Provider Internal Medicine
DX: Z00.00 Encounter for general adult medical examination without abnormal findings (principal); E66.01 Morbid (severe) obesity due to excess calories; Z68.41 Body mass index [BMI] 40.0-44.9, adult
CPT/HCPCS: 99395

== ENCOUNTER 2023-07-26 12:29 | Outpatient (REF) | payer OTHER, SELFPAY ==
--- NOTE | ~2023-07-26 | XR_ITS ---
EXAMINATION: XR KNEE, RIGHT CLINICAL INFORMATION: Pain in right knee. COMPARISON: 11/21/2018. TECHNIQUE: Two views of the right knee. FINDINGS: No significant joint effusion. Small medial marginal osteophytes. Mild narrowing of the medial compartment. XR/XR knee RT 2V IMPRESSION: Mild degenerative changes in the medial compartment.
--- NOTE | ~2023-07-26 | US_ITS ---
EXAMINATION: US THYROID CLINICAL INFORMATION: Nontoxic goiter, unspecified. COMPARISON: None available. TECHNIQUE: Linear transducer alfaro-scale and color Doppler examination with attention to the region of the thyroid. FINDINGS: SIZE: Measurements of the thyroid lobes and nodules are given in sagittal, anteroposterior and transverse dimensions respectively. Right Thyroid Lobe: 4.5 x 1.0 x 1.3 cm, volume 3.0 mL. Parenchyma: The gland echotexture is homogeneous. Thyroid vascularity is normal. Left Thyroid Lobe: 3.9 x 1.0 x 1.2 cm, volume 2.5 mL. Parenchyma: The gland echotexture is homogeneous. Thyroid vascularity is normal. Isthmus: 0.2 cm in maximum AP dimension. No suspicious thyroid nodule is seen. NODES: No lymphadenopathy is seen in the tissue surrounding the thyroid gland. US/US thyroid IMPRESSION: No suspicious thyroid nodules. ACR TI-RADS RECOMMENDATION REFERENCE: Ultrasound-guided fine-needle aspiration, followup ultrasound, no further follow up. * TR1 (0 point) and TR2 (2 points): No FNA or follow up. * TR3 (3 points): FNA if more than or equal to 2.5 cm in maximum dimension, followup ultrasound in 1, 3 and 5 years if 1.5 to 2.4 cm in maximum dimension. * TR4 (4-6 points): FNA if more than or equal to 1.5 cm in maximum dimension, followup ultrasound in 1, 2, 3 and 5 years if 1 to 1.4 cm in maximum dimension. * TR5 (more than or equal to 7 points): FNA if more than or equal to 1 cm in maximum dimension, followup ultrasound every year for 5 years if 0.5 to 0.9 cm in maximum dimension. * TR3, TR4 or TR5 nodules that are below the size threshold for followup receive no follow up.
[2023-07-26 14:58] LABS: Free T4 (Free Thyroxine) 0.73 ng/dL (0.71-1.85); Thyroid Stimulating Hormone 4.08 uIU/mL (0.32-4.0)
[2023-07-27 23:18] LABS: Thyroglobulin Antibodies <1 IU/mL (< or = 1); Thyroid Peroxidase Antibodies 1 IU/mL (<9)
== END 2023-07-26 12:30 | disposition home or self-care (01) ==
LOC: HO.US 12:29
PROVIDERS: PCP Internal Medicine; Visit Provider Internal Medicine
DX: E04.9 Nontoxic goiter, unspecified (principal); M25.561 Pain in right knee; R79.89 Other specified abnormal findings of blood chemistry
CPT/HCPCS: 36415; 73560; 76536; 84439; 84443; 86376; 86800

== ENCOUNTER 2023-09-06 10:21 | Outpatient (AMB) | payer OTHER, SELFPAY ==
--- NOTE | 2023-09-06 10:23 | MHC.OFFVIS ---
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 The patient states that her symptoms have gotten worse for the last 6 months in spite of continued non operative treatments. She has done physical therapy which aggravated her symptoms. She has also tried Tylenol and ibuprofen which gave her minimal relief. The patient states that it feels like her right knee will give out, especially when she is going up and down stairs. Most of the pain is along the medial aspect of her knee. Allergies No Known Allergies [No Known Allergies*] Allergy (Verified 09/06/23 10:23) Medication List - Last Reconciled 09/06/23 by Maulik Bales MD cholecalciferol (vitamin D3) 25 mcg PO DAILY 90 days ibuprofen 800 mg PO Q8H PRN 30 days metronidazole 0.75% appl topical PFSH Medical History Missed with demise before 20 completed weeks of gestation Missed period Encounter for routine screening for malformation using ultrasound Rosacea Physical exam DUB (dysfunctional uterine bleeding) Allergic rhinitis Morbid obesity with BMI of 40.0-44.9, adult Chronic diarrhea Surgical History History of Family History (Updated 07/18/23 @ 10:36 by Bre Hinds MD) Mother Epilepsy Maternal Grandfather Cardiac arrest Father No problems noted. Social History (Updated 07/18/23 @ 10:37 by Bre Hinds MD) Household Members: Children Both parents involved: Yes Caregiver staying overnight: No Housing: Apartment Are you a primary urgent care nurse practitioner to a significant other at home: No Do you presently have visiting nurse or other home services: No 75 years or older and lives alone: No Alcohol intake: current Alcohol intake frequency: holidays/special occasions only Alcohol type: wine Patient Tobacco Use Status: Never used Tobacco e-Cigarette/Vaping Use: Never Used Second Hand Smoke Exposure: No Agree to transfusion: Yes service: No Current occupational status: employed 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 Current occupational exposures/hazards: No Sexual orientation: Straight/Heterosexual Gender identity: Female Cognitive needs: No Hearing needs: No Vision needs: Yes Female Reproductive History Menstrual Age of Menarche: 10 Physical Exam Const Other: Well-nourished well-developed very friendly female awake alert and oriented x3 in no acute distress Extrem Other: Bilateral lower extremity examination shows good capillary refill, no skin lesions noted, normal sensation light touch Right knee examination shows a minimal effusion, minimal crepitus with range of motion, tenderness along her medial joint line, positive Nhan's test, no instability Results Reviewed Results Reviewed: Standing full weight-bearing x-rays of the patient's right knee show minimal joint space narrowing, no acute bony abnormalities Assessment & Plan Assessment & Plan (1) Right knee pain: Code(s): M25.561 - Pain in right knee Category: Medical Plan Ms. Michael Ortiz presents with right knee pain and mechanical symptoms most likely due to a tear of her medial meniscus. Thus, I will send the patient for an MRI of her right knee for further evaluation. I will see her back once the MRI is completed to discuss the findings and treatment options. The patient will continue with her activity modifications in the meantime. Feel free to call me at any time should questions regarding her orthopedic management arise. Thank you very much for asking me to see this very friendly patient. I spent 21 minutes in reviewing the patient's records and imaging studies, seeing the patient and documenting in the medical record. Orders: Orders MR knee RT wo con Today M25.561 - Pain in right knee Coding Level of Care Code New Pt Level 3 (63827) Diagnoses Right knee pain M25.561
== END 2023-09-06 10:42 | disposition home or self-care (01) ==
LOC: HO.HOS 10:21
PROVIDERS: PCP Internal Medicine; Visit Provider Orthopaedic Surgery
DX: M25.561 Pain in right knee (principal)
CPT/HCPCS: 99203

== ENCOUNTER → 2023-09-06 10:21 | Outpatient (BNVA) | payer OTHER, SELFPAY | PROVIDERS: PCP Internal Medicine; Visit Provider Orthopaedic Surgery | DX: M25.561 Pain in right knee (principal) | CPT/HCPCS: 99202 ==

== ENCOUNTER 2023-11-20 09:57 | Outpatient (AMB) | payer OTHER, SELFPAY ==
[2023-11-20 10:21] VITALS: BP 122/70; BMI 42.3
--- NOTE | 2023-11-20 10:21 | MHC.OFFVIS ---
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 She said it has been like this more less since she gave to her 3rd child with by at [facility] and had a tubal ligation and she attributed the connection to the tubal ligation.. She admits that she has gained lots of weight since her 3rd child was born. She has been very busy her 2 older children 1 of whom has challenges with mental health and that has occupied all of her energy. She admits she has been told that she is prediabetic and has fatty liver. She says she just had a telephone visit with a road inspector at [facility] weight loss offices/clinic and has a plan to follow-up in a month and is starting to work on weight loss by eating more protein and eat more healthy with a goal towards having bariatric surgery when she has lost sufficient weight. She is sexually active with her she had a tubal ligation. Previously she was devoting all of her attention to her children but she is turning her attention to her health now [facility] Medical History Missed with demise before 20 completed weeks of gestation Missed period Encounter for routine screening for malformation using ultrasound Rosacea Physical exam DUB (dysfunctional uterine bleeding) Allergic rhinitis Morbid obesity with BMI of 40.0-44.9, adult Chronic diarrhea Surgical History (Updated 11/20/23 @ 10:25 by Jerzy Garg CMA) History of bilateral tubal ligation History of Family History (Updated 07/18/23 @ 10:36 by Bre Hinds MD) Mother Epilepsy Maternal Grandfather Cardiac arrest Father No problems noted. Social History (Updated 07/18/23 @ 10:37 by Bre Hinds MD) Household Members: Children Both parents involved: Yes Caregiver staying overnight: No Housing: Apartment Are you a primary animal care technician to a significant other at home: No Do you presently have visiting nurse or other home services: No 75 years or older and lives alone: No Alcohol intake: current Alcohol intake frequency: holidays/special occasions only Alcohol type: wine Patient Tobacco Use Status: Never used Tobacco e-Cigarette/Vaping Use: Never Used Second Hand Smoke Exposure: No Agree to transfusion: Yes service: No Current occupational status: employed 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 Current occupational exposures/hazards: No Sexual orientation: Straight/Heterosexual Gender identity: Female Cognitive needs: No Hearing needs: No Vision needs: Yes Female Reproductive History Menstrual Age of Menarche: 10 Duration of menses: other Date of last menstrual period: 11/12/23 control method: permanent sterilization Total pregnancies: 3 Full term: 3 Date of last pap smear: 08/19/21 (negative) Physical Exam Vital Signs: Last Vital Signs BP 122/70 11/20/23 10:21 BMI result Body Mass Index 42.3 Const Nutritional Appearance: obese Assessment & Plan Assessment & Plan (1) Pre-diabetes: Code(s): R73.03 - Prediabetes Category: Medical (2) DUB (dysfunctional uterine bleeding): Code(s): N93.8 - Other specified abnormal uterine and vaginal bleeding Category: Medical (3) Morbid obesity with BMI of 40.0-44.9, adult: Code(s): E66.01 - Morbid (severe) obesity due to excess calories; Z68.41 - Body mass index [BMI] 40.0-44.9, adult Category: Medical Plan Patient is here to discuss her abnormal periods she gets periods monthly but recently they have been stopping and starting and stopping and starting.. She said it has been like this more less since she gave to her 3rd child with by at [facility] and had a tubal ligation and she attributed the connection to the tubal ligation.. She admits that she has gained lots of weight since her 3rd child was born. She has been very busy her 2 older children 1 of whom has challenges with mental health and that has occupied all of her energy. She admits she has been told that she is prediabetic and has fatty liver. She says she just had a telephone visit with a road inspector at [facility] weight loss offices/clinic and has a plan to follow-up in a month and is starting to work on weight loss by eating more protein and eat more healthy with a goal towards having bariatric surgery when she has lost sufficient weight. She is sexually active with her she had a tubal ligation. Previously she was devoting all of her attention to her children but she is turning her attention to her health now She was curious about having an ultrasound. I explained to her that everything that is going on with her pre diabetes and her fatty liver and her abnormal cycles is all related to the weight issue and it is all a signal and is symptom of what happens when we are way over healthy body weight and are organ systems are trying to compensate.. I am ordering a pelvic ultrasound for her and she needs an annual exam with Pap smear and full exam and review that ultrasound at the next visit and then after that if need be we will plan on an endometrial biopsy it if it is called for and discuss further what medication options there might be to address this such as a Mirena.. Her next visit will be for her full annual with pelvic with ultrasound review. She told me she believes she is up-to-date on her fasting labs from her primary care provider Dr. Menezes and she will be also following up with the bariatric program at [facility].. Orders: Orders US pelvic and transvaginal Today E66.01 - Morbid (severe) obesity due to excess calories, N93.8 - Other specified abnormal uterine and vaginal bleeding, R73.03 - Prediabetes, Z68.41 - Body mass index [BMI] 40.0-44.9, adult Coding Level of Care Code Est Pt Level 3 (09062) Diagnoses Pre-diabetes R73.03 DUB (dysfunctional uterine bleeding) N93.8 Morbid obesity with BMI of 40.0-44.9, adult E66.01; Z68.41
== END 2023-11-20 11:46 | disposition home or self-care (01) ==
LOC: HO.HWSM 09:57
PROVIDERS: PCP Internal Medicine; Visit Provider Advanced Practice Midwife
DX: R73.03 Prediabetes (principal); N93.8 Other specified abnormal uterine and vaginal bleeding; E66.01 Morbid (severe) obesity due to excess calories; Z68.41 Body mass index [BMI] 40.0-44.9, adult
CPT/HCPCS: 99213

== ENCOUNTER → 2023-11-20 09:57 | Outpatient (BNVA) | payer OTHER, SELFPAY | PROVIDERS: PCP Internal Medicine; Visit Provider Advanced Practice Midwife | DX: N93.8 Other specified abnormal uterine and vaginal bleeding (principal); R73.03 Prediabetes; E66.01 Morbid (severe) obesity due to excess calories; Z68.41 Body mass index [BMI] 40.0-44.9, adult | CPT/HCPCS: 99212 ==

== ENCOUNTER 2023-11-28 08:34 | Outpatient (REF) | payer OTHER, SELFPAY ==
--- NOTE | ~2023-11-28 | MR_ITS ---
EXAMINATION: MR KNEE WITHOUT CONTRAST, RIGHT CLINICAL INFORMATION: Right knee pain. Instability. Reduced range of motion. COMPARISON: Right knee radiographs dated 07/26/2023. TECHNIQUE: MRI of the knee without contrast was performed using routine sequences on a high-field scanner. FINDINGS: MENISCI: Medial Meniscus: Intact Lateral Meniscus: Intact LIGAMENTS: Cruciate: Increased T2 signal within the anterior cruciate ligament consistent with normal variation versus a grade 1 sprain. No measurable defect. Intact posterior cruciate ligament. Collateral: Minimal edema along the periphery of the medial collateral ligament consistent with a grade 1 sprain. Intact fibular collateral ligament. EXTENSOR MECHANISM: Superior and inferior patellar enthesophytes. Intact quadriceps and patellar tendons. No patella angelia. TT TG distance within normal limits. Edema within the superolateral aspect of Hoffa's fat pad, which can be seen in the setting of patellar tendon lateral femoral condyle friction syndrome. ARTICULAR CARTILAGE/BONE: Patellofemoral Compartment: Medial patellar facet articular cartilage signal heterogeneity. Medial Compartment: Intact articular cartilage. Lateral Compartment: Intact articular cartilage. JOINT FLUID AND BURSAE: Small joint effusion and trace Daley's cyst. MUSCLE/TENDONS: Increased T2 signal within the soleus muscle, consistent with a mild strain. MR/MR knee RT wo con IMPRESSION: 1. Probable grade 1 sprain of the anterior cruciate ligament. 2. Probable grade 1 sprain of the medial collateral ligament. 3. Edema within the superolateral aspect of Hoffa's fat pad, which can be seen in the setting of patellar tendon lateral femoral condyle friction syndrome. 4. Minimal patellofemoral arthrosis. Small joint effusion and trace Daley's cyst. 5. Mild strain of the soleus muscle. Electronically signed by: Vini Medina MD 11/29/2023 08:13 AM EDT
== END 2023-11-28 08:35 | disposition home or self-care (01) ==
LOC: HO.MRI 08:34
PROVIDERS: PCP Internal Medicine; Visit Provider Orthopaedic Surgery
DX: M25.561 Pain in right knee (principal)
CPT/HCPCS: 73721

== ENCOUNTER 2023-11-28 11:24 | Outpatient (REF) | payer OTHER, SELFPAY ==
--- NOTE | ~2023-11-28 | US_ITS ---
EXAMINATION: US PELVIS CLINICAL INFORMATION: Abnormal bleeding. COMPARISON: OB ultrasound of August 12, 2021. TECHNIQUE: Ultrasound of the pelvis is performed using both transabdominal and transvaginal transducers along with Doppler. Transvaginal imaging is performed due to inadequate visualization transabdominally. FINDINGS: The uterus is anteverted and measures 12.2 x 4.0 x 7.8 cm. Small amount of free fluid seen anteriorly, possibly associated with a section scar, but difficult to confirm. Endometrial thickness is 13 mm, although visualization of endometrium as well as the body and fundus of uterus is limited due to positioning and bowel gas. No significant free fluid. Bilateral ovaries are unremarkable. Right ovary measures 2.7 x 1.4 x 1.6 cm, volume 3.3 mL. Left ovary measures 2.6 x 2.1 x 1.5 cm, volume of 4.1 mL. US/US pelvic and transvaginal IMPRESSION: 1. Endometrial thickness is 13 mm, although visualization of endometrium as well as the body and fundus of uterus is limited due to positioning and bowel gas. 2. Small amount of free fluid seen anteriorly, possibly associated with a section scar, but difficult to confirm. 3. Unremarkable bilateral ovaries. Electronically signed by: Rima St MD 12/05/2023 03:48 PM EDT RP
== END 2023-11-28 11:25 | disposition home or self-care (01) ==
LOC: HO.US 11:24
PROVIDERS: PCP Internal Medicine; Visit Provider Advanced Practice Midwife
DX: N93.8 Other specified abnormal uterine and vaginal bleeding (principal); E66.01 Morbid (severe) obesity due to excess calories; Z68.41 Body mass index [BMI] 40.0-44.9, adult; R73.03 Prediabetes
CPT/HCPCS: 76830; 76856

== ENCOUNTER 2023-12-02 08:22 | Emergency (ER) | payer OTHER, SELFPAY ==
--- NOTE | ~2023-12-02 | XR_ITS ---
EXAMINATION: XR CHEST CLINICAL INFORMATION: Productive cough COMPARISON: 04/30/2019 TECHNIQUE: 2 views of the chest were obtained. FINDINGS: The lungs are clear with no focal consolidation. No evidence of pneumothorax, pulmonary edema, or pleural effusions. The cardiomediastinal contour is unremarkable. No acute osseous findings are seen. XR/XR chest 2V IMPRESSION: No acute cardiopulmonary findings. Electronically signed by: Eliot Barrios MD 12/02/2023 10:18 AM EDT
[2023-12-02 08:29] VITALS: BP 115/77; PULSE 87; RESP 18; TEMP 36.9; O2SAT 99; BMI 42.1
[2023-12-02 09:21] LABS: IDNOW Serial# 08D9AD1C; Strep A Nucleic Acid Negative (Negative)
[2023-12-02 09:28] LABS: COVID-19 Test Negative (Negative); IDNOW Serial# 152EDE1D
--- NOTE | 2023-12-02 09:50 | ED.GENADULT ---
HPI - General Adult General Chief complaint: Upper Respiratory Symptoms Stated complaint: throat discomfort Time Seen by Provider: 12/02/23 09:03 Source: patient and family (Has been) Mode of arrival: ambulatory Limitations: language barrier (Albanian speaking) History of Present Illness ED Provider: nils taylor pa-c HPI narrative: 33-year-old female with past medical history significant for rosacea, DUB presents to the ED today for evaluation of headache, myalgias, productive cough, sore throat x3 days. Reports her has been in child are ill with similar symptoms at home. Her child is not in daycare and is up-to-date on vaccinations. Denies known sick contacts. She denies fever, chills, chest pain, hemoptysis, shortness of breath/dyspnea, rash, odynophagia. Patient is Albanian-speaking. [facility] [place] treader offered to her however she would prefer her interpret for her. Related Data Home Medications ?Medication ?Instructions ?Recorded ?Confirmed metronidazole 0.75 % topical cream appl topical 04/17/23 11/20/23 Previous Rx's ?Medication ?Instructions ?Recorded cholecalciferol (vitamin D3) 25 25 mcg PO DAILY 90 days #90 caps 07/18/23 mcg (1,000 unit) capsule ibuprofen 800 mg tablet 800 mg PO Q8H PRN pain 30 days #90 09/18/23 tabs benzocaine 15 mg-menthol 2.6 mg 1 earnest mucous membrane Q2-4H PRN 12/02/23 lozenges (Cepacol Sore Throat sore throat #16 ea (benzocaine-menthol)) benzonatate 100 mg capsule 100 mg PO BID PRN cough #20 caps 12/02/23 Allergies Allergy/AdvReac Type Severity Reaction Status Date / Time No Known Allergies Allergy Verified 12/02/23 08:31 [No Known Allergies*] Review of Systems Review of Systems: Constitutional: No fever, chills, fatigue, night sweats, weight changes ENT/Mouth: No ear pain, hearing loss, nasal congestion, sinus pain, rhinorrhea, +sore throat Eyes: No eye pain, swelling, redness, vision changes, discharge Cardio: No chest pain, palpitations, CHOI, orthopnea, peripheral edema Pulm: No SOB, cough, sputum, wheezing, dyspnea, hemoptysis, +cough GI: No nausea, vomiting, hematemesis, abdominal pain, diarrhea, constipation, hematochezia, melena : No irregular bleeding, dysuria, frequency, urgency, hesitancy, hematuria, flank pain, urinary flow changes, urinary incontinence or retention MSK: No back pain, neck pain, joint pain, +myalgias Skin: No lesions, rashes Neuro: No weakness, numbness, paresthesias, LOC, dizziness, +headache Psych: No anxiety/panic, depression, SI/HI, AH/VH All other systems reviewed and are negative. [facility] Past Medical History Attestation statement: The following information was validated with the patient. Source: old records reviewed and nursing notes reviewed Medical History Missed with demise before 20 completed weeks of gestation Missed period Encounter for routine screening for malformation using ultrasound Rosacea Physical exam DUB (dysfunctional uterine bleeding) Allergic rhinitis Morbid obesity with BMI of 40.0-44.9, adult Chronic diarrhea Surgical History History of bilateral tubal ligation History of Family History Family History Mother Epilepsy Maternal Grandfather Cardiac arrest Father No problems noted. 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 Skin: Warm, dry, intact. No rashes or lesions. Head: Normocephalic, atraumatic. EENT: Hearing is intact b/l. Conjunctiva clear. PERRLA. Moist mucous membranes.? Posterior oropharynx erythematous without edema. No tonsillar exudates or masses. Uvula midline. Controlling secretions and speaking in complete sentences. Neck: Supple without LAD. FROM. Trachea midline.? Cardiac: Chest wall symmetric. RRR. No MRG. No JVD. Lungs: Normal respiratory effort without accessory muscle use. CTA bilaterally. No rales, rhonchi, or wheezes.? Abdomen: Soft, non-tender, non-distended. No rebound tenderness or guarding. Positive BS x4. Back: No midline spinous or paraspinal tenderness. No step off deformity. Ext: Upper and lower extremities atraumatic, without tenderness, deformity, swelling or erythema. Full ROM throughout. Neuro: AOx3. Normal speech. Strength 5/5 intact throughout. Sensation intact to light touch. NV intact distally. Reflexes 2+ bilaterally. Ambulating with steady gait. Psych: Appropriate mood and affect. Responds appropriately to questions. Course Reevaluation(s) Reevaluation #1: 0914 -- COVID and strep swabs ordered from triage. She has tested negative for COVID and strep. Will add on flu swab and chest x-ray to rule out pneumonia although less likely. 1101 -- patient tested negative for influenza. Chest x-ray does not demonstrate signs of pneumonia or effusion. Discussed results with patient. Likely viral upper respiratory infection. Will send Cepacol throat lozenges and Tessalon Perles to pharmacy for symptoms. Advised to take Tylenol and ibuprofen at home as needed for fevers or body aches. Patient has remained stable throughout ED visit today. Discussed worrisome signs and symptoms and when to return to the ED. All questions answered at this time. Patient is agreeable with disposition and stable for discharge. Medical Decision Making Medical Decision Making MDM Narrative: 33-year-old female with past medical history significant for rosacea, DUB presents to the ED today for evaluation of headache, myalgias, productive cough, sore throat x3 days. Vitals are stable. She is afebrile. She is nontoxic-appearing and in no acute distress. On exam, bilateral EACs and TMs WNL. Posterior oropharynx is erythematous however there is no edema or peritonsillar masses. No tonsillar exudates. Uvula midline. Controlling secretions and speaking in full clear sentences. Lungs are CTA bilaterally. No increased effort of breathing or tripoding. Skin is warm, dry, intact without rashes. Differential diagnosis includes viral syndrome, strep throat, headache, migraine, pneumonia, bronchitis. Unlikely SUPERVISOR WARPING DEPARTMENT, retropharyngeal abscess, epiglottitis, peritonsillar abscess. Plan for viral and strep swabs, chest x-ray and re-evaluation. Differential Diagnosis Differential Diagnoses: The differential diagnosis associated with the presentation includes As above Admission/Observation Not indicated Lab Data MDM Lab Attestation statement: I reviewed the patient's lab results. As above Labs: Lab Results 12/02/23 Range/Units 08:54 COVID-19 (RACQUEL) Negative (Negative) COVID-19 Clin Com See Note S. pyogenes GrpA KIRSTIE Negative (Negative) Independent Interpretation I performed an independent interpretation of an: Plain X-Ray Interpretation: Chest x-ray without infiltrate or consolidation, agree with radiologist's interpretation. Radiology Impression Discussion of test interpretation with radiology: I have reviewed the radiologist's reading. Radiologist Impression: EXAMINATION: XR CHEST CLINICAL INFORMATION: Productive cough COMPARISON: 04/30/2019 TECHNIQUE: 2 views of the chest were obtained. FINDINGS: The lungs are clear with no focal consolidation. No evidence of pneumothorax, pulmonary edema, or pleural effusions. The cardiomediastinal contour is unremarkable. No acute osseous findings are seen. XR/XR chest 2V IMPRESSION: No acute cardiopulmonary findings. Electronically signed by: Eliot Barrios MD 12/02/2023 10:18 AM EDT Independent Historian Clinical information obtained from an independent historian. History obtained from or confirmed by: Spouse () External Record Review External record reviewed: Inpatient record Prescription Management I considered prescription management with: Other (Cepacol, Tessalon Perles) Social Determinants Patient?s care significantly limited by Social Determinants of Health including: Other Social Determinant of Health Critical Care Time Critical Care Time Critical Care Time: No Discharge Plan Discharge Clinical Impression: Viral upper respiratory infection Patient Disposition: Home, Self-Care Instructions: Upper Respiratory Infection (ED), Viral Syndrome (ED) Additional Instructions: You tested negative for COVID and flu. Your chest x-ray is normal. You likely have a viral upper respiratory infection that does not require treatment with antibiotics. Treatment for this is symptomatic. Take Tylenol and ibuprofen at home as needed for fevers or body aches Tessalon Perles have been sent to your pharmacy for you to take as needed for cough. Cepacol throat lozenges have been sent to your pharmacy for you to take for sore throat. Please keep both of these out of reach of children. Follow-up with PCP as needed. Return with new or worsening symptoms. In the case of an emergency call 911. Prescriptions: New benzonatate 100 mg capsule 100 mg PO BID PRN (Reason: cough) Qty: 20 0RF Cepacol Sore Throat (shana-men) 15-2.6 mg lozenge 1 earnest mucous membrane Q2-4H PRN (Reason: sore throat) Qty: 16 0RF No Action ibuprofen 800 mg tablet 800 mg PO Q8H PRN (Reason: pain) 30 Days Qty: 90 1RF metronidazole 0.75 % cream topical cholecalciferol (vitamin D3) 25 mcg (1,000 unit) capsule 25 mcg PO DAILY 90 Days Qty: 90 1RF Referrals: Bre Coronado MD [Primary Care Provider] - Print Language: Albanian
[2023-12-02 11:03] VITALS: BP 114/66; PULSE 76; RESP 100; TEMP 36.2; O2SAT 100
[2023-12-02 11:10] VITALS: BP 114/66; PULSE 76; RESP 18; TEMP 36.2; O2SAT 100
[2023-12-02 11:47] LABS: IDNOW Serial# 152EDE1D; Influenza A Negative (Negative); Influenza B2 Negative (Negative)
== END 2023-12-02 11:11 | disposition home or self-care (01) ==
PROVIDERS: Physician Assistant Medical; Emergency Provider Emergency Medicine; PCP Internal Medicine
DX: J06.9 Acute upper respiratory infection, unspecified (principal); R05.9 Cough, unspecified; Z11.52 Encounter for screening for COVID-19; Z79.899 Other long term (current) drug therapy
CPT/HCPCS: 71046; 87502; 87635; 87651; 99282; 99283

== ENCOUNTER 2023-12-12 09:50 | Outpatient (AMB) | payer OTHER, SELFPAY ==
[2023-12-12 09:58] VITALS: BMI 42.1
--- NOTE | 2023-12-12 09:58 | MHC.OFFVIS ---
Vital Signs 12/12/23 09:58 Height 5 ft 6 in Weight 261 lb BMI 42.1 Intake Visit Reasons: MRI review Intake Note: Paige is a 33 year old female who presents with complaints of right knee pain and giving way. The patient describes her pain as sharp in nature. Most of the pain is along the medial aspect of her knee. She has tried Tylenol and ibuprofen which gave her mild relief. Her symptoms have gotten worse over the last 6 months. Government Program Manager Required: Yes Government Program Manager Language: Animal Researcher Name: Desean [id number] Allergies No Known Allergies [No Known Allergies*] Allergy (Verified 12/02/23 08:31) Medication List - Last Reconciled 12/12/23 by Maulik Bales MD benzocaine-menthol 15-2.6 mg (Cepacol Sore Throat (benzocaine-menthol)) 1 earnest mucous membrane Q2-4H PRN benzonatate 100 mg PO BID PRN cholecalciferol (vitamin D3) 25 mcg PO DAILY 90 days ibuprofen 800 mg PO Q8H PRN 30 days metronidazole 0.75% appl topical PFSH Medical History Missed with demise before 20 completed weeks of gestation Missed period Encounter for routine screening for malformation using ultrasound Rosacea Physical exam DUB (dysfunctional uterine bleeding) Allergic rhinitis Morbid obesity with BMI of 40.0-44.9, adult Chronic diarrhea Surgical History History of bilateral tubal ligation History of Family History Mother Epilepsy Maternal Grandfather Cardiac arrest Father No problems noted. 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 Current occupational exposures/hazards: No Sexual orientation: Straight/Heterosexual Gender identity: Female Cognitive needs: No Hearing needs: No Vision needs: Yes Female Reproductive History Menstrual Age of Menarche: 10 Physical Exam Vital Signs: BMI result Body Mass Index 42.1 Const Other: Well-nourished well-developed very friendly female awake alert and oriented x3 in no acute distress Extrem Other: Bilateral lower extremity examination shows good capillary refill, no skin lesions noted, normal sensation light touch Right knee examination shows a minimal effusion, minimal crepitus with range of motion, tenderness along her medial collateral ligament, negative Nhan's test Results Reviewed Results Reviewed: MRI of the patient's right knee shows signal change within the medial collateral ligament consistent with a grade 1 sprain, no evidence of medial or lateral meniscus tearing, mild diffuse degenerative changes Assessment & Plan Assessment & Plan (1) MCL sprain of right knee: Code(s): S83.411A - Sprain of medial collateral ligament of right knee, initial encounter Category: Medical Plan Ms. Michael Ortiz presents with right knee pain due to a medial collateral ligament sprain. Because of the patient's symptoms of instability I did have her fitted for a knee brace. I do feel that the knee brace is a medical necessity to help prevent future falls. I also gave her a prescription to go to formal physical therapy. She will contact me prior to her follow-up appointment in 3 months should any questions or concerns arise. Feel free to call me at any time should questions regarding her orthopedic management arise. I spent 21 minutes in reviewing the patient's records and imaging studies, seeing the patient and documenting in the medical record. Orders: Orders PT Evaluation and Treatment Today S83.411A - Sprain of medial collateral ligament of right knee, initial encounter Coding Level of Care Code Est Pt Level 3 (44353) Complex EM visit Add On G2211 Diagnoses MCL sprain of right knee S83.411A
== END 2023-12-12 10:36 | disposition home or self-care (01) ==
PROVIDERS: PCP Internal Medicine; Visit Provider Orthopaedic Surgery
DX: S83.411A Sprain of medial collateral ligament of right knee, initial encounter (principal)
CPT/HCPCS: 99213; G2211

== ENCOUNTER → 2023-12-12 09:50 | Outpatient (BNVA) | payer OTHER, SELFPAY | PROVIDERS: PCP Internal Medicine; Visit Provider Orthopaedic Surgery | DX: S83.411A Sprain of medial collateral ligament of right knee, initial encounter (principal); X58.XXXA Exposure to other specified factors, initial encounter; Y93.9 Activity, unspecified; Y92.9 Unspecified place or not applicable; Y99.9 Unspecified external cause status | CPT/HCPCS: 99212 ==

== ENCOUNTER 2023-12-19 11:18 | Outpatient (AMB) | payer OTHER, SELFPAY ==
[2023-12-19 11:31] VITALS: BP 128/70; BMI 42.1
--- NOTE | 2023-12-19 11:31 | MHC.OFFVIS ---
Vital Signs 12/19/23 11:31 Height 5 ft 6 in Weight 261 lb BMI 42.1 BP 128/70 Intake Visit Reasons: US follow up Investment Executive Services: Investment Executive Present Information Interpreted: clinical only Electrical Experimental Mechanic: Electrical Experimental Mechanic Present Allergies No Known Allergies [No Known Allergies*] Allergy (Verified 12/19/23 11:32) Is last menstrual period known: Yes Last menstrual period: 12/16/23 Do you need a note to return to daycare/school/sports/work: No HPI HPI US follow up: Details: pt is here to review her pelvic u/s and was also supposed to have been scheduled for and annual w pap and prob emb. she has been bleeding irregularly since last visit. Her visit for annual exam and Pap is on the books for October of 2024. She is planning bariatric surgery and has an appointment with inspector water pollution control and to sign papers to have her surgery in January at [facility]. She is on a diet now trying to lose weight in prep for that. I reviewed the ultrasound with her which shows a thickened endometrium and given her irregular bleeding pattern it really would be best if she had an endometrial biopsy as I discussed with her previously. She is not prepared for that today but we need to get her in as soon as possible for her annual exam and Pap and endometrial biopsy in addition if there is no abnormality found then my recommendation would be to consider a Mirena IU S to help control her dysfunctional bleeding if there were abnormal cells found then we would have to do with that appropriately and refer.. She says she understands and agrees with this plan and I walked her to the front end ui developer so we could look a soon appointment for annual with exam and Pap and endometrial biopsy. [facility] Medical History Missed with demise before 20 completed weeks of gestation Missed period Encounter for routine screening for malformation using ultrasound Rosacea Physical exam DUB (dysfunctional uterine bleeding) Allergic rhinitis Morbid obesity with BMI of 40.0-44.9, adult Chronic diarrhea Surgical History History of bilateral tubal ligation History of Family History Mother Epilepsy Maternal Grandfather Cardiac arrest Father No problems noted. 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 Attending Dr: Lizy Read CNM Ordering Physician: Lizy Read CNM Date of Service: 11/28/23 Procedure(s): US pelvic and transvaginal Accession Number(s): [id number] cc: Lizy Read CNM; Bre Coronado MD~ EXAMINATION: US PELVIS CLINICAL INFORMATION: Abnormal bleeding. COMPARISON: OB ultrasound of August 12, 2021. TECHNIQUE: Ultrasound of the pelvis is performed using both transabdominal and transvaginal transducers along with Doppler. Transvaginal imaging is performed due to inadequate visualization transabdominally. FINDINGS: The uterus is anteverted and measures 12.2 x 4.0 x 7.8 cm. Small amount of free fluid seen anteriorly, possibly associated with a section scar, but difficult to confirm. Endometrial thickness is 13 mm, although visualization of endometrium as well as the body and fundus of uterus is limited due to positioning and bowel gas. No significant free fluid. Bilateral ovaries are unremarkable. Right ovary measures 2.7 x 1.4 x 1.6 cm, volume 3.3 mL. Left ovary measures 2.6 x 2.1 x 1.5 cm, volume of 4.1 mL. US/US pelvic and transvaginal IMPRESSION: 1. Endometrial thickness is 13 mm, although visualization of endometrium as well as the body and fundus of uterus is limited due to positioning and bowel gas. 2. Small amount of free fluid seen anteriorly, possibly associated with a section scar, but difficult to confirm. 3. Unremarkable bilateral ovaries. Electronically signed by: Rima St MD 12/05/2023 03:48 PM EDT RP Dictated By: Rima St MD Signed By: <Electronically signed by Rima St MD in OV> 12/05/23 1548 DD/ 1135 TD/TT: 11/28/23 1146 Security Operations Analyst: Assessment & Plan Assessment & Plan (1) DUB (dysfunctional uterine bleeding): Code(s): N93.8 - Other specified abnormal uterine and vaginal bleeding Category: Medical (2) Morbid obesity with BMI of 40.0-44.9, adult: Code(s): E66.01 - Morbid (severe) obesity due to excess calories; Z68.41 - Body mass index [BMI] 40.0-44.9, adult Category: Medical (3) History of 2 sections: Code(s): Z98.891 - History of uterine scar from previous surgery Category: Surgical Plan pt is here to review her pelvic u/s and was also supposed to have been scheduled for and annual w pap and prob emb. she has been bleeding irregularly since last visit. Her visit for annual exam and Pap is on the books for October of 2024. She is planning bariatric surgery and has an appointment with inspector water pollution control and to sign papers to have her surgery in January at [facility]. She is on a diet now trying to lose weight in prep for that. I reviewed the ultrasound with her which shows a thickened endometrium and given her irregular bleeding pattern it really would be best if she had an endometrial biopsy as I discussed with her previously. She is not prepared for that today but we need to get her in as soon as possible for her annual exam and Pap and endometrial biopsy in addition if there is no abnormality found then my recommendation would be to consider a Mirena IU S to help control her dysfunctional bleeding if there were abnormal cells found then we would have to do with that appropriately and refer.. She says she understands and agrees with this plan and I walked her to the front end ui developer so we could look a soon appointment for annual with exam and Pap and endometrial biopsy. Coding Level of Care Code Est Pt Level 3 (11411) Diagnoses DUB (dysfunctional uterine bleeding) N93.8 Morbid obesity with BMI of 40.0-44.9, adult E66.01; Z68.41 History of 2 sections Z98.891
== END 2023-12-19 12:26 | disposition home or self-care (01) ==
PROVIDERS: PCP Internal Medicine; Visit Provider Advanced Practice Midwife
DX: N93.8 Other specified abnormal uterine and vaginal bleeding (principal); E66.01 Morbid (severe) obesity due to excess calories; Z68.41 Body mass index [BMI] 40.0-44.9, adult; Z98.891 History of uterine scar from previous surgery
CPT/HCPCS: 99213

== ENCOUNTER → 2023-12-19 11:18 | Outpatient (BNVA) | payer OTHER, SELFPAY | PROVIDERS: PCP Internal Medicine; Visit Provider Advanced Practice Midwife | DX: E66.01 Morbid (severe) obesity due to excess calories (principal); N93.8 Other specified abnormal uterine and vaginal bleeding; Z98.891 History of uterine scar from previous surgery; Z68.41 Body mass index [BMI] 40.0-44.9, adult | CPT/HCPCS: 99212 ==

== ENCOUNTER 2024-01-17 10:34 | Outpatient (AMB) | payer OTHER, SELFPAY ==
[2024-01-17 10:35] VITALS: BP 126/80; BMI 41.8
--- NOTE | 2024-01-17 10:35 | MHC.PC.OV ---
Vital Signs 01/17/24 10:35 Height 5 ft 6 in Weight 259 lb BMI 41.8 BP 126/80 Blood Pressure Location Lt brachial Position Sitting Intake Visit Reasons: 6 month follow up Intake Note: Patient here for a 6 month follow up Health Plan Specialist Required: No Accompanied by: child, mother in law Allergies No Known Allergies [No Known Allergies*] Allergy (Verified 01/17/24 10:44) Medication List - Last Reconciled 01/17/24 by Bre Hinds MD benzocaine-menthol 15-2.6 mg (Cepacol Sore Throat (benzocaine-menthol)) 1 earnest mucous membrane Q2-4H PRN benzonatate 100 mg PO BID PRN cholecalciferol (vitamin D3) 25 mcg PO DAILY 90 days ibuprofen 800 mg PO Q8H PRN 30 days metronidazole 0.75% appl topical Tobacco use date assessed: 04/17/23 Dental Screening Dental Screen Date: 01/17/24 Did you have a dental visit in the last 12 months?: No Did you have a dental problem in the last 6 months where you did not have access to dental care?: No Was dental information given to patient?: Patient has dentist HPI HPI Comments History of Present Illness Details This is a 33-year-old female with morbid obesity, impaired glucose tolerance, and elevated TSH that comes today complaining of lumbar pain that occasionally radiates to the left leg and is aggravated by activity. No fever, bowel or bladder incontinence. She had an oxycodone that someone else gave her and relieved the pain which I suggested not to do that ever again. I will give her diclofenac for few days and refer her to pain management because she declined physical therapy. She is morbidly obese with a BMI of 41.8 and was advised to do diet and exercise. Had elevated fasting blood glucose that will be repeated and denies any polyuria, polydipsia or unintentional weight loss. Had an elevated TSH that will also be repeated. [facility] Medical History (Updated 01/17/24 @ 10:53 by Bre Hinds MD) Missed with demise before 20 completed weeks of gestation Missed period Encounter for routine screening for malformation using ultrasound Rosacea Physical exam DUB (dysfunctional uterine bleeding) Allergic rhinitis Morbid obesity with BMI of 40.0-44.9, adult Chronic diarrhea Surgical History History of bilateral tubal ligation History of Family History Mother Epilepsy Maternal Grandfather Cardiac arrest Father No problems noted. 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 Scotty Og, Katya Marley, Kody Ferrara and colleagues, with an educational yaniv from [employer]. Review of Systems Const All systems reviewed & are unremarkable except as noted in HPI and below Card Denies chest pain at rest, Denies chest pain with activity, Denies edema, Denies irregular heart rhythm, Denies claudication, Denies dyspnea, Denies dyspnea on exertion, Denies orthopnea, Denies paroxysmal nocturnal dyspnea and Denies slow heart rate Resp Denies cough, Denies dyspnea and Denies dyspnea on exertion GI Denies abdominal pain, Denies change in bowel habits, Denies excessive flatus, Denies nausea and Denies vomiting Musc Reports back pain, Denies atrophy, Denies deformity, Denies limited range of motion and Reports radiating pain into limb Physical exam (Primary Care) Vital Signs: Last Vital Signs BP 126/80 01/17/24 10:35 BMI result Body Mass Index 41.8 BMI Assessment/Plan discussion: High BMI High, discussed plan: lifestyle, weight reduction, dietary, physical activity and alcohol moderation Tobacco/Smoking Status: Tobacco use Status Tobacco use date assessed 04/17/23 01/17/24 10:40 Patient Tobacco Use Status Never used Tobacco 01/17/24 10:40 e-Cigarette/Vaping Use Never Used 01/17/24 10:40 Thrive Assessment: Date of Thrive Assessment Date Thrive assessed 04/17/23 01/17/24 10:40 Resp Effort & Inspection: normal respiratory effort Auscultation: clear to auscultation bilaterally Cardio Jugular venous distension: no JVD Rate: regular rate Rhythm: regular rhythm Heart sounds: S1 normal heart sound present and S2 normal heart sound present Back/Spine/Pelvis Thoracic/Lumbar Spine: thoracic spinal tenderness and lumbar spinal tenderness Extrem General: Yes full ROM Office Procedures Flu Questionnaire Does the patient have a severe egg allergy?: No Does the patient have severe life threatening allergies?: No Does the patient have a fever or illness today?: No Has the patient ever had Guillain-[place] Syndrome?: No Has the patient ever had any past reaction to a flu shot?: No Immunizations Fluarix Triv [id number] (PF) 45 mcg (15 mcg x 3)/0.5 mL IM syringe Performing Provider: Bre Hinds MD [facility] Administered by: CHANCE Moss on 01/17/24 10:52 Dose Route Admin Location Dispensed Lot Number Expiration Date NDC Digital Community Manager 0.5 mL IM Left Deltoid 0.5 mL [id number] 09/29/24 14746-368-64 [facility] V[facility] Given Date VIS Provided VIS Publication Date 01/17/24 Single Vaccine 20 Eligibility Eligibility Date Funding Source Not [facility] Eligible 01/17/24 Private Coding Level of Care Code Est Pt Level 4 (38896) Complex EM visit Add On G2211 Diagnoses Lumbar pain M54.50 Impaired glucose tolerance R73.02 Elevated TSH R79.89 Morbid obesity with BMI of 40.0-44.9, adult E66.01; Z68.41 Time Spent (min) 23 Assessment & Plan Assessment & Plan (1) Lumbar pain: Code(s): M54.50 - Low back pain, unspecified Category: Medical Plan: Referred to pain management. Start diclofenac as needed. (2) Impaired glucose tolerance: Code(s): R73.02 - Impaired glucose tolerance (oral) Category: Medical Plan: Repeat fasting blood glucose. (3) Elevated TSH: Code(s): R79.89 - Other specified abnormal findings of blood chemistry Category: Medical Plan: Repeat TSH. (4) Morbid obesity with BMI of 40.0-44.9, adult: Code(s): E66.01 - Morbid (severe) obesity due to excess calories; Z68.41 - Body mass index [BMI] 40.0-44.9, adult Category: Medical Plan: Advised to start diet and exercise. BMI goal is less than 30. Orders: Orders Thyroid Stimulating Hormone Today R79.89 - Other specified abnormal findings of blood chemistry Influenza [id number] Immunization Today Z23 - Encounter for immunization Free T4 (Free Thyroxine) Today R79.89 - Other specified abnormal findings of blood chemistry Referrals Pain Management Referral M54.50 - Low back pain, unspecified Medications: New diclofenac sodium 50 mg PO Q12H PRN 10 tabs 0RF pain 5 days
== END 2024-01-17 10:58 | disposition home or self-care (01) ==
PROVIDERS: PCP Internal Medicine; Visit Provider Internal Medicine
DX: M54.50 Low back pain, unspecified (principal); R73.02 Impaired glucose tolerance (oral); E66.813 Obesity, class 3; Z68.41 Body mass index [BMI] 40.0-44.9, adult; R79.89 Other specified abnormal findings of blood chemistry

== ENCOUNTER → 2024-01-17 10:34 | Outpatient (BNVA) | payer OTHER, SELFPAY | PROVIDERS: PCP Internal Medicine; Visit Provider Internal Medicine | DX: Z23 Encounter for immunization (principal); M54.50 Low back pain, unspecified; R73.02 Impaired glucose tolerance (oral); R79.89 Other specified abnormal findings of blood chemistry; E66.01 Morbid (severe) obesity due to excess calories; Z68.41 Body mass index [BMI] 40.0-44.9, adult; Z71.3 Dietary counseling and surveillance | CPT/HCPCS: 90471; 90656; 99212 ==

== ENCOUNTER 2024-03-06 07:49 | Outpatient (REF) | payer OTHER, SELFPAY ==
[2024-03-06 09:25] LABS: Hematocrit 36.2 % (37.0-47.0); Hemoglobin 11.4 g/dl (12.0-16.0); Mean Corpuscular HGB Conc 31.5 g/dl (31.0-35.0); Mean Corpuscular Hemoglobin 25.9 pg (27.0-33.0); Mean Corpuscular Volume 82.3 fL (80.0-98.0); Mean Platelet Volume 9.7 fL (9.4-12.3); Platelet Count 473 X10*3/uL (160-400); Red Cell Distribution Width 15.8 % (11.0-16.0); White Blood Count 9.4 X10*3/uL (4.8-10.8)
[2024-03-06 10:13] LABS: HCG Quantitative < 2 mIU/mL; TSH reflex Free T4 5.77 uIU/mL (0.32-4.0)
[2024-03-06 10:46] LABS: Free T4 (Free Thyroxine) 1.09 ng/dL (0.71-1.85)
[2024-03-06 18:09] LABS: CT PCR NOT DETECTED (Not Detect.); NG PCR NOT DETECTED (Not Detect.)
[2024-03-07 23:53] LABS: Prolactin 11.7 ng/mL
== END 2024-03-06 07:50 | disposition home or self-care (01) ==
LOC: HO.LNP 07:49
PROVIDERS: PCP Internal Medicine; Visit Provider Obstetrics & Gynecology
DX: N93.9 Abnormal uterine and vaginal bleeding, unspecified (principal)
CPT/HCPCS: 81025; 84146; 84439; 84443; 84702; 85027; 87491; 87591; 99212

== ENCOUNTER 2024-03-06 07:49 | Outpatient (AMB) | payer OTHER, SELFPAY ==
[2024-03-06 07:57] VITALS: BP 122/74; BMI 41.6
--- NOTE | 2024-03-06 07:57 | MHC.OFFVIS ---
Vital Signs 03/06/24 07:57 Height 5 ft 6 in Weight 257 lb 15.053 oz BMI 41.6 BP 122/74 Intake Visit Reasons: AUB/30 minutes Sole Polisher Required: Yes Sole Polisher Language: Food Service Attendant Services: Sole Polisher Present (in person) Sole Polisher Name: Karen FLETCHER Information Interpreted: non-clinical & clinical Safety Glass Installer: Safety Glass Installer Present (Karen FLETCHER) Accompanied by: Self / Same As Patient Allergies No Known Allergies [No Known Allergies*] Allergy (Verified 03/06/24 08:22) HPI Comments Details: The patient is presenting c/o irregular bleeding associated with passage of blood clots and abdominal cramping. it started few months ago and is getting worse no other associated symptoms. Last co testing was in 08/21 was negative 11/23 pelvic ultrasound showed the following: The uterus is anteverted and measures 12.2 x 4.0 x 7.8 cm. Small amount of free fluid seen anteriorly, possibly associated with a section scar, but difficult to confirm. Endometrial thickness is 13 mm, although visualization of endometrium as well as the body and fundus of uterus is limited due to positioning and bowel gas. No significant free fluid. Bilateral ovaries are unremarkable. Right ovary measures 2.7 x 1.4 x 1.6 cm, volume 3.3 mL. Left ovary measures 2.6 x 2.1 x 1.5 cm, volume of 4.1 mL. [facility] Medical History Missed with demise before 20 completed weeks of gestation Missed period Encounter for routine screening for malformation using ultrasound Rosacea Physical exam DUB (dysfunctional uterine bleeding) Allergic rhinitis Morbid obesity with BMI of 40.0-44.9, adult Chronic diarrhea Surgical History History of bilateral tubal ligation History of Family History Mother Epilepsy Maternal Grandfather Cardiac arrest Father No problems noted. 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 Current occupational exposures/hazards: No Sexual orientation: Straight/Heterosexual Gender identity: Female Cognitive needs: No Hearing needs: No Vision needs: Yes Female Reproductive History Menstrual Age of Menarche: 10 Date of last menstrual period: 02/15/24 control method: permanent sterilization Total pregnancies: 4 Full term: 3 Number of Living Children: 3 Ab spontaneous: 1 Date of last pap smear: 08/22/21 Review of Systems Const All systems reviewed & are unremarkable except as noted in HPI and below Physical Exam Vital Signs: Last Vital Signs BP 122/74 03/06/24 07:57 BMI result Body Mass Index 41.6 Chest Chest palpation & inspection: normal inspection of the chest and normal palpation of entire chest wall Breast/axilla inspection: normal inspection of the breasts Breast/axilla palpation: normal palpation of the breasts General: Yes no CVA tenderness External Female Exam: normal external appearance and normal appearance of the urethra Speculum Exam - Vagina: normal appearance of the vagina, normal palpation, no lesions and no masses Speculum Exam - Cervix: normal appearance of the cervix, normal palpation, no lesions, no masses and nontender Bimanual exam- vagina & uterus: normal bimanual exam, normal palpation, uterine size normal, normal palpation, uterine shape normal, No Cervical tenderness present and non-tender Bimanual Exam- Adnexa, other: normal adnexae Back/Spine/Pelvis Back: no CVA tenderness Results AMB Test Urine AMB Test Urine Negative Last Edit by Karen Barbosa CMA on 03/06/24 08:30 Assessment & Plan Assessment & Plan (1) Abnormal uterine bleeding: Code(s): N93.9 - Abnormal uterine and vaginal bleeding, unspecified Category: Medical Plan: GC and chlamydia taken CBC, TSH, prolactin, HCG, ordered. Discussed with the patient the different causes of abnormal bleeding including thyroid disorders, uterine and ovarian pathology, endometrial hyperplasia, carcinoma and other potential causes. Discussed with the patient the work up including CBC (to r/o anemia), TSH, prolactin, pelvic Ultrasound, endometrial biopsy to r/o endometrial pathology. All questions answered and the patient verbalized understanding. Instructed the patient to schedule an appointment for an endometrial biopsy in 2 weeks. Orders: Orders AMB HCG Urine Test Today Z32.02 - Encounter for test, result negative Coding Level of Care Code Est Pt Level 3 (24893) Diagnoses Abnormal uterine bleeding N93.9
== END 2024-03-06 08:44 | disposition home or self-care (01) ==
PROVIDERS: PCP Internal Medicine; Visit Provider Obstetrics & Gynecology
DX: Z32.02 Encounter for pregnancy test, result negative (principal); N93.9 Abnormal uterine and vaginal bleeding, unspecified
CPT/HCPCS: 99213

== ENCOUNTER 2024-03-06 08:46 | Outpatient (REF) | payer OTHER, SELFPAY | END 2024-03-06 08:47 | disposition home or self-care (01) | LOC: HO.LAB 08:46 | PROVIDERS: PCP Internal Medicine; Visit Provider Obstetrics & Gynecology | DX: Z13.89 Encounter for screening for other disorder (principal) ==

== ENCOUNTER 2024-03-12 11:04 | Outpatient (AMB) | payer OTHER, SELFPAY ==
[2024-03-12 11:06] VITALS: BMI 41.5
--- NOTE | 2024-03-12 11:06 | A.OFFVIS_ITS ---
Vital Signs 03/12/24 11:06 Height 5 ft 6 in Weight 257 lb BMI 41.5 Intake Visit Reasons: Low back pain radiating down leg Intake Note: Paige is a 33 year old female who presents with complaints of progressively worsening low back pain which radiates down her right leg. She describes her pain as sharp in nature. Her pain has gotten worse over the last few years in spite of continued non operative treatments. The patient states that she has had worsening pain in her low back since undergoing an epidural injection during her 3rd section. She reports intermittent weakness in her right leg as well. She has gone to physical therapy which aggravated her pain. She has failed the last 6 weeks of conservative treatment which has included physical therapy exercises, Tylenol and anti-inflammatory medicines. Construction Equipment Operator Required: Yes Construction Equipment Operator Language: Parts Cataloger Services: Construction Equipment Operator Present Construction Equipment Operator Name: CHANCE Marquis/REBECA Allergies No Known Allergies [No Known Allergies*] Allergy (Verified 03/12/24 11:07) Medication List - Last Reconciled 03/12/24 by Maulik Bales MD cholecalciferol (vitamin D3) 25 mcg PO DAILY 90 days diclofenac sodium 50 mg PO Q12H PRN 5 days ibuprofen 800 mg PO Q8H PRN 30 days levothyroxine 25 mcg PO DAILY 90 days PFSH Medical History Missed with demise before 20 completed weeks of gestation Missed period Encounter for routine screening for malformation using ultrasound Rosacea Physical exam DUB (dysfunctional uterine bleeding) Allergic rhinitis Morbid obesity with BMI of 40.0-44.9, adult Chronic diarrhea Surgical History History of bilateral tubal ligation History of Family History Mother Epilepsy Maternal Grandfather Cardiac arrest Father No problems noted. 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 [employer] Current occupational exposures/hazards: No Sexual orientation: Straight/Heterosexual Gender identity: Female Cognitive needs: No Hearing needs: No Vision needs: Yes Female Reproductive History Menstrual Age of Menarche: 10 Physical Exam Vital Signs: BMI result Body Mass Index 41.5 Const Other: Well-nourished well-developed very friendly female awake alert and oriented x3 in no acute distress Back/Spine/Pelvis Other: Low back examination shows right-sided paraspinal muscle tenderness, pain with range of motion, positive straight leg raise test on the right at 70 degrees, 4/5 strength with testing of her right hip flexors and knee extensors when compared to 5/5 strength on her left side Assessment & Plan Assessment & Plan (1) Low back pain radiating down leg: Code(s): M54.50 - Low back pain, unspecified; M79.606 - Pain in leg, unspecified Category: Medical Plan Paige presents with progressively worsening low back pain which radiates down her right leg as well as associated right leg weakness most likely due to lumbar stenosis versus a disc herniation. Thus, I will send the patient for an MRI of her lumbar spine for further evaluation. I will see her back once the MRI is completed to discuss the findings. She will call me prior to that time should her symptoms worsen in any way. Feel free to call me at any time should questions regarding her orthopedic management arise. I spent 21 minutes in reviewing the patient's records and imaging studies, seeing the patient and documenting in the medical record. Orders: Orders MR lumbar spine wo con Today M54.50 - Low back pain, unspecified, M79.606 - Pain in leg, unspecified Coding Level of Care Code Est Pt Level 3 (96049) Complex EM visit Add On G2211 Diagnoses Low back pain radiating down leg M54.50; M79.606
== END 2024-03-12 11:36 | disposition home or self-care (01) ==
PROVIDERS: PCP Internal Medicine; Visit Provider Orthopaedic Surgery
DX: M54.50 Low back pain, unspecified (principal); M79.606 Pain in leg, unspecified
CPT/HCPCS: 99213; G2211

== ENCOUNTER → 2024-03-12 11:04 | Outpatient (BNVA) | payer OTHER, SELFPAY | PROVIDERS: PCP Internal Medicine; Visit Provider Orthopaedic Surgery | DX: M54.50 Low back pain, unspecified (principal); M79.604 Pain in right leg | CPT/HCPCS: 99212 ==

== ENCOUNTER 2024-04-10 10:52 | Outpatient (REF) | payer OTHER, SELFPAY | END 2024-04-10 10:53 | disposition home or self-care (01) | LOC: HO.LNP 10:52 | PROVIDERS: PCP Internal Medicine; Visit Provider Obstetrics & Gynecology | DX: N93.9 Abnormal uterine and vaginal bleeding, unspecified (principal); Z13.9 Encounter for screening, unspecified | CPT/HCPCS: 58100; 81025; 88305 ==

== ENCOUNTER 2024-04-10 10:52 | Outpatient (AMB) | payer OTHER, SELFPAY ==
--- NOTE | 2024-04-10 10:55 | A.OFFVIS_ITS ---
Intake Visit Reasons: EMB Compliance Representative Dealer Required: Yes Compliance Representative Dealer Language: Rn Radiation Oncology Services: Compliance Representative Dealer Present (in person) Compliance Representative Dealer Name: Karen FLETCHER Information Interpreted: non-clinical & clinical Senior Bi Architect: Senior Bi Architect Present (Karen FLETCHER) Accompanied by: Self / Same As Patient Allergies No Known Allergies [No Known Allergies*] Allergy (Verified 04/10/24 11:09) Is last menstrual period known: Yes HPI Comments Details: Presenting for [facility] Medical History Missed with demise before 20 completed weeks of gestation Missed period Encounter for routine screening for malformation using ultrasound Rosacea Physical exam DUB (dysfunctional uterine bleeding) Allergic rhinitis Morbid obesity with BMI of 40.0-44.9, adult Chronic diarrhea Surgical History History of bilateral tubal ligation History of Family History Mother Epilepsy Maternal Grandfather Cardiac arrest Father No problems noted. 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 hysteroscopy D&C) & the risks were discussed with the patient including but not limited: pain, uterine perforation, bleeding, infection, possible injury to bladder, bowel, ureter, possible need for blood transfusion with all its possible risks. The patient verbalized understanding all questions answered and signed consent. Urine test done in the office was negative The patient was placed into the dorsal lithotomy position; a speculum was inserted in the vagina. Using aseptic technique for the procedure, the cervix was cleansed with Betadine. The anterior lip of the cervix was grasped with a single tooth tenaculum. The uterus was sounded to 7 cm with a 4 mm Pipelle was used. Tissues samples were obtained and placed in formalin, in a patient labeled container and sent to the pathology department. At the end of the procedure, there was minimal bleeding noted The patient tolerated the procedure well and was discharged in good condition with the following instructions: Nothing in the vagina until the bleeding stops. No sex until the bleeding stops, to call if any of the following occurs: fever (>100.4), flu-like symptoms, abdominal pain, heavy bleeding, four smelling vaginal discharge. The patient was instructed to schedule a Follow up appointment in 2 weeks to discuss pathology results of the biopsy and treatment options. This note was generated with a voice recognition program. Some errors may have been overlooked during the review of this note. Sometimes these errors may affect the content or meaning of a given sentence. 24557-Qvblnfylery Biopsy Results AMB Test Urine AMB Test Urine Negative Last Edit by Karen Barbosa CMA on 11:10 Assessment & Plan Assessment & Plan (1) Abnormal uterine bleeding: Code(s): N93.9 - Abnormal uterine and vaginal bleeding, unspecified Category: Medical Plan: EMB done, see procedure Orders: Orders AMB HCG Urine Test Today Z32.02 - Encounter for test, result negative AMB Endometrial Biopsy Today N93.9 - Abnormal uterine and vaginal bleeding, unspecified Coding Level of Care Code Procedure Only Diagnoses Abnormal uterine bleeding N93.9 CPT Codes Endometrial Biopsy - CPT: 97804-Pctdynnnxsf Biopsy ([id number])
== END 2024-04-10 11:32 | disposition home or self-care (01) ==
PROVIDERS: PCP Internal Medicine; Visit Provider Obstetrics & Gynecology
DX: N93.9 Abnormal uterine and vaginal bleeding, unspecified (principal); Z32.02 Encounter for pregnancy test, result negative
CPT/HCPCS: 58100

== ENCOUNTER → 2024-04-12 10:40 | Outpatient (BNV) | payer OTHER, SELFPAY | PROVIDERS: PCP Internal Medicine; Visit Provider Radiology Diagnostic Radiology | DX: M54.50 Low back pain, unspecified (principal) | CPT/HCPCS: 72148 ==

== ENCOUNTER 2024-04-12 10:44 | Outpatient (REF) | payer OTHER, SELFPAY ==
--- NOTE | ~2024-04-12 | MR_ITS ---
EXAMINATION: MR LUMBAR SPINE WITHOUT CONTRAST CLINICAL INFORMATION: Low back pain. COMPARISON: None available. TECHNIQUE: MRI of the lumbar spine was obtained using routine sequences without contrast. FINDINGS: Submitted for interpretation on April 15, 2024. Last rib-bearing vertebra labeled T12. No bone marrow STIR signal abnormality. The alignment is normal. The conus medullaris ends at superior endplate of L1 with normal signal. T12-L1: No disc herniation. No neuroforamina stenosis. L1-2: No disc herniation. No neuroforamina stenosis. L2-3: No disc herniation. No neuroforamina stenosis. L3-4: Broad-based disc bulging. No central spinal canal or neuroforamina stenosis C4-5: Broad-based disc bulging. Facet joint atrophy. No central spinal canal or neuroforamina stenosis. L5-S1: Broad-based disc bulging. Facet joint hypertrophy. Reduced AP diameter of the thecal sac. No compression upon neural elements. No prevertebral compartment hematoma, mass or fluid collection. MR/MR lumbar spine wo con IMPRESSION: No acute fracture or listhesis or compression upon neural elements. Spondylosis, mild, L3-4 to L5-S1. Electronically signed by: Juan A Morales MD 04/15/2024 08:55 AM EST
== END 2024-04-12 10:45 | disposition home or self-care (01) ==
LOC: HO.MRI 10:44
PROVIDERS: PCP Internal Medicine; Visit Provider Orthopaedic Surgery
DX: M54.50 Low back pain, unspecified (principal); M79.606 Pain in leg, unspecified
CPT/HCPCS: 72148

== ENCOUNTER 2024-04-21 10:14 | Outpatient (AMB) | payer OTHER, SELFPAY ==
[2024-04-21 10:18] VITALS: BP 114/86; PULSE 84; O2SAT 98; BMI 43.0
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
== END 2024-04-21 11:10 | disposition home or self-care (01) ==
PROVIDERS: PCP Internal Medicine; Visit Provider Physician Assistant
DX: E03.9 Hypothyroidism, unspecified (principal); R73.02 Impaired glucose tolerance (oral); E66.813 Obesity, class 3; Z68.41 Body mass index [BMI] 40.0-44.9, adult; K21.9 Gastro-esophageal reflux disease without esophagitis; M47.816 Spondylosis without myelopathy or radiculopathy, lumbar region; M89.8X1 Other specified disorders of bone, shoulder

== ENCOUNTER → 2024-04-21 10:14 | Outpatient (BNVA) | payer OTHER, SELFPAY | PROVIDERS: PCP Internal Medicine; Visit Provider Physician Assistant | DX: E03.9 Hypothyroidism, unspecified (principal); R73.02 Impaired glucose tolerance (oral); M47.816 Spondylosis without myelopathy or radiculopathy, lumbar region; E66.813 Obesity, class 3; M89.8X1 Other specified disorders of bone, shoulder; K21.9 Gastro-esophageal reflux disease without esophagitis | CPT/HCPCS: 96127; 99212 ==

== ENCOUNTER 2024-05-01 11:01 | Outpatient (AMB) | payer OTHER, SELFPAY ==
--- NOTE | 2024-05-01 11:05 | MHC.OFFVIS ---
Intake Visit Reasons: EMB results Mobility Engineer: Mobility Engineer Present (Vanessa) Accompanied by: Family/Other Allergies No Known Allergies [No Known Allergies*] Allergy (Verified 05/01/24 11:14) HPI Comments Details: The patient is presenting for follow-up to discuss the results of her abnormal uterine bleeding workup and options of treatment. The following workup was done.: H&H= 11.4/36.2 TSH elevated at 5.77, free T4 within normal hCG, prolactin, GC and chlamydia were negative. Endometrial biopsy pathology showed the following: Mildly disordered proliferative endometrium; focal pseudodecidual change; no atypia or hyperplasia identified Co testing was done in 08/21 was negative. Pelvic ultrasound showed the following: IMPRESSION: 1. Endometrial thickness is 13 mm, although visualization of endometrium as well as the body and fundus of uterus is limited due to positioning and bowel gas. 2. Small amount of free fluid seen anteriorly, possibly associated with a section scar, but difficult to confirm. 3. Unremarkable bilateral ovaries. [facility] Medical History Missed with demise before 20 completed weeks of gestation Missed period Encounter for routine screening for malformation using ultrasound Rosacea Physical exam DUB (dysfunctional uterine bleeding) Allergic rhinitis Chronic diarrhea Surgical History History of bilateral tubal ligation History of Family History Mother Epilepsy Maternal Grandfather Cardiac arrest Father No problems noted. 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 Current occupational exposures/hazards: No Sexual orientation: Straight/Heterosexual Gender identity: Female Cognitive needs: No Hearing needs: No Vision needs: Yes Female Reproductive History Menstrual Age of Menarche: 10 Review of Systems Const All systems reviewed & are unremarkable except as noted in HPI and below Reports as per HPI and Reports no additional complaints GI Reports no additional complaints Reports no additional complaints Assessment & Plan Assessment & Plan (1) Abnormal uterine bleeding: Code(s): N93.9 - Abnormal uterine and vaginal bleeding, unspecified Category: Medical Plan: Discussed with the patient the results of the work up done and options of treatment including Lysteda, control pills, Mirena IUD, endometrial ablation and hysterectomy. All pros, cons, risks and benefits if each option was discussed with the patient and the patient decided to go ahead with Mirena IUD so a more detailed discussion about it was conducted including mechanism of action, risks (uterine perforation, infection, injury to bladder, bowel, displacement, and others) benefits (hypo menorrhea, amenorrhea, ...). GC/CT were taken and were negative and the patient was instructed to schedule Mirena IUD insertion on day 1-5 of next cycle . All questions answered, the patient verbalized understanding (2) Elevated TSH: Code(s): R79.89 - Other specified abnormal findings of blood chemistry Category: Medical Plan: The patient was seen by her PCP regarding elevated TSH with normal free T4 and was started on levothyroxine Coding Level of Care Code Est Pt Level 3 (93174) Diagnoses Abnormal uterine bleeding N93.9 Elevated TSH R79.89
--- OUTSIDE RECORDS SUMMARY | 2024-05-01 14:56 | XMS_ITS | Encounter Summary ---
Author Organization [facility] Address [address] [place] [address] Care Team Providers Care Furnace Combination Analyst Name Role Phone Unavailable Primary Care Provider Unavailabl e Encounter Details Date Type Department Care Team (Latest Contact Info) Description 06/12/2018 Abstract [facility] CONVERSIONS Dental, Provider, DDS Social History Tobacco Use Types Packs/Day Years Used Date Smoking Tobacco: Never Assessed Comments Unknown Sex and Gender Information Value Date Recorded Sex Assigned at Female 01/30/2022 10:34 AM EDT Legal Sex Female 10:34 AM EDT Gender Identity Female 01/30/2022 10:34 AM EDT Sexual Orientation Straight 01/30/2022 10 :34 AM EDT documented as of this encounter Plan of Treatment Not on file documented as of this encounter Visit Diagnoses Not on filedocumented in this encounter
--- OUTSIDE RECORDS SUMMARY | 2024-05-01 14:56 | XMS_ITS | Clinical Summary ---
Author Organization [email or web address] Address [address] [place] [address] [address] [place] [address] Care Team Providers Care Calender Roll Operator Name Role Phone Unavailable Primary Care Provider Unavailabl e Medications ketoconazole (NIZOral) 2 % cream Apply topically in the morning. Active triamcinolone (Kenalog) 0.1 % cream 3 Active ibuprofen 800 MG tablet 3 Active Active Problems No known active problems Social History Tobacco Use Types Packs/Day Years Used Date Smoking Tobacco: Never Tobacco Cessation:Counseling Given: Not Answered Comments Unknown Sex and Gender Information Value Date Recorded Sex Assigned at Female 01/30/2022 10:34 AM EDT Legal Sex Female 10:34 AM EDT Gender Identity Female 01/30/2022 10:34 AM EDT Sexual Orientation Straight 01/30/2022 10 :34 AM EDT Plan of Treatment Health Maintenance Due Date Last Done Comments Depression Screening 1988 HIV Screening 1988 Lipid Panel 1988 SDOH Screening 1988 Alcohol/Substance Use Screening 2000 Tobacco Screening 2000 Family Planning (PISQ) 06/17/2003 Hepatitis C Screening 2006 DTaP/Tdap/Td Vaccines (1 - Tdap) 06/17/2007 Hepatitis B Vaccines (1 of 3 - 19+ 3-dose series) 06/17/2007 Pap Smear 2009 Cervical Cancer Screening 2018 HPV/Cotest 2018 COVID-19 Vaccine ( season) 2023 03/08/2021, 08/17/2020, 07/20/2020 Influenza Vaccine (#1) 2023 2, 03/08/2021, 03/08/2021, Additional history exists Zoster Vaccines (1 of 2) 2038 RSV Patients and Patients Aged 60 years or older (1 - 1-dose 75+ series) 06/17/2063 HIB Vaccines Aged Out No longer eligi ble based on patient's age to complete this topic HPV Vaccines Aged Out No longer eligi ble based on patient's age to complete this topic Hepatitis A Vaccines Aged Out No long er eligible based on patient's age to complete this topic IPV Vaccines Aged Out No longer eligi ble based on patient's age to complete this topic Meningococcal Vaccine Aged Out No maury annika eligible based on patient's age to complete this topic Pneumococcal Vaccine: Pediatrics (0 to 5 Years) and At-Risk Patients (6 to 49) Years) Aged Out No longer eligible based on patient's age to complete this topic RSV under 20 months Aged Out No longe r eligible based on patient's age to complete this topic Rotavirus Vaccines Aged Out No longer eligible based on patient's age to complete this topic Insurance STANDARD 2Fl [place] [id number]
--- OUTSIDE RECORDS SUMMARY | 2024-05-01 14:56 | XMS_ITS | Clinical Summary ---
Author Organization [address] [place] [address] [place] [phone] Phone Care Team Providers Care Mangle Catcher Name Role Phone Jacob Stubbs MD Primary Care Provider [phone] Allergies No known active allergies Medications Medication Sig Dispensed Refills Start Date End Date Status levothyroxine (SYNTHROID, LEVOTHROID) 25 mcg tablet Take by mouth 1 (one) time each day before breakfast. Active ibuprofen (ADVIL,MOTRIN) 800 mg tablet Take 1 Tablet by mouth every 8 hours as needed. 04/21/2024 Discontinued ferrous sulfate 324 mg (65 mg elemental iron) EC tablet TAKE 1 TABLET BY MOUTH EVERY DAY 90 tablet 1 02/04/2024 04/21/2024 Discontinued levothyroxine (SYNTHROID, LEVOTHROID) 100 mcg tablet Take 25 mcg by mouth 1 (one) time each day before breakfast. 04/21/2024 Discontinued Active Problems Problem Noted Date Diagnosed Date Gastroesophageal reflux disease 02/18/2024 Hiatal hernia 02/18/2024 Class 3 severe obesity with body mass index (BMI) of 40.0 to 44.9 in adult 01/01/2024 Encounters Date Type Department Care Team Description 02/18/2024 11:00 AM EST Office Visit Bariatric Surgery - [address] [phone] Cleo Ponce PA Class 3 severe obesity due to excess calories without serious comorbidity with body mass index (BMI) of 40.0 to 44.9 in adult ([facility]) (Primary Dx); Gastroesophageal reflux disease, unspecified whether esophagitis present; Hiatal hernia 02/07/2024 10:30 AM EST Nutrition Bariatric Surgery - [place] [address] [phone] Class 3 severe obesity with body mass index (BMI) of 40.0 to 44.9 in adult, unspecified obesity type, unspecified whether serious comorbidity present ([facility]) (Primary Dx) from Last 3 Months Surgical History Surgery Date Site/Laterality Comments SECTION PROCEDURE: HISTORICAL DELIVERY Medical History Medical History Date Comments Chronic diarrhea DX:Chronic diar vangie Obesity DX:Obesity Hyperlipidemia DX:Hyperlipidemi a Low back pain DX:Low back pain Hypothyroidism Family History Medical History Relation Name Comments Other: cardiac arrest Father Other: epilepsy Mother Relation Name Status Comments Father Mother Social History Tobacco Use Types Packs/Day Years Used Date Smoking Tobacco: Never Smokeless Tobacco: Never Tobacco Cessation:Counseling Given: Not Answered Alcohol Use Standard Drinks/Week Comments Yes 0 (1 standard drink = 0.6 oz pur e alcohol) Sex and Gender Information Value Date Recorded Sex Assigned at Not on file Gender Identity Not on file Sexual Orientation Not on file Job Start Date Occupation Industry Not on file Not on file Not on file Obstetrics History Last Filed Vital Signs Vital Sign Reading Time Taken Comments Blood Pressure 127/85 02/18/2024 10:52 AM EST Pulse 85 02/18/2024 10:52 AM EST Temperature - - Respiratory Rate - - Oxygen Saturation - - Inhaled Oxygen Concentration - - Weight 121 kg (266 lb) 04/21/2024 12:00 PM EST Height 167.6 cm (5' 6 ) 04/21/2024 12:00 PM EST Body Mass Index 42.93 04/21/2024 12:00 PM EST Plan of Treatment Upcoming Encounters Date Type Department Care Team (Late st Contact Info) Description 05/07/2024 10:00 AM EST Pre-Admission Testing [facility] Pre-Admission Testing [address] [place] [address] 05/07/2024 1:45 PM EST Consult Bariatric Surgery [facility] [address] [phone] Anne Dw[place] MD [address] [phone] 05/22/2024 11:00 AM EST Hospital Encounter [facility] Main OR [address] [place] [phone] Anne Dw[place] MD [address] [phone] 05/22/2024 11:00 AM EST - 05/22/2024 2:[address] [facility] Main OR [address] [place] [phone] Anne [place] MD [address] [phone] DAVIN[facility] GASTR[facility] BYPASS [[id number] (CPT??)] 06/05/2024 10:30 AM EST Office Visit Bariatric Surgery - [place] [address] [phone] Anne Dw[place] MD [address] [phone] 06/19/2024 12:30 PM EDT Telemedicine Bariatric Surgery [facility] [address] [phone] Beata Gamez, KIMBERLYN [address] [phone] 07/14/2024 10:30 AM EDT Office Visit Bariatric Surgery [facility] [address] [phone] Anne Dw[place] MD [address] [phone] Scheduled Procedures Name Priority Associated Diagnoses Date/Ti me BYPASS GASTRIC ROBOT Class 3 severe obesity due to excess calories without serious comorbidity with body mass index (BMI) of 40.0 to 44.9 in adult ([facility]) Gastroesophageal reflux disease, unspecified whether esophagitis present Hiatal hernia 05/22/2024 11:00 AM EST REPAIR HERNIA HIATAL ROBOT Class 3 severe obesity due to excess calories without serious comorbidity with body mass index (BMI) of 40.0 to 44.9 in adult ([facility]) Gastroesophageal reflux disease, unspecified whether esophagitis present Hiatal hernia 05/22/2024 11:00 AM EST Health Maintenance Due Date Last Done Comments DTaP,Tdap,and Td Vaccines (1 - Tdap) 06/17/2007 Hepatitis B Vaccines (1 of 3 - 19+ 3-dose series) 06/17/2007 Cervical Cancer Screening: Pap Smear 2009 Depression Screening 10/26/2023 HIV Screening 10/26/2023 Hepatitis C Screening 10/26/2023 Social Influencers of Health Screening 10/26/2023 COVID-19 Vaccine () 12/02/2023 03/08/2021, 08/17/2020, 07/20/2020 Cholesterol Screening (Lipid Panel) 06/13/2028 06/14/2023 Influenza Vaccine Completed 01/17/2024, , 03/08/2021, Additional history exists HIB Vaccines Aged Out No longer eligi [...] on patient's age to complete this topic MMR Vaccines Aged Out No longer eligi ble based on patient's age to complete this topic Meningococcal ACWY Vaccine Aged Out N o longer eligible based on patient's age to complete this topic Pneumococcal Vaccine: Pediatrics (0 to 5 Years) and At-Risk Patients (6 to 64 Years) Aged Out No longer eligible based on patient's age to complete this topic RSV Immunization Patients Under 20 months Aged Out No longer eligible based on patient's age to complete this topic Varicella Vaccines Aged Out No longer eligible based on patient's age to complete this topic Procedures Procedure Name Priority Date/Time Associated Diagnosis Comments LIPID PANEL Routine 06/14/2023 from Last 3 Months or Most Recently Relevant to Health Maintenance Results * (ABNORMAL) Lipid panel (06/14/2023) LDL/HDL Ratio 4 0 - 4 Triglycerides 263(A) 0 - 150 mg/dL Cholesterol 173 0 - 200 mg/dL HDL 40 40 mg/dL LDL Cholesterol 81 0 - 100 mg/dL Blood Venous blood specimen / Unknown Historical Provider LAB BLOOD ORDERAB LES from Last 3 Months or Most Recently Relevant to Health Maintenance Care Teams Mangle Catcher Relationship Specialty Start Date End Date Jacob Stubbs MD [address] [place] [address] Dr [address] LUBNA Fishman PCP - General Internal Medicine 02/06/24
== END 2024-05-01 11:36 | disposition home or self-care (01) ==
PROVIDERS: PCP Internal Medicine; Visit Provider Obstetrics & Gynecology
DX: N93.9 Abnormal uterine and vaginal bleeding, unspecified (principal); R79.89 Other specified abnormal findings of blood chemistry
CPT/HCPCS: 99213

== ENCOUNTER → 2024-05-01 11:01 | Outpatient (BNVA) | payer OTHER, SELFPAY | PROVIDERS: PCP Internal Medicine; Visit Provider Obstetrics & Gynecology | DX: N93.9 Abnormal uterine and vaginal bleeding, unspecified (principal); R79.89 Other specified abnormal findings of blood chemistry | CPT/HCPCS: 99212 ==

== ENCOUNTER 2024-05-15 08:10 | Outpatient (AMB) | payer OTHER, SELFPAY ==
--- NOTE | 2024-05-15 08:16 | A.OFFVIS_ITS ---
Vital Signs 05/15/24 08:17 Height 5 ft 6 in Weight 266 lb 6 oz BMI 43.0 Intake Visit Reasons: OV- Lumbar Spine MRI Review Intake Note: Paige is a 33 year old female who presents today for a lumbar spine MRI review. The patient states that her low back pain has continued since her last visit. Most of the pain is along the right side of her low back. She has tried Tylenol and anti-inflammatory medicines as well as muscle relaxants which gave her minimal relief. The patient denies any weakness. Final Armature Tester Required: No Allergies No Known Allergies [No Known Allergies*] Allergy (Verified 05/15/24 08:17) Medication List - Last Reconciled 05/15/24 by Maulik Bales MD baclofen 10 mg PO BID 15 days cholecalciferol (vitamin D3) 25 mcg PO DAILY 90 days diclofenac sodium 50 mg PO Q12H PRN 5 days ibuprofen 800 mg PO Q8H PRN 30 days ketoconazole 2% 1 appl topical levothyroxine 25 mcg PO DAILY 90 days omeprazole 20 mg PO DAILY 30 days [facility] Medical History Missed with demise before 20 completed weeks of gestation Missed period Encounter for routine screening for malformation using ultrasound Rosacea Physical exam DUB (dysfunctional uterine bleeding) Allergic rhinitis Chronic diarrhea Surgical History History of bilateral tubal ligation History of Family History Mother Epilepsy Maternal Grandfather Cardiac arrest Father No problems noted. Social History Household Members: Children Both parents involved: Yes Caregiver staying overnight: No Housing: Apartment Are you a primary director of home care hospice to a significant other at home: No Do you presently have visiting nurse or other home services: No 75 years or older and lives alone: No Alcohol intake: current Alcohol intake frequency: holidays/special occasions only Alcohol type: wine Patient Tobacco Use Status: Never used Tobacco e-Cigarette/Vaping Use: Never Used Second Hand Smoke Exposure: No Agree to transfusion: Yes service: No Current occupational status: employed Current occupation: [employer] Current occupational exposures/hazards: No Sexual orientation: Straight/Heterosexual Gender identity: Female Cognitive needs: No Hearing needs: No Vision needs: Yes Female Reproductive History Menstrual Age of Menarche: 10 Physical Exam Vital Signs: BMI result Body Mass Index 43.0 Back/Spine/Pelvis Other: Low back examination shows right-sided paraspinal muscle tenderness as well as tenderness over her right sacroiliac joint, no overlying skin lesions, positive straight leg raise test on the right at 70 degrees Results Reviewed Results Reviewed: MRI of the patient's lumbar spine shows mild diffuse degenerative disc disease, no acute bony abnormalities Assessment & Plan Assessment & Plan (1) Low back pain radiating down leg: Code(s): M54.50 - Low back pain, unspecified; M79.606 - Pain in leg, unspecified Category: Medical Plan Paige presents with low back pain which radiates down her right leg of unclear etiology. The patient's symptoms may be coming from her right sacroiliac joint. Thus, I will have her evaluated in our pain management department. She will contact me prior to that appointment should her symptoms worsen in any way. Feel free to call me at any time should questions regarding her orthopedic management arise. I spent 21 minutes in reviewing the patient's records and imaging studies, seeing the patient and documenting in the medical record. Orders: Referrals Pain Management Referral M54.50 - Low back pain, unspecified, M79.606 - Pain in leg, unspecified Coding Level of Care Code Est Pt Level 3 (60390) Complex EM visit Add On G2211 Diagnoses Low back pain radiating down leg M54.50; M79.606
--- OUTSIDE RECORDS SUMMARY | 2024-05-15 08:16 | XMS_ITS | Clinical Summary ---
Author Organization 175 [facility] Address [address] [place] [address] Phone Care Team Providers Care Mirror Fabrication Supervisor Name Role Phone Niall Gonsalves Primary Care Provider [phone] Allergies No known active allergies Medications levothyroxine (SYNTHROID, LEVOTHROID) 25 mcg tablet Take by mouth 1 (one) time each day before breakfast. Active pantoprazole (PROTONIX) 40 mg EC tablet Take 1 tablet (40 mg total) by mouth 1 (one) time each day before breakfast. Do not crush, chew, or split. 30 each 2 5 025 Active acetaminophen (TYLENOL) 500 mg tablet Take 2 tablets (1,000 mg total) by mouth every 8 (eight) hours. 30 each 5 025 Active polyethylene glycol (MIRALAX) 17 gram packet Take 17 g by mouth 1 (one) time each day. 510 g 5 025 Active wheat dextrin 3 gram/3.5 gram powder in packet Take 1 packet by mouth 1 (one) time each day. 30 packet 5 Active simethicone (MYLICON) 80 mg chewable tablet Chew 1 tablet (80 mg total) every 6 (six) hours if needed for flatulence. 30 tablet 5 Active ursodioL (ACTIGALL) 300 mg capsule Take 1 capsule (300 mg total) by mouth 2 (two) times a day. 60 each 5 5 025 Active ibuprofen (ADVIL,MOTRIN) 800 mg tablet Take 1 Tablet by mouth every 8 hours as needed. 025 Discontinued ferrous sulfate 324 mg (65 mg elemental iron) EC tablet TAKE 1 TABLET BY MOUTH EVERY DAY 90 tablet 1 4 025 Discontinued levothyroxine (SYNTHROID, LEVOTHROID) 100 mcg tablet Take 25 mcg by mouth 1 (one) time each day before breakfast. 025 Discontinued ondansetron (ZOFRAN) 4 mg tablet Take 1 tablet (4 mg total) by mouth every 8 (eight) hours if needed for nausea or vomiting for up to 7 days. 21 tablet 5 025 Active Problems Problem Noted Date Diagnosed Date Gastroesophageal reflux disease 02/18/2024 Hiatal hernia 02/18/2024 Class 3 severe obesity with body mass index (BMI) of 40.0 to 44.9 in adult 01/01/2024 Encounters Date Type Department Care Team Description 05/07/2024 1:45 PM EST Consult Bariatric Surgery - [address] [phone] Anne Dwyer MD Obesity, Class III, BMI 40-49.9 (morbid obesity) (CMS/[facility]) (Primary Dx); Gastroesophageal reflux disease, unspecified whether esophagitis present; Hiatal hernia; Preop testing 02/18/2024 11:00 AM EST Office Visit Bariatric Surgery [address] [phone] Cleo Ponce PA Class 3 severe obesity due to excess calories without serious comorbidity with body mass index (BMI) of 40.0 to 44.9 in adult (CMS/[facility]) (Primary Dx); Gastroesophageal reflux disease, unspecified whether esophagitis present; Hiatal hernia from Last 3 Months Surgical History Surgery [...] drink = 0.6 oz pur e alcohol) Comments Unknown Sex and Gender Information Value Date Recorded Sex Assigned at Female 05/07/2024 9:49 AM EST Legal Sex Female 11:02 AM EDT Gender Identity Female 05/07/2024 9:51 AM EST Sexual Orientation Straight 05/07/2024 9: 49 AM EST Obstetrics History Last Filed Vital Signs Vital Sign Reading Time Taken Comments Blood Pressure 103/72 05/07/2024 1:55 PM EST Pulse 94 05/07/2024 1:55 PM EST Temperature 36.8 ??C (98.3 ??F) 05/07/2024 1:55 PM ES T Respiratory Rate - - Oxygen Saturation - - Inhaled Oxygen Concentration - - Weight 118 kg (261 lb) 05/07/2024 1:55 PM EST Height 167.6 cm (5' 6 ) 05/07/2024 1:55 PM EST Body Mass Index 42.13 05/07/2024 1:55 PM EST Plan of Treatment Upcoming Encounters Date Type Department Care Team (Late st Contact Info) Description 05/22/2024 11:00 AM EST Hospital Encounter [facility] OR [address] [place] [phone] Anne Dwyer MD [address] [phone] 05/22/2024 11:00 AM EST - 05/22/2024 2:30 PM EST Surgery [facility] Main OR [address] [place] [phone] Anne Dwyer MD [address] [phone] [facility] BYPASS [[id number] (CPT??)] 06/05/2024 10:30 AM EST Office Visit Bariatric Surgery - [place] [address] [phone] Anne Dwyer MD [address] [phone] 06/19/2024 12:30 PM EDT Telemedicine Bariatric Surgery - [place] [address] [phone] [phone] 07/14/2024 10:30 AM EDT Office Visit Bariatric Surgery - [place] [address] [phone] Anne Dwyer MD [address] [phone] Scheduled Procedures Name Priority Associated Diagnoses Date/Ti me BYPASS GASTRIC ROBOT Class 3 severe obesity due to excess calories without serious comorbidity with body mass index (BMI) of 40.0 to 44.9 in adult (CMS/HCC) Gastroesophageal reflux disease, unspecified whether esophagitis present Hiatal hernia 05/22/2024 11:00 AM EST REPAIR HERNIA HIATAL ROBOT Class 3 severe obesity due to excess calories without serious comorbidity with body mass index (BMI) of 40.0 to 44.9 in adult (CMS/HCC) Gastroesophageal reflux disease, unspecified whether esophagitis present Hiatal hernia 05/22/2024 11:00 AM EST Health Maintenance Due Date Last Done Comments DTaP,Tdap,and Td Vaccines (1 - Tdap) 06/17/1995 Hepatitis B Vaccines (1 of 3 - 19+ 3-dose series) 06/17/2007 Cervical Cancer Screening: Pap Smear 2009 Depression Screening 10/26/2023 HIV Screening 10/26/2023 Hepatitis C Screening 10/26/2023 Social Influencers of Health Screening 10/26/2023 COVID-19 Vaccine ( season) 2023 03/08/2021, 08/17/2020, 07/20/2020 Cholesterol Screening (Lipid Panel) [...] patient's age to complete this topic Meningococcal B Vacine Aged Out No lo nger eligible based on patient's age to complete [...] Procedure Name Priority Date/Time Associated Diagnosis Comments CBC WITH AUTO DIFFERENTIAL Routine 05/07/2024 9:55 AM EST Class 3 severe obesity due to excess calories without serious comorbidity with body mass index (BMI) of 40.0 to 44.9 in adult ([facility]) BASIC METABOLIC PANEL Routine 05/07/2024 9:55 AM EST Class 3 severe obesity due to excess calories without serious comorbidity with body mass index (BMI) of 40.0 to 44.9 in adult ([facility]) CBC AND DIFFERENTIAL Routine 05/07/2024 9:55 AM EST Class 3 severe obesity due to excess calories without serious comorbidity with body mass index (BMI) of 40.0 to 44.9 in adult ([facility]) PROTHROMBIN TIME WITH INR Routine 05/07/2024 9:55 AM EST Class 3 severe obesity due to excess calories without serious comorbidity with body mass index (BMI) of 40.0 to 44.9 in adult ([facility]) TYPE AND SCREEN Routine 05/07/2024 9:55 AM EST Class 3 severe obesity due to excess calories without serious comorbidity with body mass index (BMI) of 40.0 to 44.9 in adult ([facility]) NELSON URINE CULTURE TUBE Routine 05/07/2024 9:55 AM EST Class 3 severe obesity due to excess calories without serious comorbidity with body mass index (BMI) of 40.0 to 44.9 in adult ([facility]) URINALYSIS WITH REFLEX MICROSCOPIC AND CULTURE Routine 05/07/2024 9:55 AM EST Class 3 severe obesity due to excess calories without serious comorbidity with body mass index (BMI) of 40.0 to 44.9 in adult ([facility]) URINALYSIS WITH REFLEX MICROSCOPIC AND CULTURE Routine 05/07/2024 9:55 AM EST Class 3 severe obesity due to excess calories without serious comorbidity with body mass index (BMI) of 40.0 to 44.9 in adult ([facility]) ECG 12-LEAD Routine 05/07/2024 9:43 AM EST Class 3 severe obesity due to excess calories without serious comorbidity with body mass index (BMI) of 40.0 to 44.9 in adult ([facility]) LIPID PANEL Routine 06/14/2023 from Last 3 Months or Most Recently Relevant to Health Maintenance Results * Urinalysis with reflex microscopic and culture (05/07/2024 9:55 AM EST) Specific [place] Urine 1.023 1.003 - 1.030 LAB URINALYSIS - AUTOMATED METHOD 05/07/2024 10:53 AM [facility] pH, Urine 7.0 5.0 - 8.0 pH LAB URINALYSIS - AUTOMATED METHOD 05/07/2024 10:53 AM [facility] Leukocytes, Urine Negative Negative LAB URINALYSIS - AUTOMATED METHOD 05/07/2024 10:53 AM [facility] Nitrite, Urine Negative Negative LAB URINALYSIS - AUTOMATED METHOD 05/07/2024 10:53 AM [facility] Protein, Urine Negative <=Trace mg/dL LAB URINALYSIS - AUTOMATED METHOD 05/07/2024 10:53 AM [facility] Glucose, Urine Negative Negative mg/dL LAB URINALYSIS - AUTOMATED METHOD 05/07/2024 10:53 AM [facility] Ketones, Urine Negative Negative mg/dL LAB URINALYSIS - AUTOMATED METHOD 05/07/2024 10:53 AM [facility] Urobilinogen, Urine 0.2 0.2 - 1.0 mg/dL LAB URINALYSIS - AUTOMATED METHOD 05/07/2024 10:53 AM [facility] Bilirubin, Urine Negative Negative LAB URINALYSIS - AUTOMATED METHOD 05/07/2024 10:53 AM [facility] Blood, Urine Negative Negative LAB URINALYSIS - AUTOMATED METHOD 05/07/2024 10:53 AM [facility] Urine Urine specimen obtained by clean catch procedure / Unknown Non-blood Collection / Unknown 05/07/2024 9:55 AM EST 05/07/2024 10:33 AM EST Cleo CARDOSO LAB URINE ORDERABLES Final R esult [facility] [address] [place] [address], * Nelson urine culture tube (05/07/2024 9:55 AM EST) Extra Tube Hold for add-ons. 05/07/2024 12:01 PM [facility] Comment:Auto resulted. Urine Urine specimen obtained by clean catch procedure / Unknown Non-blood Collection / Unknown 05/07/2024 9:55 AM EST 05/07/2024 10:33 AM EST us Cleo CARDOSO LAB URINE ORDERABLES Final R esult [facility] [address] [place] [address], * (ABNORMAL) CBC auto differential (05/07/2024 9:55 AM EST) WBC 8.4 4.8 - 10.8 K/mcL LAB HEMETOLOGY METHOD 05/07/2024 10:45 AM [facility] RBC 4.50 3.80 - 4.80 M/mcL LAB HEMETOLOGY METHOD 05/07/2024 10:45 AM [facility] Hemoglobin 11.7 11.5 - 16.0 g/dL LAB HEMETOLOGY METHOD 05/07/2024 10:45 AM [facility] Hematocrit 37.2 35.0 - 47.0 % LAB HEMETOLOGY METHOD 05/07/2024 10:45 AM [facility] MCV 83.4 79.0 - 98.0 FL LAB HEMETOLOGY METHOD 05/07/2024 10:45 AM [facility] MCH 26.2(L) 27.0 - 32.0 pcg LAB HEMETOLOGY METHOD 05/07/2024 10:45 AM [facility] MCHC 31.5(L) 32.0 - 37.0 g/dL LAB HEMETOLOGY METHOD 05/07/2024 10:45 AM [facility] RDW 16.1(H) 11.0 - 15.0 % LAB HEMETOLOGY METHOD 05/07/2024 10:45 AM [facility] Platelets 464(H) 130 - 400 K/mcL LAB HEMETOLOGY METHOD 05/07/2024 10:45 AM [facility] MPV 9.9 7.0 - 11.0 FL LAB HEMETOLOGY METHOD 05/07/2024 10:45 AM [facility] NRBC 0.0 <1.0 % LAB HEMETOLOGY METHOD 05/07/2024 10:45 AM [facility] NRBC Absolute 0.00 <0.10 K/mcL LAB HEMETOLOGY METHOD 05/07/2024 10:45 AM [facility] Neutrophils Relative 53.5 % LAB HEMETOLOGY METHOD 05/07/2024 10:45 AM [facility] Lymphocytes Relative 38.5 % LAB HEMETOLOGY METHOD 05/07/2024 10:45 AM [facility] Monocytes Relative 6.2 % LAB HEMETOLOGY METHOD 05/07/2024 10:45 AM [facility] Eosinophils Relative 0.5 % LAB HEMETOLOGY METHOD 05/07/2024 10:45 AM [facility] Basophils Relative 0.8 % LAB HEMETOLOGY METHOD 05/07/2024 10:45 AM [facility] Immature Granulocytes Relative 0.5 % LAB HEMETOLOGY METHOD 05/07/2024 10:45 AM [facility] Neutrophils Absolute 4.49 1.50 - 7.00 K/mcL LAB HEMETOLOGY METHOD 05/07/2024 10:45 AM [facility] Lymphocytes Absolute 3.23 1.00 - 5.00 K/mcL LAB HEMETOLOGY METHOD 05/07/2024 10:45 AM [facility] Monocytes Absolute 0.52 0.20 - 1.00 K/mcL LAB HEMETOLOGY METHOD 05/07/2024 10:45 AM [facility] Eosinophils Absolute 0.04 0.00 - 0.50 K/mcL LAB HEMETOLOGY METHOD 05/07/2024 10:45 AM [facility] Basophils Absolute 0.07 0.00 - 0.20 K/mcL LAB HEMETOLOGY METHOD 05/07/2024 10:45 AM EST [facility] Immature Granulocytes Absolute 0.04(H) 0.00 - 0.03 K/[facility] LAB HEMETOLOGY METHOD 05/07/2024 10:45 AM EST [facility] Blood Venous blood specimen / Unknown Venipuncture / Unknown 05/07/2024 9:55 AM EST 05/07/2024 10:33 AM EST Cleo CARDOSO LAB BLOOD ORDERABLES Final R esult Performing Organization Address City/[facility]/ZIP Co de Phone Number [facility] [address] [place] [address], [place] [phone] * Prothrombin time with INR (05/07/2024 9:55 AM EST) Protime 12.7 10.6 - 13.9 sec LAB COAGULATION METHOD 05/07/2024 11:11 AM EST [facility] INR 1.0 LAB COAGULATION METHOD 05/07/2024 11:11 AM EST [facility] Blood Venous blood specimen / Unknown Venipuncture / Unknown 05/07/2024 9:55 AM EST 05/07/2024 10:33 AM EST us Cleo CARDOSO LAB BLOOD ORDERABLES Final R esult [facility] [address] [place] [address], [place] [phone] * Type and screen (05/07/2024 9:55 AM EST) ABO Group A 05/07/2024 1:12 PM EST [facility] Rh Type Positive 05/07/2024 1:12 PM EST [facility] Antibody Screen Negative 05/07/2024 1:12 PM EST [facility] Blood Venous blood specimen / Unknown Venipuncture / Unknown 05/07/2024 9:55 AM EST 05/07/2024 10:33 AM EST Cleo CARDOSO LAB BLOOD BANK TEST ORDERABL ES Final Result [facility] [address] [place] [address], * BMP (05/07/2024 9:55 AM EST) Sodium 136 133 - 145 mmol/L LAB CHEMISTRY METHOD 05/07/2024 12:07 PM [facility] Potassium 3.9 3.5 - 5.5 mmol/L LAB CHEMISTRY METHOD 05/07/2024 12:07 PM [facility] Chloride 105 96 - 110 mmol/L LAB CHEMISTRY METHOD 05/07/2024 12:07 PM [facility] CO2 23 21 - 32 mmol/L LAB CHEMISTRY METHOD 05/07/2024 12:07 PM [facility] Anion Gap 8 3 - 11 LAB CHEMISTRY METHOD 05/07/2024 12:07 PM [facility] Glucose 98 70 - 100 mg/dL LAB CHEMISTRY METHOD 05/07/2024 12:07 PM [facility] BUN 11 5 - 25 mg/dL LAB CHEMISTRY METHOD 05/07/2024 12:07 PM [facility] Creatinine 1.03 0.50 - 1.10 mg/dL LAB CHEMISTRY METHOD 05/07/2024 12:07 PM [facility] eGFR 73 >=60 mL/min/1. 73m2 LAB CHEMISTRY METHOD 05/07/2024 12:07 PM [facility] Comment:Calculation based on the??Chronic Kidney Disease Epidemiology Collaboration (CKD-EPI) equation refit??without adjustment for race. BUN/Creatinine Ratio 10.7 LAB CHEMISTRY METHOD 05/07/2024 12:07 PM EST [facility] Calcium 9.3 8.5 - 10.5 mg/dL LAB CHEMISTRY METHOD 05/07/2024 12:07 PM EST [facility] Blood Venous blood specimen / Unknown Venipuncture / Unknown 05/07/2024 9:55 AM EST 05/07/2024 10:33 AM EST Cleo CARDOSO LAB BLOOD ORDERABLES Final R esult Performing Organization Address City/[facility]/ZIP Co de Phone Number [facility] [address] [place] [address], [place] [phone] * ECG 12 lead (05/07/2024 9:43 AM EST) Ventricular Rate ECG 80 BPM GEMUSE Atrial Rate 80 BPM GEMUSE P-R Interval 142 ms GEMUSE QRS Duration 80 ms GEMUSE Q-T Interval 364 ms GEMUSE QTc 419 ms GEMUSE P Wave Greer 30 degrees GEMUSE R Greer 11 degrees GEMUSE T Greer 19 degrees GEMUSE ECG Interpretation Normal sinus rhythm No previous ECGs available Confirmed by LISA BERNARD ([id number]) on 05/08/2024 5:01:38 AM GEMUSE 05/07/2024 9:43 AM EST 05/08/2024 5:01 AM EST Cleo CARDOSO ECG ORDERABLES Final Result GEMUSE * (ABNORMAL) Lipid panel (06/14/2023) LDL/HDL Ratio 4 0 - 4 Triglycerides 263(A) 0 - 150 mg/dL Cholesterol 173 0 - 200 mg/dL HDL 40 >=40 mg/dL LDL Cholesterol 81 0 - 100 mg/dL Blood Venous blood specimen / Unknown Historical Provider LAB BLOOD ORDERABLES Silvia l Result from Last 3 Months or Most Recently Relevant to Health Maintenance Insurance [facility] [employer] Care Teams Mirror Fabrication Supervisor Relationship Specialty Start Date End Date Niall Gonsalves PA PCP - General Physician Search Manager 05/06/24
--- OUTSIDE RECORDS SUMMARY | 2024-05-15 08:16 | XMS_ITS | Encounter Summary ---
Author Organization [employer] Address [address] [facility] [address] [place] [address] Care Team Providers Care Music Promoter Name Role Phone Unavailable Primary Care Provider Unavailabl e Reason for Visit * Reason Comments Dry Eye Encounter Details Date Type Department Care Team (Late st Contact Info) Description 03/19/2023 10:00 AM EST Office Visit [facility] [address] [place], [place] [id number] Alexus Johnson, OD [address] [place] [address] MGD (meibomian gland dysfunction) (Primary Dx); Rosacea; Myopia of both eyes with astigmatism Social History Tobacco Use Types Packs/Day Years Used Date Smoking Tobacco: Never Tobacco Cessation:Counseling Given: Not Answered Comments Unknown Sex and Gender Information Value Date Recorded Sex Assigned at Female 01/30/2022 10:34 AM EDT Legal Sex Female 10:34 AM EDT Gender Identity Female 01/30/2022 10:34 AM EDT Sexual Orientation Straight 01/30/2022 10 :34 AM EDT documented as of this encounter Progress Notes * Alexus Johnson, OD - 03/19/2023 10:00 AM EST Eye Care Progress Note Patient ID: Paige Rodriguez is a 32 y.o. female. Chief Complaint Dry Eye HPI Here for a complete eye exam. The patient complains of both of her eyes constantly burning and feeling dry. She has a history or Rosacea. She is using a new cream (ketoconazol) as well as taking oralDoxycycline prescribed by her impregnator and drier helper. She has a follow up scheduled with dermatology in April. She has tried using artificial tears with some relief but is currently not using any drops. Ceasar complains of blurry distance vision when driving at night for the last 2 months. States that night driving is the only time she notices the distance blur. Last eye exam was here on 03/16/2021. Last edited by Alexus Johnson OD on 04/13/2023 4:22 PM. Current Outpatient Medications Medication Sig Dispense Refill ibuprofen 800 MG tablet ketoconazole (NIZOral) 2 % cream Apply topically in the morning. triamcinolone (Kenalog) 0.1 % cream No current facility-administered medications for this visit. Past Medical History: Diagnosis Date Rosacea History reviewed. No pertinent surgical history. No family history on file. Social History Socioeconomic History Marital status: Single Spouse name: Not on file Number of children: Not on file Years of education: Not on file Highest education level: Not on file Occupational History Not on file Tobacco Use Smoking status: Never Smokeless tobacco: Not on file Substance and Sexual Activity Alcohol use: Not on file Drug use: Not on file Sexual activity: Not on file Other Topics Concern Not on file Social History Narrative Not on file Social Determinants of Health Food Insecurity: Not on file Transportation Needs: Not on file Intimate Partner Violence: Not on file Housing Stability: Not on file Not on File ROS Positive for: Skin, Eyes Negative for: Constitutional, Gastrointestinal, Neurological, Genitourinary, Musculoskeletal, HENT,Endocrine, Cardiovascular, Respiratory, Psychiatric, Allergic/Imm, Heme/Lymph Last edited by Silvio Atkinson on 03/19/2023 10:16 AM. Base Eye Exam Visual Acuity (Snellen - Linear) Right Left Dist cc 20/20 -2 20/20 -1 Correction: Glasses Tonometry ([facility] , 10:16 AM) Right Left Pressure 15 13 Pupils Pupils APD Right PERRL None Left PERRL None Visual Velazquez (Counting fingers) Left Right Full Full Extraocular Movement Right Left Full Full Neuro/Psych Oriented x3: Yes Mood/Affect: Normal Dilation Both eyes: 1.0% Tropicamide @ 10:16 AM Slit Lamp and Fundus Exam External Exam Right Left External Rosacea of cheek and forehead rosacea of cheek and forehead Slit Lamp Exam Right Left Lids/Lashes 1+ collarettes, Trace MGD 1+ collarettes, Trace MGD Conjunctiva/Sclera Trace injection Trace injection Cornea Nasal pterygium, TBUT 6 sec Nasal pterygium, TBUT 4 sec Anterior Chamber Deep and quiet Deep and quiet Iris Flat Flat Lens Clear Clear Fundus Exam Right Left Vitreous Clear Clear Disc [place] and Distinct [place] and Distinct C/D Ratio Vertical 0.25 0.25 C/D Ratio Horizontal 0.25 0.25 Macula Flat and Intact Flat and Intact Vessels Normal Normal Periphery No holes/breaks/tears 360 degrees No holes/breaks/tears 360 degrees Refraction Wearing Rx Sphere Cylinder Bee Branch Right -2.00 -0.50 115 Left -2.00 Sphere Manifest Refraction Sphere Cylinder Bee Branch Dist VA Right -2.00 -0.75 110 20/20 Left -1.75 -0.75 105 20/20 Near VA Both: 20/20 Final Rx Sphere Cylinder Bee Branch Dist VA Right -2.00 -0.75 110 20/20 Left -1.75 -0.75 105 20/20 Expiration Date: 03/19/2024 Assessment/Plan Diagnoses and all orders for this visit: MGD (meibomian gland dysfunction) The patient was educated that there are glands in the eyelids that secrete oil to mix with the tearlayer over the cornea. These glands are called meibomian glands. The patient was educated that meibomian gland dysfunction (MGD) occurs when the glands are not secreting enough oil or when the oil they secrete is of poor quality. Most often, the oil gland openings get plugged up so that less oil comes out of the glands. The oil that does make it out of the glands can be granular (crusty) or otherwise abnormal, and can cause irritation. The patient was educated that this condition can cause blurry vision and ocular discomfort. The patient was educated to begin performing lid scrubs using a washcloth, warm water, and Óscar and Óscar baby shampoo to clean the edges of her lashes to help the glands better express. She was given a handout of OTC artificial tears to purchase and use 3 to 4 times a day in both eyes. She was given a handout with information regarding Ocusoft eyelid scrubs as well. Will monitor at next full eye exam. Rosacea Being followed by Dermatology. She is using daily Ketoconazole cream on her face and is taking Doxycycline orally. Suggested she speak with hr PCP regarding the off-label use of Spironolactone for treatment as it has shown great results with treating rosacea. Her internal ocular health was unremarkable in both eyes. Will monitor with complete eye exam in 2 years, sooner with new vision or ocular c omplaints. Myopia of both eyes with astigmatism Glasses prescription updated and given. Will monitor at the patient's next full eye exam. Alexus Johnson, OD 04/13/2023, 4:34 PM Student Name: Silvio Atkinson I attest that I was physically present with the optometry student. I personally saw and evaluated the patient and performed my own history and examination. I have reviewed, verified, and revised the documented findings as necessary and agree with the content and plan as written. documented in this encounter Plan of Treatment Not on file documented as of this encounter Visit Diagnoses Diagnosis MGD (meibomian gland dysfunction)- Primary Other disorders of eyelid Rosacea Myopia of both eyes with astigmatism documented in this encounter
--- OUTSIDE RECORDS SUMMARY | 2024-05-15 08:16 | XMS_ITS | Encounter Summary ---
Author Organization [employer] [facility] Address [address] [facility] [address]t [place] [address] Care Team Providers Care Finance And Administration Manager Name Role Phone Unavailable Primary Care Provider Unavailabl e Encounter Details Date Type Department Care Team (Latest Contact Info) Description 06/12/2018 Abstract [facility] CONVERSIONS Dental, Provider, DDS Social History Tobacco [...]
[2024-05-15 08:17] VITALS: BMI 43.0
--- OUTSIDE RECORDS SUMMARY | 2024-05-15 08:17 | XMS_ITS | Clinical Summary ---
Author Organization [employer] Address [address] [place] [address] [address] [place] [address] Care Team Providers Care Heating Repair Technician Name Role Phone Unavailable Primary Care Provider [...] this topic Insurance STANDARD [address] [place] [id number]
--- OUTSIDE RECORDS SUMMARY | 2024-05-15 08:17 | XMS_ITS | Encounter Summary ---
Author Organization [facility] Address [address] [place] [address] Care Team Providers Care Can Maker Name Role Phone Niall Gonsalves Primary Care Provider Reason for Visit * Reason Comments Pre-op Exam Pre op bypass 05/22 Encounter Details Date Type Department Care Team (Late st Contact Info) Description 05/07/2024 1:45 PM EST Consult Bariatric Surgery - [place] [address] [place] [phone] Anne Dwyer MD [address] [place] [address] Obesity, Class III, BMI 40-49.9 (morbid obesity) (CMS/[facility]) (Primary Dx); Gastroesophageal reflux disease, unspecified whether esophagitis present; Hiatal hernia; Preop testing Social History Tobacco Use Types Packs/Day Years Used Date Smoking Tobacco: Never Smokeless Tobacco: Never Alcohol Use Standard Drinks/Week Comments Yes 0 (1 standard drink = 0.6 oz pur e alcohol) Comments Unknown Sex and Gender Information Value Date Recorded Sex Assigned at Female 05/07/2024 9:49 AM EST Legal Sex Female 11:02 AM EDT Gender Identity Female 05/07/2024 9:51 AM EST Sexual Orientation Straight 05/07/2024 9: 49 AM EST documented as of this encounter Last Filed Vital Signs Vital Sign Reading [...] Mass Index 42.13 05/07/2024 1:55 PM EST documented in this encounter Ordered Prescriptions Prescription Sig Dispense Quantity Refills Last Filled Start Date End Date ursodioL (ACTIGALL) 300 mg capsule Take 1 capsule (300 mg total) by mouth 2 (two) times a day. 60 each 5 05/07/2024 5 simethicone (MYLICON) 80 mg chewable tablet Chew 1 tablet (80 mg total) every 6 (six) hours if needed for flatulence. 30 tablet 05/07/2024 wheat dextrin 3 gram/3.5 gram powder in packet Take 1 packet by mouth 1 (one) time each day. 30 packet 05/07/2024 polyethylene glycol (MIRALAX) 17 gram packet Take 17 g by mouth 1 (one) time each day. 510 g 05/07/2024 5 acetaminophen (TYLENOL) 500 mg tablet Take 2 tablets (1,000 mg total) by mouth every 8 (eight) hours. 30 each 05/07/2024 5 pantoprazole (PROTONIX) 40 mg EC tablet Take 1 tablet (40 mg total) by mouth 1 (one) time each day before breakfast. Do not crush, chew, or split. 30 each 2 05/07/2024 5 ondansetron (ZOFRAN) 4 mg tablet Take 1 tablet (4 mg total) by mouth every 8 (eight) hours if needed for nausea or vomiting for up to 7 days. 21 tablet 05/07/2024 5 documented in this encounter Progress Notes * Anne Dwyer MD - 05/07/2024 1:45 PM EST Paige presents for pre op of gastric bypass and hiatal hernia repair scheduled for 05/22/24. Did her PAT today. Diet: worsening reflux. Has a hiatal hernia. Started preop diet Exercise: walking Comorbidity: Hypercholesterolemia Hypothyroid Pre-DM PAT: today. Labs reviewed. EKG normal sinus with arhythmia. Denies chest pain. CXR-done, read pending. Weight change since last visit: 261-261= 0 lbs Vitals: 05/07/24 1355 BP: 103/72 Pulse: 94 Temp: 36.8 ??C (98.3 ??F) TempSrc: Temporal Weight: 118 kg (261 lb) Height: 1.676 m (66 ) Exam: alert, abdomen soft and obese, non tender, lungs clear, heart regular A/P: 33-year-old female scheduled for a robotic gastric bypass and hiatal hernia repair on 05/22/2024. Underwent her preop testing today. Chest x-ray still pending. Reviewed the rest. Continue healthydiet and exercise. We went over her home medications as well as postop meds which were prescribed today. All perioperative questions discussed. Continue preop diet until surgery. documented in this encounter Plan of Treatment Upcoming Encounters Date Type Department Care Team (Late st Contact Info) Description 05/22/2024 11:00 AM EST Hospital Encounter [facility] OR [address] [place] [phone] Anne Dwyer MD [address] [phone] 05/22/2024 11:00 AM EST - 05/22/2024 2:[address] [facility] OR [address] [place] [phone] Anne Dwyer MD [address] [phone] DAVINCI GASTRIC BYPASS [[id number] (CPT??)] 06/05/2024 10:30 AM EST Office Visit Bariatric Surgery - [place] [address] [phone] Anne Dwyer MD [address] [phone] 06/19/2024 12:30 PM EDT Telemedicine Bariatric Surgery - [place] [address] [phone] [phone] 07/14/2024 10:30 AM EDT Office Visit Bariatric Surgery - [place] [address] [phone] Anne Dwyer MD [address] [phone] Scheduled Procedures Name Priority Associated Diagnoses Date/Ti me BYPASS GASTRIC ROBOT Class 3 severe obesity due to excess calories without serious comorbidity with body mass index (BMI) of 40.0 to 44.9 in adult ([facility]) Gastroesophageal reflux disease, unspecified whether esophagitis present Hiatal hernia 05/22/2024 11:00 AM EST REPAIR HERNIA HIATAL ROBOT Class 3 severe obesity due to excess calories without serious comorbidity with body mass index (BMI) of 40.0 to 44.9 in adult ([facility]) Gastroesophageal reflux disease, unspecified whether esophagitis present Hiatal hernia 05/22/2024 11:00 AM EST documented as of this encounter Visit Diagnoses Diagnosis Class 3 severe obesity with body mass index (BMI) of 40.0 to 44.9 in adult ([facility]) Gastroesophageal reflux disease Esophageal reflux Hiatal hernia Diaphragmatic hernia without mention of obstruction or gangrene Obesity, Class III, BMI 40-49.9 (morbid obesity) ([facility])- Primary Gastroesophageal reflux disease, unspecified whether esophagitis present Hiatal hernia Diaphragmatic hernia without mention of obstruction or gangrene Preop testing Unspecified pre-operative examination Class 3 severe obesity due to excess calories without serious comorbidity with body mass index (BMI) of 40.0 to 44.9 in adult ([facility]) Gastroesophageal reflux disease, unspecified whether esophagitis present Hiatal hernia Diaphragmatic hernia without mention of obstruction or gangrene documented in this encounter Care Teams Can Maker Relationship Specialty Start Date End Date Niall Gonsalves PA PCP - General Physician [facility] 05/06/24 documented as of this encounter
== END 2024-05-15 08:30 | disposition home or self-care (01) ==
PROVIDERS: PCP Internal Medicine; Visit Provider Orthopaedic Surgery
DX: M54.50 Low back pain, unspecified (principal); M79.604 Pain in right leg
CPT/HCPCS: 99213

== ENCOUNTER → 2024-05-15 08:10 | Outpatient (BNVA) | payer OTHER, SELFPAY | PROVIDERS: PCP Internal Medicine; Visit Provider Orthopaedic Surgery | DX: M54.50 Low back pain, unspecified (principal); M79.606 Pain in leg, unspecified | CPT/HCPCS: 99212 ==

== ENCOUNTER 2024-07-21 13:37 | Emergency (ER) | payer OTHER, SELFPAY ==
--- NOTE | ~2024-07-21 | CT_ITS ---
CLINICAL HISTORY: epigastric pain, recent bariatric surgery --- Additional Notes or Special Instructi ons: The patient 2 months status post gastric bypass surgery, given 30ml of gastro in 900ml of water, drank 1/3.Scanned within 1 hour per bariatric surgeon CT abdomen and pelvis without contrast Comparison: CT/SR - CT ABDOMEN PELVIS W IV CON - 07/21/24 20:32 EDT Findings: No consolidation or effusion. Unremarkable gallbladder and solid organs. No urolithiasis. Status post gastric bypass. Oral contrast is seen from the proximal jejunum through the ascending colon. No extraluminal contrast. No bowel obstruction, pneumatosis or pneumoperitoneum. Normal appendix. Asymmetrically enlarged left ovary. Pelvic organs are otherwise within normal limits. No acute fracture. IMPRESSION: 1. Oral contrast is seen from the proximal jejunum through the ascending colon. No extraluminal contrast. 2. Asymmetrically enlarged left ovary. Correlate clinically and consider pelvic ultrasound for further evaluation. This document has been electronically signed by: Kathi Moss MD on 07/22/2024 00:15:20
--- NOTE | ~2024-07-21 | CT_ITS ---
CLINICAL HISTORY: Bariatric surg in May, now unable jarad. p.o. CT abdomen and pelvis with contrast Comparison: None Findings: No consolidation or effusion. Unremarkable gallbladder and solid organs. No urolithiasis. No bowel obstruction, pneumoperitoneum, or pneumatosis. Postsurgical changes related to gastric bypass surgery, grossly unremarkable. No hiatal hernia. Pelvic contents unremarkable. Normal appendix. The bones are intact. IMPRESSION: No acute findings. Postsurgical changes related to gastric bypass surgery, grossly unremarkable, limited evaluation without oral contrast. No hiatal hernia. This document has been electronically signed by: Catalina Donnelly MD on 07/21/2024 22:10:44
[2024-07-21 13:49] VITALS: BP 107/71; PULSE 73; RESP 18; TEMP 36.6; O2SAT 100; BMI 35.4
--- NOTE | 2024-07-21 13:54 | ED_ITS ---
HPI - General Adult General Chief complaint: Abdominal Pain Stated complaint: vomiting abd pain Time Seen by Provider: 07/21/24 18:12 History of Present Illness ED Provider: Ayden MARKS narrative: The patient is a 34-year-old female who had gastric bypass surgery at [facility] [address] Anne Dwyer. She did reasonably well following the surgery and was seen 1 week ago in follow up. At that time she seemed to be doing well. However over the last 4 days the patient has had difficulty with oral intake. She has felt nauseated when she tries to eat. She feels nauseated but does not feel his she is able to vomit. She has also had some epigastric discomfort. She has had no fevers. She says that she feels weak and dizzy from a lack of oral intake. Related Data Home Medications ?Medication ?Instructions ?Recorded ?Confirmed ketoconazole 2 % topical cream 1 appl topical 04/21/24 05/15/24 Previous Rx's ?Medication ?Instructions ?Recorded cholecalciferol (vitamin D3) 25 25 mcg PO DAILY 90 days #90 caps 02/04/24 mcg (1,000 unit) capsule ibuprofen 800 mg tablet 800 mg PO Q8H PRN pain 30 days #90 04/21/24 tabs levothyroxine 25 mcg tablet 25 mcg PO DAILY 90 days #90 tabs 04/21/24 omeprazole 20 mg capsule,delayed 20 mg PO DAILY 30 days #30 caps 04/21/24 release diclofenac sodium 50 mg 50 mg PO Q12H PRN for pain 5 days 05/07/24 tablet,delayed release #10 tabs baclofen 10 mg tablet 10 mg PO BID 15 days #30 tabs 05/23/24 Allergies Allergy/AdvReac Type Severity Reaction Status Date / Time No Known Allergies Allergy Verified 07/21/24 13:52 [No Known Allergies*] Review of Systems 2 Review of Systems: Yes all other systems are reviewed and are negative PMFSH Past Medical History Medical History Missed with demise before 20 completed weeks of gestation Missed period Encounter for routine screening for malformation using ultrasound Rosacea Physical exam DUB (dysfunctional uterine bleeding) Allergic rhinitis Chronic diarrhea Surgical History History of bilateral tubal ligation History of Family History Family History Mother Epilepsy Maternal Grandfather Cardiac arrest Father No problems noted. Social History Social History Household Members: Children Housing: Apartment Are you a primary pet caregiver to a significant other at home: No Do you presently have visiting nurse or other home services: No Alcohol intake: current Alcohol intake frequency: holidays/special occasions only Alcohol type: wine Patient Tobacco Use Status: Never used Tobacco Smoked in Last 30 Days: No e-Cigarette/Vaping Use: Never Used Second Hand Smoke Exposure: No Use of substances other than those prescribed or required for medical reasons: No Agree to transfusion: Yes Advance Directives: No Advance Directives Information Provided: No Patient : No service: No Current occupational status: employed 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 She does not appear in obvious distress. HENMT Other: Face is symmetrical, mucous membranes moist Eyes General: appearance normal, both eyes and all related structures Neck Neck: Yes full ROM Resp Effort & Inspection: normal respiratory effort Auscultation: clear to auscultation bilaterally Cardio Rate: regular rate Rhythm: regular rhythm Heart sounds: S1 normal heart sound present and S2 normal heart sound present GI Other: The abdomen seems soft. There is some epigastric tenderness but otherwise there does not seem to be any significant tenderness. No rebound or guarding Skin Other: Skin is dry and unremarkable Neuro Other: The patient is awake and alert with a normal mental status. Cranial nerves are grossly intact. She moves her extremities normally and appropriately. Extrem Other: No peripheral edema Course Course Course Narrative: This is a rapid medical exam performed by Suki Reis NP: Additional HPI, ROS, PE not included below will be deferred to primary provider. Patient is a 34-year-old female with history of gastric bypass at [facility] presenting with complaint of generalized abdominal pain, nausea, unable to vomit, weakness and dizziness. Denies fevers. Seen at bariatric office on Sunday and had labs ordered, etc. but is unaware of any results. Plan: will start with labs, imaging deferred to primary provider Reevaluation(s) Reevaluation #1: 07/22/2024 [place]'s progress note: Repeat CT with oral contrast showing the followin. Oral contrast is seen from the proximal jejunum through the ascending colon. No extraluminal contrast. 2. Asymmetrically enlarged left ovary. Correlate clinically and consider pelvic ultrasound for further evaluation. Repeat abdominal exam shows no abdominal tenderness, patient is able to tolerate p.o. intake, patient was instructed to follow-up with her surgeon. Patient stable for discharge. Time: 01:23 Medications Administered Discontinued Medications Generic Name Dose Route Start Last Admin Trade Name Freq PRN Reason Stop Dose Admin Diatrizoate Meglum/Diatrizoate Sod 30 ml 07/21/24 22:58 07/21/24 23:00 Diatrizoate Meglumine, Sodium 30 Ml Solution PO 07/21/24 22:59 30 ml ONCE ONE Administration Famotidine 20 mg 07/21/24 20:33 07/21/24 20:58 Famotidine/Pf 20 Mg/2 Ml Vial IVPUSH 07/21/24 20:34 20 mg ONCE ONE Administration Sodium Chloride 1,000 mls @ 999 mls/hr 07/21/24 19:00 07/21/24 20:57 Ns IV 07/21/24 20:00 Infused .Q1H1M TAMMY Infusion Lactated Ringer's 1,000 mls @ 999 mls/hr 07/21/24 22:30 07/21/24 22:39 Lr IV 07/21/24 23:30 999 mls/hr .Q1H1M TAMMY Administration Ondansetron HCl 4 mg 07/21/24 20:34 07/21/24 20:56 Ondansetron Hcl 4 Mg/2 Ml Vial IVPUSH 07/21/24 20:35 4 mg ONCE ONE Administration Medical Decision Making Medical Decision Making [facility] Narrative: The patient is a 34-year-old woman who is 2 months postop from gastric bypass surgery. She seems to has been doing reasonably well until the last 4 days. Over the last 4 days she seems to have difficulty with the oral intake. She seems to not tolerate oral intake and seems to have associated nausea although there has been no vomiting. She also come has some upper abdominal pain. Clinically the patient does not appear acutely ill and she has normal vital signs. Her abdomen seems quite soft although there is some tenderness in the epigastrium. Labs show a normal white count and differential, normal chemistries. Her urinalysis however shows a high specific gravity and greater than 160 ketones. This would be consistent with poor oral intake and specifically poor intake of calories. In order to evaluate the patient's abdomen I ordered a CT with IV and oral contrast. Unfortunately the scan was done without oral contrast. I spoke to Dr. Lozano, the bariatric surgeon covering for the patient is bariatric surgeon (Dr. Anne Dwyer). He recommended that the CT be repeated with oral contrast. In the meantime the patient has been given IV fluids, IV famotidine, and IV ondansetron. I will be signing the patient out to the oncoming emergency physician at the end of my shift pending the results of a second CAT scan with oral contrast. Lab Data 07/21/24 14:06 07/21/24 14:06 Labs: Lab Results 07/21/24 07/21/24 Range/Units 14:06 17:27 WBC 7.9 (4.8-10.8) X10*3/uL RBC 4.63 (4.20-5.50) X10*6/uL Hgb 12.7 (12.0-16.0) g/dl Hct 39.3 (37.0-47.0) % MCV 84.9 (80.0-98.0) fL MCH 27.4 (27.0-33.0) pg MCHC 32.3 (31.0-35.0) g/dl RDW 17.7 H (11.0-16.0) % Plt Count 299 D (160-400) X10*3/uL MPV 10.6 (9.4-12.3) fL Immature Gran % (Auto) 0.4 (0.0-0.4) % Neut % (Auto) 57.9 (45-73) % Lymph % (Auto) 32.6 (20-40) % [place] % (Auto) 8.1 (2-11) % Eos % (Auto) 0.4 (0-4) % Baso % (Auto) 0.6 (0-2) % Lymph # (Auto) 2.6 (1.2-4.9) X10*3/uL [place] # (Auto) 0.6 (0.1-1.2) X10*3/uL Eos # (Auto) 0.0 (0.0-0.4) X10*3/uL Baso # (Auto) 0.1 (0.0-0.2) X10*3/uL Abs Immat Gran (auto) 0.03 (0.00-0.03) X10*3/uL Absolute Neuts (auto) 4.6 (2.0-8.3) x10*3/uL Absolute Nucleated RBC 0.000 (0.0-0.012) X10*3/uL Nucleated RBC % (auto) 0.0 (0.0-0.2) /100WBC PT 13.8 H (10.9-12.4) SEC INR 1.2 H (0.9-1.1) Sodium 141 (135-145) mmol/L Potassium 3.5 (3.3-5.1) mmol/L Chloride 107 (96-108) mmol/L Carbon Dioxide 22 (22-29) mmol/L Anion Gap 16 (12-20) BUN 5 L (9-16) mg/dL Creatinine 0.77 (0.5-1.4) mg/dL Estim Creat Clear Calc 120.1 Estimated GFR > 60 Random Glucose 79 (60-115) mg/dL Calcium 9.0 D (8.4-10.2) mg/dL Magnesium 1.7 (1.6-2.6) mg/dL Total Bilirubin 0.5 (0.0-1.0) mg/dL AST 23 (5-31) U/L ALT 12 (0-31) U/L Alkaline Phosphatase 62 (39-117) U/L Total Protein 7.1 (6.5-8.0) g/dL Albumin 3.9 (3.5-5.0) g/dL Lipase 32 (8-78) U/L Beta HCG, Quant < 2 mIU/mL Urine Color Dark Yellow Urine Appearance Clear Urine pH 6.0 (5.0-9.0) Ur Specific [place] >= 1.030 H (1.005-1.025) Urine Protein 30 (1+) H (Neg-Trace) mg/dL Urine Glucose (UA) Negative (Negative) mg/dL Urine Ketones >=160 (Negative) mg/dL Urine Blood Negative (Negative) Urine Nitrite Negative (Negative) Ur Leukocyte Esterase Negative (Negative) Urine RBC 3-5 H (0-2) /HPF Urine WBC 0-5 (0-5) /HPF Ur Squamous Epith Cells 6-10 (0-2) /HPF Urine Bacteria Trace (None Seen) Hyaline Casts 0-2 (0-2) /LPF Discharge Plan Discharge Clinical Impression: Nausea and vomiting, Epigastric abdominal pain, History of bariatric surgery Patient Disposition: Home, Self-Care Instructions: Laparoscopic Sleeve Gastrectomy (DC) Prescriptions: No Action cholecalciferol (vitamin D3) 25 mcg (1,000 unit) capsule 25 mcg PO DAILY 90 Days Qty: 90 1RF diclofenac sodium 50 mg tablet,delayed release (DR/EC) 50 mg PO Q12H PRN (Reason: for pain) 5 Days Qty: 10 0RF baclofen 10 mg tablet 10 mg PO BID 15 Days Qty: 30 0RF ketoconazole 2 % cream 1 appl topical ibuprofen 800 mg tablet 800 mg PO Q8H PRN (Reason: pain) 30 Days Qty: 90 1RF levothyroxine 25 mcg tablet 25 mcg PO DAILY 90 Days Qty: 90 1RF omeprazole 20 mg capsule,delayed release(DR/EC) 20 mg PO DAILY 30 Days Qty: 30 1RF Referrals: Anne Dwyer MD [Physician] - Print Language: [place]
[2024-07-21 14:14] LABS: MANUAL DIFF FLAG NO
[2024-07-21 14:22] LABS: INTERNATIONAL NORM RATIO 1.2 (0.9-1.1); Prothrombin Time 13.8 SEC (10.9-12.4)
[2024-07-21 14:32] LABS: Basophils Absolute Auto 0.1 X10*3/uL (0.0-0.2); Basophils Percent Auto 0.6 % (0-2); Eosinophils Percent Auto 0.4 % (0-4); Hematocrit 39.3 % (37.0-47.0); Hemoglobin 12.7 g/dl (12.0-16.0); Imm Gran Abs Auto 0.03 X10*3/uL (0.00-0.03); Imm Gran Pct Auto 0.4 % (0.0-0.4); Lymphocytes Absolute Auto 2.6 X10*3/uL (1.2-4.9); Lymphocytes Percent Auto 32.6 % (20-40); Mean Corpuscular HGB Conc 32.3 g/dl (31.0-35.0); Mean Corpuscular Hemoglobin 27.4 pg (27.0-33.0); Mean Corpuscular Volume 84.9 fL (80.0-98.0); Mean Platelet Volume 10.6 fL (9.4-12.3); Monocytes Absolute Auto 0.6 X10*3/uL (0.1-1.2); Monocytes Percent Auto 8.1 % (2-11); Neutrophils Absolute Auto 4.6 x10*3/uL (2.0-8.3); Neutrophils Percent Auto 57.9 % (45-73); Platelet Count 299 X10*3/uL (160-400); Red Blood Count 4.63 X10*6/uL (4.20-5.50); Red Cell Distribution Width 17.7 % (11.0-16.0); White Blood Count 7.9 X10*3/uL (4.8-10.8)
[2024-07-21 14:36] LABS: Alanine Aminotransferase 12 U/L (0-31); Albumin Level 3.9 g/dL (3.5-5.0); Alkaline Phosphatase 62 U/L (39-117); Anion Gap 16 (12-20); Aspartate Amino Transferase 23 U/L (5-31); Bilirubin Total 0.5 mg/dL (0.0-1.0); Blood Urea Nitrogen 5 mg/dL (9-16); Carbon Dioxide 22 mmol/L (22-29); Chloride 107 mmol/L (96-108); Creatinine Clr Calc Pharmacy 120.1; Estimated Glomerular Filt Rate > 60; Glucose Random 79 mg/dL (60-115); Lipase 32 U/L (8-78); Magnesium 1.7 mg/dL (1.6-2.6); Potassium 3.5 mmol/L (3.3-5.1); Sodium 141 mmol/L (135-145); Total Protein 7.1 g/dL (6.5-8.0)
[2024-07-21 14:38] LABS: HCG Quantitative < 2 mIU/mL
--- OUTSIDE RECORDS SUMMARY | 2024-07-21 17:04 | XMS_ITS | Clinical Summary ---
Author Organization [employer] Address [address] [place] [address] [address] [place] [address] Care Team Providers Care Meat Passer Name Role Phone Unavailable Primary Care Provider [...] this topic Insurance STANDARD [address] [place] [id number]
--- OUTSIDE RECORDS SUMMARY | 2024-07-21 17:04 | XMS_ITS | Clinical Summary ---
Author Organization 175 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 Active pantoprazole (PROTONIX) 40 mg EC tablet Take 1 tablet (40 mg total) by mouth 1 (one) time each day before breakfast. Do not crush, chew, or split. 30 each 2 5 08/06/19 25 Active wheat dextrin 3 gram/3.5 gram powder in packet Take 1 packet by mouth 1 (one) time each day. 30 packet 5 Active ursodioL (ACTIGALL) 300 mg capsule Take 1 capsule (300 mg total) by mouth 2 (two) times a day. 60 each 5 5 11/04/19 25 Active oxyCODONE (ROXICODONE) 5 mg immediate release tablet Take 1 tablet (5 mg total) by mouth every 6 (six) hours if needed for severe pain. Max Daily Amount: 20 mg 12 tablet 5 Active simethicone (MYLICON) 80 mg chewable tablet Chew 1 tablet (80 mg total) every 6 (six) hours if needed for flatulence. 30 tablet 5 Active polyethylene glycol (MIRALAX) 17 gram packet Take 17 g by mouth 1 (one) time each day. 510 g 5 08/14/19 25 Active simethicone (MYLICON) 80 mg chewable tablet Chew 1 tablet (80 mg total) every 6 (six) hours if needed for flatulence. 30 tablet 5 07/15/19 25 Discontinued Active Problems Problem Noted Date Diagnosed Date Obesity, Class III, BMI 40-49.9 (morbid obesity) 05/22/2024 Gastroesophageal reflux disease 02/18/2024 Class 2 obesity with body ma ss index (BMI) of 37.0 to 37.9 in adult 01/01/2024 Resolved Problems Problem Noted Date Diagnosed Date Resolved Date Hiatal hernia 02/18/2024 05/23/2024 Encounters Date Type Department Care Team Description 07/14/2024 10:30 AM EDT Office Visit Bariatric Surgery [address] [phone] Anne Dwyer MD S/P gastric bypass (Primary Dx); Obesity, Class II, BMI 35-39.9; Constipation, unspecified constipation type; Dizziness; Increased thirst; Nausea and vomiting, unspecified vomiting type 06/19/2024 12:30 PM EDT Telemedicine Bariatric Surgery [address] [phone] Class 2 obesity with body mass index (BMI) of 37.0 to 37.9 in adult, unspecified obesity type, unspecified whether serious comorbidity present (Primary Dx) 06/05/2024 10:30 AM EST Office Visit Bariatric Surgery [address] [phone] Anne Dwyer MD S/P gastric bypass (Primary Dx); Obesity, Class II, BMI 35-39.9 05/29/2024 Telephone Bariatric Surgery [address] [phone] Lisa Verma RN 05/22/2024 11:00 AM EST - 05/22/2024 2:30 PM EST Surgery [facility] Main OR [address] [place] [phone] Anne Dwyer MD DAVINCI GASTRIC BYPASS [[id number] (CPT??)] 05/22/2024 10:28 AM EST Anesthesia Event [facility] Main OR [address] [place] [phone] Angela Nelson MD 05/22/2024 9:21 AM EST - 05/23/2024 7:10 PM EST Hospital Encounter [facility] Medical Surgical Unit [address] [place] [phone] Anne Dwyer MD Discharge Disposition: Home or Self Care 05/20/2024 Telephone Bariatric Surgery [facility] [address] [phone] Lisa Verma RN 05/07/2024 1:45 PM EST Consult Bariatric Surgery [address] [phone] Anne Dwyer MD Obesity, Class III, BMI 40-49.9 (morbid obesity) (CMS/HCC V24, CMS/[facility] V28) (Primary Dx); Gastroesophageal reflux disease, unspecified whether esophagitis present; Hiatal hernia; Preop testing from Last 3 Months Surgical History Surgery [...] drink = 0.6 oz pur e alcohol) Interpersonal Safety Answer Date Record ed Physical Abuse 05/22/2024 Verbal Abuse 05/22/2024 Comments No Sex and Gender Information Value Date Recorded Sex Assigned at Female 05/07/2024 9:49 AM EST Legal Sex Female 11:02 AM EDT Gender Identity Female 05/07/2024 9:51 AM EST Sexual Orientation Straight 05/07/2024 9: 49 AM EST Obstetrics History Last Filed Vital Signs Vital Sign Reading Time Taken Comments Blood Pressure 125/77 07/14/2024 10:21 AM EDT Pulse 71 07/14/2024 10:21 AM EDT Temperature 36.5 ??C (97.7 ??F) 07/14/2024 10:21 AM E DT Respiratory Rate 16 05/23/2024 3:20 PM EST Oxygen Saturation 99% 06/05/2024 10:16 AM EST Inhaled Oxygen Concentration - - Weight 101 kg (222 lb) 07/14/2024 10:21 AM EDT Height 167.6 cm (5' 6 ) 07/14/2024 10:21 AM EDT Body Mass Index 35.83 07/14/2024 10:21 AM EDT Plan of Treatment Upcoming Encounters Date Type Department Care Team (Late st Contact Info) Description 08/13/2024 10:30 AM EDT Office Visit Bariatric Surgery [facility] [address] [phone] Anne Dwyer MD [address] [phone] 08/19/2024 12:30 PM EDT Telemedicine Bariatric Surgery [facility] [address] [phone] [phone] Health Maintenance Due Date Last Done Comments [...] age to complete this topic Meningococcal B Vaccine Aged Out No l onger eligible based on patient's age to complete [...] Diagnosis Comments CBC WITH AUTO DIFFERENTIAL Routine 07/21/2024 7:46 AM EDT S/P gastric bypass CBC AND DIFFERENTIAL Routine 07/21/2024 7:46 AM EDT S/P gastric bypass COMPREHENSIVE METABOLIC PANEL Routine 07/21/2024 7:46 AM EDT S/P gastric bypass FOLATE Routine 07/21/2024 7:46 AM EDT S/P gastric bypass IRON AND TIBC Routine 07/21/2024 7:46 AM EDT S/P gastric bypass VITAMIN B12 Routine 07/21/2024 7:46 AM EDT S/P gastric bypass VITAMIN D 25 HYDROXY Routine 07/21/2024 7:46 AM EDT S/P gastric bypass PARATHYROID HORMONE INTACT Routine 07/21/2024 7:46 AM EDT S/P gastric bypass CBC WITH AUTO DIFFERENTIAL Routine 05/23/2024 6:33 AM EST PHOSPHORUS Routine 05/23/2024 6:33 AM EST MAGNESIUM Routine 05/23/2024 6:33 AM EST BASIC METABOLIC PANEL Routine 05/23/2024 6:33 AM EST CBC AND DIFFERENTIAL Routine 05/23/2024 6:33 AM EST POCT GLUCOSE BLOOD Routine 05/22/2024 7: 57 PM EST OXYGEN THERAPY, ADULT Routine 05/22/2024 2:40 PM EST OXYGEN THERAPY, ADULT Routine 05/22/2024 2:40 PM EST TH AN ENDOTRACHEAL(NO CHARGE) Routine 05/22/2024 10:56 AM EST [place] LAPAROSCOPY SURG REPAIR PARAESOPHAGEAL HERNIA INCL FUNDOPLASTY WO MESH 05/22/2024 10:27 AM EST Class 3 severe obesity due to excess calories without serious comorbidity with body mass index (BMI) of 40.0 to 44.9 in adult (CMS/HCC V24, CMS/HCC V28) Gastroesophageal reflux disease, unspecified whether esophagitis present Hiatal hernia OH LAP SURG GASTRIC REST PROC W GSTR BYPASS & DON-EN-Y GASTROENTEROSTOMY 05/22/2024 10:27 AM EST Class 3 severe obesity due to excess calories without serious comorbidity with body mass index (BMI) of 40.0 to 44.9 in adult (CMS/HCC V24, CMS/HCC V28) Gastroesophageal reflux disease, unspecified whether esophagitis present Hiatal hernia CBC WITH AUTO DIFFERENTIAL Routine 05/07/2024 9:55 AM EST Class 3 severe obesity due to excess calories without serious comorbidity with body mass index (BMI) of 40.0 to 44.9 in adult (CMS/HCC V24, CMS/[facility] V28) BASIC METABOLIC PANEL Routine 05/07/2024 9:55 AM EST Class 3 severe obesity due to excess calories without serious comorbidity with body mass index (BMI) of 40.0 to 44.9 in adult ([facility] V24, CMS/[facility] V28) CBC AND DIFFERENTIAL Routine 05/07/2024 9:55 AM EST Class 3 severe obesity due to excess calories without serious comorbidity with body mass index (BMI) of 40.0 to 44.9 in adult ([facility] V24, CMS/[facility] V28) PROTHROMBIN TIME WITH INR Routine 2024 9:55 AM EST Class 3 severe obesity due to excess calories without serious comorbidity with body mass index (BMI) of 40.0 to 44.9 in adult (CMS/[facility] V24, CMS/[facility] V28) TYPE AND SCREEN Routine 05/07/2024 9:55 AM EST Class 3 severe obesity due to excess calories without serious comorbidity with body mass index (BMI) of 40.0 to 44.9 in adult ([facility] V24, CMS/[facility] V28) NELSON URINE CULTURE TUBE Routine 05/07/19 25 9:55 AM EST Class 3 severe obesity due to excess calories without serious comorbidity with body mass index (BMI) of 40.0 to 44.9 in adult ([facility] V24, CMS/[facility] V28) URINALYSIS WITH REFLEX MICROSCOPIC AND CULTURE Routine 05/07/2024 9:55 AM EST Class 3 severe obesity due to excess calories without serious comorbidity with body mass index (BMI) of 40.0 to 44.9 in adult ([facility] V24, CMS/[facility] V28) URINALYSIS WITH REFLEX MICROSCOPIC AND CULTURE Routine 05/07/2024 9:55 AM EST Class 3 severe obesity due to excess calories without serious comorbidity with body mass index (BMI) of 40.0 to 44.9 in adult (CMS/[facility] V24, CMS/[facility] V28) ECG 12-LEAD Routine 05/07/2024 9:43 AM EST Class 3 severe obesity due to excess calories without serious comorbidity with body mass index (BMI) of 40.0 to 44.9 in adult ([facility] V24, [facility] V28) LIPID PANEL Routine 06/14/2023 from Last 3 Months or Most Recently Relevant to Health Maintenance Results * (ABNORMAL) CBC auto differential (07/21/2024 7:46 AM EDT) Only the most recent of3 resultswithin the time period is included. [facility] WBC 6.9 4.8 - 10.8 K/mcL LAB HEMETOLOGY METHOD 07/21/2024 9:56 AM [facility] RBC 4.60 3.80 - 4.80 M/mcL LAB HEMETOLOGY METHOD 07/21/2024 9:56 AM [facility] Hemoglobin 12.6 11.5 - 16.0 g/dL LAB HEMETOLOGY METHOD 07/21/2024 9:56 AM [facility] Hematocrit 40.1 35.0 - 47.0 % LAB HEMETOLOGY METHOD 07/21/2024 9:56 AM [facility] MCV 87.6 79.0 - 98.0 FL LAB HEMETOLOGY METHOD 07/21/2024 9:56 AM [facility] MCH 27.5 27.0 - 32.0 pcg LAB HEMETOLOGY METHOD 07/21/2024 9:56 AM [facility] MCHC 31.4(L) 32.0 - 37.0 g/dL LAB HEMETOLOGY METHOD 07/21/2024 9:56 AM [facility] RDW 17.7(H) 11.0 - 15.0 % LAB HEMETOLOGY METHOD 07/21/2024 9:56 AM [facility] Platelets 292 130 - 400 K/mcL LAB HEMETOLOGY METHOD 07/21/2024 9:56 AM [facility] MPV 11.3(H) 7.0 - 11.0 FL LAB HEMETOLOGY METHOD 07/21/2024 9:56 AM [facility] NRBC 0.0 <1.0 % LAB HEMETOLOGY METHOD 07/21/2024 9:56 AM [facility] NRBC Absolute 0.00 <0.10 K/mcL LAB HEMETOLOGY METHOD 07/21/2024 9:56 AM [facility] Neutrophils Relative 55.7 % LAB HEMETOLOGY METHOD 07/21/2024 9:56 AM [facility] Lymphocytes Relative 34.2 % LAB HEMETOLOGY METHOD 07/21/2024 9:56 AM [facility] Monocytes Relative 8.4 % LAB HEMETOLOGY METHOD 07/21/2024 9:56 AM [facility] Eosinophils Relative 0.4 % LAB HEMETOLOGY METHOD 07/21/2024 9:56 AM [facility] Basophils Relative 0.9 % LAB HEMETOLOGY METHOD 07/21/2024 9:56 AM [facility] Immature Granulocytes Relative 0.4 % LAB HEMETOLOGY METHOD 07/21/2024 9:56 AM [facility] Neutrophils Absolute 3.85 1.50 - 7.00 K/mcL LAB HEMETOLOGY METHOD 07/21/2024 9:56 AM [facility] Lymphocytes Absolute 2.36 1.00 - 5.00 K/mcL LAB HEMETOLOGY METHOD 07/21/2024 9:56 AM [facility] Monocytes Absolute 0.58 0.20 - 1.00 K/mcL LAB HEMETOLOGY METHOD 07/21/2024 9:56 AM [facility] Eosinophils Absolute 0.03 0.00 - 0.50 K/mcL LAB HEMETOLOGY METHOD 07/21/2024 9:56 AM EDT [facility] Basophils Absolute 0.06 0.00 - 0.20 K/mcL LAB HEMETOLOGY METHOD 07/21/2024 9:56 AM EDT [facility] Immature Granulocytes Absolute 0.03 0.00 - 0.03 K/mcL LAB HEMETOLOGY METHOD 07/21/2024 9:56 AM EDT [facility] Blood Venous blood specimen / Unknown Venipuncture / Unknown 07/21/2024 7:46 AM EDT 07/21/2024 9:47 AM EDT us Anne Dwyer MD LAB BLOOD ORDERABLES Fi nal Result [facility] [address] [place] [address], [place] [phone] * (ABNORMAL) Iron and TIBC (07/21/2024 7:46 AM EDT) Iron 45 40 - 150 mcg/dL LAB CHEMISTRY METHOD 07/21/2024 10:52 AM EDT [facility] TIBC 338 250 - 450 mcg/dL LAB CHEMISTRY METHOD 07/21/2024 10:52 AM EDT [facility] Iron Saturation 13(L) 15 - 50 % LAB CHEMISTRY METHOD 07/21/2024 10:52 AM EDT [facility] Blood Venous blood specimen / Unknown Venipuncture / Unknown 07/21/2024 7:46 AM EDT 07/21/2024 9:42 AM EDT us Anne Dwyer MD LAB BLOOD ORDERABLES Fi nal Result [facility] [address] [place] [address], [place] [phone] * Vitamin D 25 hydroxy (07/21/2024 7:46 AM EDT) Vit D, 25-Hydroxy 42.9 30.0 - 80.0 ng/mL LAB CHEMISTRY METHOD 07/21/2024 11:44 AM EDT [facility] Blood Venous blood specimen / Unknown Venipuncture / Unknown 07/21/2024 7:46 AM EDT 07/21/2024 9:42 AM EDT us Anne Dwyer MD LAB BLOOD ORDERABLES Fi nal Result Performing Organization Address [facility]/ZIP Co de Phone Number [facility] [address] [place] [address], [place] [phone] * Parathyroid hormone intact (07/21/2024 7:46 AM EDT) PTH 28.7 18.5 - 88.0 pcg/mL LAB CHEMISTRY METHOD 07/21/2024 11:44 AM EDT [facility] Blood Venous blood specimen / Unknown Venipuncture / Unknown 07/21/2024 7:46 AM EDT 07/21/2024 9:42 AM EDT us Anne Dwyer MD LAB BLOOD ORDERABLES Fi nal Result Performing Organization Address City/[facility]/ZIP Co de Phone Number [facility] [address] [place] [address], [place] [phone] * Folate (07/21/2024 7:46 AM EDT) Folate 14.1 2.8 - 17.0 ng/ml LAB CHEMISTRY METHOD 07/21/2024 11:13 AM EDT [facility] Blood Venous blood specimen / Unknown Venipuncture / Unknown 07/21/2024 7:46 AM EDT 07/21/2024 9:42 AM EDT us Anne Dwyer MD LAB BLOOD ORDERABLES Fi nal Result Performing Organization Address [facility]/ZIP Co de Phone Number [facility] [address] [place] [address], * (ABNORMAL) Vitamin B12 (07/21/2024 7:46 AM EDT) [facility] Vitamin B-12 1,263(H) 250 - 900 pcg/mL LAB CHEMISTRY METHOD 07/21/2024 11:13 AM EDT [facility] Blood Venous blood specimen / Unknown Venipuncture / Unknown 07/21/2024 7:46 AM EDT 07/21/2024 9:42 AM EDT Anne Dwyer MD LAB BLOOD ORDERABLES Fi nal Result Performing Organization Address [facility] Co de Phone Number [facility] [address] [place] [address], * Comprehensive metabolic panel (07/21/2024 7:46 AM EDT) [facility] Sodium 138 133 - 145 mmol/L LAB CHEMISTRY METHOD 07/21/2024 11:13 AM [facility] Potassium 3.8 3.5 - 5.5 mmol/L LAB CHEMISTRY METHOD 07/21/2024 11:13 AM [facility] Chloride 102 96 - 110 mmol/L LAB CHEMISTRY METHOD 07/21/2024 11:13 AM [facility] CO2 25 21 - 32 mmol/L LAB CHEMISTRY METHOD 07/21/2024 11:13 AM [facility] Anion Gap 11 3 - 11 LAB CHEMISTRY METHOD 07/21/2024 11:13 AM [facility] Glucose 77 70 - 100 mg/dL LAB CHEMISTRY METHOD 07/21/2024 11:13 AM [facility] BUN 6 5 - 25 mg/dL LAB CHEMISTRY METHOD 07/21/2024 11:13 AM [facility] Creatinine 0.79 0.50 - 1.10 mg/dL LAB CHEMISTRY METHOD 07/21/2024 11:13 AM [facility] eGFR 100 >=60 mL/min/1. 73m2 LAB CHEMISTRY METHOD 07/21/2024 11:13 AM [facility] Comment:Calculation based on the??Chronic Kidney Disease Epidemiology Collaboration (CKD-EPI) equation refit??without adjustment for race. BUN/Creatinine Ratio 7.6 LAB CHEMISTRY METHOD 07/21/2024 11:13 AM [facility] Calcium 9.3 8.5 - 10.5 mg/dL LAB CHEMISTRY METHOD 07/21/2024 11:13 AM [facility] AST (SGOT) 17 10 - 42 unit/L LAB CHEMISTRY METHOD 07/21/2024 11:13 AM [facility] ALT (SGPT) 16 10 - 60 unit/L LAB CHEMISTRY METHOD 07/21/2024 11:13 AM [facility] Alkaline Phosphatase 66 42 - 121 unit/L LAB CHEMISTRY METHOD 07/21/2024 11:13 AM [facility] Total Protein 7.5 6.0 - 8.0 g/dL LAB CHEMISTRY METHOD 07/21/2024 11:13 AM [facility] Albumin 3.4 3.2 - 5.0 g/dL LAB CHEMISTRY METHOD 07/21/2024 11:13 AM [facility] Total Bilirubin 0.5 0.0 - 1.4 mg/dL LAB CHEMISTRY METHOD 07/21/2024 11:13 AM [facility] Blood Venous blood specimen / Unknown Venipuncture / Unknown 07/21/2024 7:46 AM EDT 07/21/2024 9:42 AM EDT Anne Dwyer MD LAB BLOOD ORDERABLES Fi nal Result Performing Organization Address [facility]/ZIP Co de Phone Number [facility] [address] [place] [address], * Phosphorus (05/23/2024 6:33 AM EST) Phosphorus 3.1 2.5 - 4.5 mg/dL LAB CHEMISTRY METHOD 05/23/2024 8:41 AM EST [facility] Blood Venous blood specimen / Unknown Venipuncture / Unknown 05/23/2024 6:33 AM EST 05/23/2024 7:35 AM EST Brittany CARDOSO LAB BLOOD ORDERABLES Final Re sult Performing Organization Address [facility] Co de Phone Number [facility] [address] [place] [address], [place] [phone] * (ABNORMAL) Magnesium (05/23/2024 6:33 AM EST) [facility] Magnesium 1.6(L) 1.9 - 2.6 mg/dL LAB CHEMISTRY METHOD 05/23/2024 8:41 AM EST [facility] Blood Venous blood specimen / Unknown Venipuncture / Unknown 05/23/2024 6:33 AM EST 05/23/2024 7:35 AM EST Brittany CARDOSO LAB BLOOD ORDERABLES Final Re sult Performing Organization Address [facility]/ZIP Co de Phone Number [facility] [address] [place] [address], [place] [phone] * (ABNORMAL) Basic metabolic panel (05/23/2024 6:33 AM EST) Only the most recent of2 resultswithin the time period is included. Sodium 140 133 - 145 mmol/L LAB CHEMISTRY METHOD 05/23/2024 8:41 AM EST [facility] Potassium 3.9 3.5 - 5.5 mmol/L LAB CHEMISTRY METHOD 05/23/2024 8:41 AM [facility] Chloride 105 96 - 110 mmol/L LAB CHEMISTRY METHOD 05/23/2024 8:41 AM [facility] CO2 26 21 - 32 mmol/L LAB CHEMISTRY METHOD 05/23/2024 8:41 AM [facility] Anion Gap 9 3 - 11 LAB CHEMISTRY METHOD 05/23/2024 8:41 AM [facility] Glucose 110(H) 70 - 100 mg/dL LAB CHEMISTRY METHOD 05/23/2024 8:41 AM [facility] BUN 8 5 - 25 mg/dL LAB CHEMISTRY METHOD 05/23/2024 8:41 AM [facility] Creatinine 0.88 0.50 - 1.10 mg/dL LAB CHEMISTRY METHOD 05/23/2024 8:41 AM [facility] eGFR 88 >=60 mL/min/1. 73m2 LAB CHEMISTRY METHOD 05/23/2024 8:41 AM [facility] Comment:Calculation based on the??Chronic Kidney Disease Epidemiology Collaboration (CKD-EPI) equation refit??without adjustment for race. BUN/Creatinine Ratio 9.1 LAB CHEMISTRY METHOD 05/23/2024 8:41 AM [facility] Calcium 8.6 8.5 - 10.5 mg/dL LAB CHEMISTRY METHOD 05/23/2024 8:41 AM [facility] Blood Venous blood specimen / Unknown Venipuncture / Unknown 05/23/2024 6:33 AM EST 05/23/2024 7:35 AM EST us Brittany CARDOSO LAB BLOOD ORDERABLES Final Re sult [facility] [address] [place] [address], * (ABNORMAL) POCT Glucose, blood (05/22/2024 7:57 PM EST) Glucose POCT 106(H) 70 - 100 mg/dL 05/22/2024 7:58 PM EST [facility] Blood Capillary blood specimen / Unknown 05/22/2024 7:57 PM EST 05/22/2024 7:59 PM EST us Anne Dwyer MD LAB POINT OF CA RE TEST DOCKED DEVICE UNSOLICITED RESULTS Final Result [facility] [address] [place] [address], [place] [phone] * TH AN ENDOTRACHEAL(NO CHARGE) (05/22/2024 10:56 AM EST) Angela Knight MD - 05/22/2024 10:56 AM EST Angela Nelson MD ? 05/22/2024 10:58 AM General Information and Staff Patient location during procedure: OR Anesthesiologist: Angela Nelson MD Performed: anesthesiologist Performed by: Angela Nelson MD Authorized by: Angela Nelson MD ?? Intubation Urgency: elective Final Airway Details Successful airway: ETT Cuffed: yes Successful intubation technique: direct laryngoscopy Endotracheal tube insertion site: oral Blade: Jessica Blade size: #3 ETT size (mm): 7.0 Cormack-Lehane Classification: grade I - full view of glottis Placement verified by: chest auscultation and capnometry Measured from: lips ETT to lips (cm): 21 Number of attempts at approach: 1 Ventilation between attempts: BVM Number of other approaches attempted: 0Final airway type: endotracheal airway Indications and Patient Condition Indications for airway management: anesthesia Spontaneous ventilation: present Sedation level: Yes Preoxygenated: yes Soft Tissue Damage: No Dentition Unchanged: Yes Patient position: neutral MILS maintained throughout Mask difficulty assessment: 1 - vent by mask us Angela Nelson MD ANESTHESIA ORDERABLES Final Resu lt * Urinalysis with reflex microscopic and culture (05/07/2024 9:55 AM EST) Specific [place] Urine 1.023 1.003 - 1.030 LAB URINALYSIS - AUTOMATED METHOD 05/07/2024 10:53 AM [facility] pH, Urine 7.0 5.0 - 8.0 pH LAB URINALYSIS - AUTOMATED METHOD 05/07/2024 10:53 AM [facility] Leukocytes, Urine Negative Negative LAB URINALYSIS - AUTOMATED METHOD 05/07/2024 10:53 AM [facility] Nitrite, Urine Negative Negative LAB URINALYSIS - AUTOMATED METHOD 05/07/2024 10:53 AM [facility] Protein, Urine Negative <=Trace mg/dL LAB URINALYSIS - AUTOMATED METHOD 05/07/2024 10:53 AM [facility] Glucose, Urine Negative Negative mg/dL LAB URINALYSIS - AUTOMATED METHOD 05/07/2024 10:53 AM [facility] Ketones, Urine Negative Negative mg/dL LAB URINALYSIS - AUTOMATED METHOD 05/07/2024 10:53 AM [facility] Urobilinogen, Urine 0.2 0.2 - 1.0 mg/dL LAB URINALYSIS - AUTOMATED METHOD 05/07/2024 10:53 AM [facility] Bilirubin, Urine Negative Negative LAB URINALYSIS - AUTOMATED METHOD 05/07/2024 10:53 AM [facility] Blood, Urine Negative Negative LAB URINALYSIS - AUTOMATED METHOD 05/07/2024 10:53 AM [facility] Urine Urine specimen obtained by clean catch procedure / Unknown Non-blood Collection / Unknown 05/07/2024 9:55 AM EST 05/07/2024 10:33 AM EST us Cleo CARDOSO LAB URINE ORDERABLES Final R esult [facility] [address] [place] [address], [place] [phone] * Nelson urine culture tube (05/07/2024 9:55 AM EST) [facility] Extra Tube Hold for add-ons. 05/07/2024 12:01 PM EST [facility] Comment:Auto resulted. Urine Urine specimen obtained by clean catch procedure / Unknown Non-blood Collection / Unknown 05/07/2024 9:55 AM EST 05/07/2024 10:33 AM EST us Cleo CARDOSO LAB URINE ORDERABLES Final R esult Performing Organization Address City/[facility]/ZIP Co de Phone Number [facility] [address] [place] [address], [place] [phone] * Prothrombin time with INR (05/07/2024 9:55 AM EST) [facility] Protime 12.7 10.6 - 13.9 sec LAB COAGULATION METHOD 05/07/2024 11:11 AM [facility] INR 1.0 LAB COAGULATION METHOD 05/07/2024 11:11 AM [facility] Blood Venous blood specimen / Unknown Venipuncture / Unknown 05/07/2024 9:55 AM EST 05/07/2024 10:33 AM EST us Cleo CARDOSO LAB BLOOD ORDERABLES Final R esult [facility] [address] [place] [address], [place] [phone] * Type and screen (05/07/2024 9:55 AM EST) [facility] ABO Group A 05/07/2024 1:12 PM [facility] Rh Type Positive 05/07/2024 1:12 PM [facility] Antibody Screen Negative 05/07/2024 1:12 PM EST [facility] Blood Venous blood specimen / Unknown Venipuncture / Unknown 05/07/2024 9:55 AM EST 05/07/2024 10:33 AM EST [facility] BLOOD BANK TEST ORDERABL ES Final Result Performing Organization Address [facility]/ZIP Co de Phone Number [facility]) [facility] [address] [place] [address], * ECG 12 lead (05/07/2024 9:43 AM EST) Ventricular Rate ECG 80 BPM GEMUSE Atrial Rate 80 BPM GEMUSE P-R Interval 142 ms GEMUSE QRS Duration 80 ms GEMUSE Q-T Interval 364 ms GEMUSE QTc 419 ms GEMUSE P Wave Barto 30 degrees GEMUSE R Barto 11 degrees GEMUSE T Barto 19 degrees GEMUSE ECG Interpretation Normal sinus rhythm No previous ECGs available Confirmed by LISA BERNARD ([id number]) on 05/08/2024 5:01:38 AM GEMUSE 05/07/2024 9:43 AM EST 05/08/2024 5:01 AM EST [facility] ECG ORDERABLES Final Result Performing Organization Address City/[facility] Co de Phone Number GEMUSE * (ABNORMAL) Lipid panel (06/14/2023) LDL/HDL Ratio 4 0 - 4 Triglycerides 263(A) 0 - 150 mg/dL Cholesterol 173 0 - 200 mg/dL HDL 40 >=40 mg/dL LDL Cholesterol 81 0 - 100 mg/dL Blood Venous blood specimen / Unknown Historical Provider LAB BLOOD ORDERABLES Silvia l Result from Last 3 Months or Most Recently Relevant to Health Maintenance Insurance [facility] Advance Directives * Full Code - Default (Latest Code Status on File) Date Activated Date Inactivated Comments 05/22/2024 2:47 PM 05/23/2024 9:16 PM This is orde r is used when code status has not been discussed with the patient, or code status is otherwise unknown/unconfirmed To update the patient's code status, place a code status order. Do not modify or discontinue any currently active code status orders. * Full Code - Default Date Activated Date Inactivated Comments 05/22/2024 2:40 PM 05/22/2024 2:47 PM This is orde r is used when code status has not been discussed with the patient, or code status is otherwise unknown/unconfirmed To update the patient's code status, place a code status order. Do not modify or discontinue any currently active code status orders. Care Teams Rice Farmworker Relationship Specialty Start Date End Date Niall Gonsalves PA [address] [place] [phone] PCP - General Physician Lieutenant Fire Fighter 07/10/24
[2024-07-21 17:15] VITALS: BP 109/67; PULSE 75; RESP 16; TEMP 36.6; O2SAT 100
[2024-07-21 17:36] LABS: Appearance Urine Clear; Color Urine Dark Yellow; Glucose Urine UA Negative (Negative); Leukocyte Esterase Urine Negative (Negative); Nitrite Urine Negative (Negative); Specific Gravity - Urine >= 1.030 (1.005-1.025); UMIC TRIGGER UACC YES; Urine Blood Negative (Negative); Urine Ketones >=160 mg/dL (Negative); Urine Protein 30 (1+) mg/dL (Neg-Trace)
[2024-07-21 17:59] LABS: Bacteria Urine Trace (None Seen); Hyaline Casts Urine 0-2 /LPF (0-2); WBC Urine 0-5 /HPF (0-5)
[2024-07-21] MEDS: 0.9 % Sodium Chloride 1,000 ML 999 ML IV (19:37)
[2024-07-21 19:42] VITALS: BP 116/66; PULSE 73; RESP 16; TEMP 36.8; O2SAT 100
[2024-07-21] MEDS: ondansetron HCL 4 MG/2 ML VIAL IVPUSH (20:56)
[2024-07-21] MEDS: Famotidine/PF 20 MG/2 ML VIAL IVPUSH (20:58)
[2024-07-21] MEDS: Lactated Ringers 1,000 ML 999 ML IV (22:39)
[2024-07-21] MEDS: Diatrizoate Meglumine, Sodium 30 ML SOLUTION PO (23:00)
[2024-07-22 01:37] VITALS: BP 111/61; PULSE 80; RESP 18; TEMP 36.7; O2SAT 100
[2024-07-22 01:39] VITALS: BP 111/61; PULSE 80; RESP 18; TEMP 36.7; O2SAT 100
== END 2024-07-22 01:39 | disposition home or self-care (01) ==
PROVIDERS: Registered Nurse Emergency; Emergency Provider Emergency Medicine; PCP Physician Assistant
DX: R10.13 Epigastric pain (principal); R11.0 Nausea; R10.2 Pelvic and perineal pain; Z98.84 Bariatric surgery status; Z79.899 Other long term (current) drug therapy
CPT/HCPCS: 36415; 74176; 74177; 80053; 81001; 83690; 83735; 84702; 85025; 85610; 96361; 96374; 96375; 99284; J1308; J2405; J7120

== ENCOUNTER → 2024-07-21 19:53 | Outpatient (BNV) | payer OTHER, SELFPAY | PROVIDERS: Emergency Provider Emergency Medicine; PCP Physician Assistant; Visit Provider Student in an Organized Health Care Education/Training Program | DX: N83.9 Noninflammatory disorder of ovary, fallopian tube and broad ligament, unspecified (principal); R10.13 Epigastric pain; Z98.84 Bariatric surgery status | CPT/HCPCS: 74177 ==

== ENCOUNTER 2024-10-06 07:25 | Outpatient (REF) | payer OTHER, SELFPAY ==
[2024-10-06 08:10] LABS: Hemoglobin A1C 99.7075 umol/L; Total Hemoglobin (HGBA1C) 3129.9285 umol/L
[2024-10-06 09:00] LABS: Alanine Aminotransferase 21 U/L (0-31); Albumin Level 4.1 g/dL (3.5-5.0); Alkaline Phosphatase 48 U/L (39-117); Anion Gap 10 (12-20); Aspartate Amino Transferase 28 U/L (5-31); Blood Urea Nitrogen 9 mg/dL (9-16); Calcium 9.0 mg/dL (8.4-10.2); Carbon Dioxide 24 mmol/L (22-29); Chloride 111 mmol/L (96-108); Cholesterol 145 mg/dL (<200); Estimated Glomerular Filt Rate > 60; HDL Cholesterol 38 mg/dL (>40); Potassium 3.2 mmol/L (3.3-5.1); Sodium 142 mmol/L (135-145); Total Protein 7.1 g/dL (6.5-8.0); Triglycerides 85 mg/dL (<150)
[2024-10-06 09:06] LABS: Free T4 (Free Thyroxine) 0.80 ng/dL (0.71-1.85); Thyroid Stimulating Hormone 3.42 uIU/mL (0.32-4.0)
== END 2024-10-06 07:26 | disposition home or self-care (01) ==
LOC: HO.LAB 07:25
PROVIDERS: Internal Medicine; PCP Physician Assistant; Visit Provider Physician Assistant
DX: R73.02 Impaired glucose tolerance (oral) (principal); E03.9 Hypothyroidism, unspecified; E78.5 Hyperlipidemia, unspecified; R79.89 Other specified abnormal findings of blood chemistry
CPT/HCPCS: 36415; 80053; 80061; 83036; 84439; 84443

== ENCOUNTER 2024-10-08 09:23 | Outpatient (AMB) | payer OTHER, SELFPAY ==
--- OUTSIDE RECORDS SUMMARY | 2024-10-08 09:47 | XMS_ITS | Encounter Summary ---
Author Organization [employer] Address [address] [place] [address] Care Team Providers Care House Rn Name Role Phone Unavailable Primary Care Provider Unavailabl e Encounter Details Date Type Department Care Team (Latest Contact Info) Description 06/12/2018 Abstract [facility] CONVERSIONS Dental, Provider, DDS Social [...]
--- OUTSIDE RECORDS SUMMARY | 2024-10-08 09:47 | XMS_ITS | Clinical Summary ---
Author Organization [facility] Address [address] [place] [address] Phone Care Team Providers Care Dandy Operator Name Role Phone Niall Gonsalves Primary Care Provider [phone] Allergies No known active allergies Medications levothyroxine (SYNTHROID, LEVOTHROID) 25 mcg tablet Take by mouth 1 (one) time each day before breakfast. Active wheat dextrin 3 gram/3.5 gram powder in packet Take 1 packet by mouth 1 (one) time each day. 30 packet 5 Active ursodioL (ACTIGALL) 300 mg capsule Take 1 capsule (300 mg total) by mouth 2 (two) times a day. 60 each 5 5 11/04/19 25 Active simethicone (MYLICON) 80 mg chewable tablet Chew 1 tablet (80 mg total) every 6 (six) hours if needed for flatulence. 30 tablet 5 Active vitamin A 3,000 mcg (10,000 unit) capsule Take 1 capsule (10,000 Units total) by mouth 1 (one) time each day. 30 capsule 2 5 10/24/19 25 Active pyridoxine (B-6) 250 mg tablet Take 1 tablet (250 mg total) by mouth 1 (one) time each day. 30 tablet 2 5 10/24/19 25 Active pantoprazole (PROTONIX) 40 mg EC tablet TAKE 1 TABLET BY MOUTH EVERY DAY BEFORE BREAKFAST DO NOT CRUSH CHEW OR SPLIT 90 tablet Active thiamine 100 mg tablet Take 2 tablets (200 mg total) by mouth 1 (one) time each day. 180 tablet 2 Active Gavilax 17 gram/dose oral powder TAKE 17 GRAMS BY MOUTH ONCE EVERY DAY 510 g Active Active Problems Problem Noted Date Diagnosed Date Dehydration 07/25/2024 S/P bariatric surgery 07/25/2024 Obesity, Class III, BMI 40-49.9 (morbid obesity) 05/22/2024 Gastroesophageal reflux disease 02/18/2024 Class 2 obesity with body ma ss index (BMI) of 37.0 to 37.9 in adult 01/01/2024 Resolved Problems Problem Noted Date Diagnosed Date Resolved Date Unable to eat 08/10/2024 08/11/2024 Hiatal hernia 02/18/2024 05/23/2024 Encounters Date Type Department Care Team Description 08/20/2024 9:45 AM EDT - 08/20/2024 11:59 PM EDT Hospital Encounter [address] [phone] S/P bariatric surgery (Primary Dx); Dehydration; Class 2 obesity due to excess calories without serious comorbidity with body mass index (BMI) of 37.0 to 37.9 in adult Discharge Disposition: Home or Self Care 08/13/2024 10:30 AM EDT Office Visit Bariatric Surgery - [place] [facility] [address] [place] [phone] Anne Dwyer MD S/P gastric bypass (Primary Dx); Obesity, Class I, BMI 30-34.9; Vitamin deficiency 08/10/2024 2:13 PM EDT - 08/11/2024 3:57 PM EDT Hospital Encounter [facility] Unit [address] [place] [phone] Jermaine Enriquez MD White, Cullen D, DO Intractable vomiting (Primary Dx); History of Megan-en-Y gastric bypass Discharge Disposition: Home or Self Care 08/06/2024 10:19 AM EDT - 08/06/2024 11:59 PM EDT Hospital Encounter [address] [place] [phone] Anne Dwyer MD S/P bariatric surgery (Primary Dx); Dehydration; Class 2 obesity due to excess calories without serious comorbidity with body mass index (BMI) of 37.0 to 37.9 in adult Discharge Disposition: Home or Self Care 08/04/2024 Telephone Bariatric Surgery - [address] [phone] Mitzy Mcghee CO 08/01/2024 Telephone TH HISTORIC ENCOUNTERS EASTERN CONVERSION ONLY Radha Robles RN 07/29/2024 7:54 AM EDT - 07/29/2024 11:59 PM EDT Hospital Encounter [facility] Infusion Center [address] [place] [phone] Anne Dwyer MD S/P bariatric surgery (Primary Dx); Dehydration; Class 2 obesity due to excess calories without serious comorbidity with body mass index (BMI) of 37.0 to 37.9 in adult Discharge Disposition: Home or Self Care 07/24/2024 Telephone Bariatric Surgery [address] [phone] Sheron Lozano MD Advice Only (IV fluids) 07/22/2024 3:30 PM EDT Office Visit Bariatric Surgery [address] [phone] Anne Dwyer MD S/P gastric bypass (Primary Dx); Increased thirst; Nausea and vomiting, unspecified vomiting type; Obesity, Class II, BMI 35-39.9 07/21/2024 7:45 AM EDT Lab Draw Station - [address] [phone] S/P gastric bypass 07/14/2024 10:30 AM EDT Office Visit Bariatric Surgery [address] [phone] Anne Dwyer MD S/P gastric bypass (Primary Dx); Obesity, Class II, BMI 35-39.9; Constipation, unspecified constipation type; Dizziness; Increased thirst; Nausea and vomiting, unspecified vomiting type from Last 3 Months Surgical History Surgery [...] Safety Answer Date Record ed Physical Abuse 08/11/2024 Verbal Abuse 08/11/2024 Comments No Sex and Gender Information Value Date Recorded Sex Assigned at Female 05/07/2024 9:49 AM EST Legal Sex Female 11:02 AM EDT Gender Identity Female 05/07/2024 9:51 AM EST Sexual Orientation Straight 05/07/2024 9: 49 AM EST Obstetrics History Last Filed Vital Signs Vital Sign Reading Time Taken Comments Blood Pressure 98/73 08/20/2024 9:52 AM EDT Pulse 71 08/20/2024 9:52 AM EDT Temperature 36.4 C (97.6 F) 08/20/2024 9:52 AM EDT Respiratory Rate 18 08/20/2024 9:52 AM EDT Oxygen Saturation 100% 08/20/2024 9:52 AM EDT Inhaled Oxygen Concentration - - Weight 93 kg (205 lb) 08/13/2024 10:29 AM EDT Height 167.6 cm (5' 6 ) 08/13/2024 10:29 AM EDT Body Mass Index 33.09 08/13/2024 10:29 AM EDT Plan of Treatment Upcoming Encounters Date Type Department Care Team (Late st Contact Info) Description 11/14/2024 11:15 AM EDT Office Visit Bariatric Surgery - [place] 175 [facility] [address] [place] [phone] Anne Dwyer MD 175 [facility] [address] [place] [phone] Health Maintenance Due Date Last Done Comments DTaP,Tdap,and Td Vaccines (1 - Tdap) 06/17/2007 Hepatitis B Vaccines (1 of 3 - 19+ 3-dose series) 06/17/2007 Cervical Cancer Screening: Pap Smear 2009 Depression Screening 10/26/2023 HIV Screening 10/26/2023 Hepatitis C Screening 10/26/2023 Social Influencers of Health Screening 10/26/2023 COVID-19 Vaccine ( season) 2023 03/08/2021, 08/17/2020, 07/20/2020 Influenza Vaccine (#1) 2024 , 03/14/2022, 03/08/2021, Additional history exists Cholesterol Screening (Lipid Panel) 06/13/2028 06/14/2023 HIB Vaccines Aged Out No longer eligi [...] 5 Years) and At-Risk Patients (6 to 49 Years) Aged Out No longer eligible based on patient's age to complete this topic RSV Immunization Patients Under 20 months Aged Out No longer eligible based on patient's age to complete this topic Varicella Vaccines Aged Out No longer eligible based on patient's age to complete this topic Procedures Procedure Name Priority Date/Time Associated Diagnosis Comments CBC WITH AUTO DIFFERENTIAL Routine 08/11/2024 5:53 AM EDT COMPREHENSIVE METABOLIC PANEL Routine 08/11/2024 5:53 AM EDT CBC AND DIFFERENTIAL Routine 08/11/2024 5:53 AM EDT LT BLUE - NA CITRATE Routine 08/10/2024 7:57 PM EDT EXTRA TUBES Routine 08/10/2024 7:57 PM EDT COPPER, SERUM Routine 08/10/2024 7:56 PM EDT SELENIUM SERUM Routine 08/10/2024 7:56 PM EDT ZINC Routine 08/10/2024 7:56 PM EDT VITAMIN D 1,25 DIHYDROXY Routine 08/10/2024 7:56 PM EDT VITAMIN B12 AND FOLATE Routine 7:56 PM EDT VITAMIN B6 Routine 08/10/2024 7:55 PM EDT VITAMIN B1 Routine 08/10/2024 7:55 PM EDT VITAMIN A Routine 08/10/2024 7:[address] ABDOMEN PELVIS W CONTRAST STAT 08/10/2024 4:44 PM EDT CBC WITH AUTO DIFFERENTIAL STAT 08/10/2024 2:03 PM EDT TYPE AND SCREEN STAT 08/10/2024 2:03 PM EDT COMPREHENSIVE METABOLIC PANEL STAT 08/10/2024 2:03 PM EDT CBC AND DIFFERENTIAL STAT 08/10/2024 2:03 PM EDT CBC WITH AUTO DIFFERENTIAL Routine 07/21/2024 7:46 AM EDT S/P gastric bypass CBC AND DIFFERENTIAL Routine 07/21/2024 7:46 AM EDT S/P gastric bypass COMPREHENSIVE METABOLIC PANEL Routine 07/21/2024 7:46 AM EDT S/P gastric bypass COPPER, SERUM Routine 07/21/2024 7:46 AM EDT S/P gastric bypass FOLATE Routine 07/21/2024 7:46 AM EDT S/P gastric bypass IRON AND TIBC Routine 07/21/2024 7:46 AM EDT S/P gastric bypass SELENIUM SERUM Routine 07/21/2024 7:46 AM EDT S/P gastric bypass VITAMIN A Routine 07/21/2024 7:46 AM EDT S/P gastric bypass VITAMIN B1 Routine 07/21/2024 7:46 AM EDT S/P gastric bypass VITAMIN B12 Routine 07/21/2024 7:46 AM EDT S/P gastric bypass VITAMIN B6 Routine 07/21/2024 7:46 AM EDT S/P gastric bypass VITAMIN D 25 HYDROXY Routine 07/21/2024 7:46 AM EDT S/P gastric bypass ZINC Routine 07/21/2024 7:46 AM EDT S/P gastric bypass PARATHYROID HORMONE INTACT Routine 07/21/2024 7:46 AM EDT S/P gastric bypass LIPID PANEL Routine 06/14/2023 from Last 3 Months or Most Recently Relevant to Health Maintenance Results * (ABNORMAL) CBC auto differential (08/11/2024 5:53 AM EDT) Only the most recent of3 resultswithin the time period is included. WBC 7.9 4.8 - 10.8 K/[facility] LAB HEMETOLOGY METHOD 08/11/2024 6:57 AM EDT [facility] RBC 4.60 3.80 - 4.80 M/mcL LAB HEMETOLOGY METHOD 08/11/2024 6:57 AM [facility] Hemoglobin 12.5 11.5 - 16.0 g/dL LAB HEMETOLOGY METHOD 08/11/2024 6:57 AM [facility] LAB Hematocrit 40.0 35.0 - 47.0 % LAB HEMETOLOGY METHOD 08/11/2024 6:57 AM [facility] LAB MCV 87.0 79.0 - 98.0 FL LAB HEMETOLOGY METHOD 08/11/2024 6:57 AM [facility] LAB MCH 27.2 27.0 - 32.0 pcg LAB HEMETOLOGY METHOD 08/11/2024 6:57 AM [facility] LAB MCHC 31.3(L) 32.0 - 37.0 g/dL LAB HEMETOLOGY METHOD 08/11/2024 6:57 AM [facility] LAB RDW 17.4(H) 11.0 - 15.0 % LAB HEMETOLOGY METHOD 08/11/2024 6:57 AM [facility] LAB Platelets 08/11/2024 6:57 AM [facility] LAB Comment:Not measured. Platel ets appear adequate but clumped MPV 11.8(H) 7.0 - 11.0 FL LAB HEMETOLOGY METHOD 08/11/2024 6:57 AM [facility] LAB NRBC 0.0 <1.0 % LAB HEMETOLOGY METHOD 08/11/2024 6:57 AM [facility] LAB NRBC Absolute 0.00 <0.10 K/mcL LAB HEMETOLOGY METHOD 08/11/2024 6:57 AM [facility] LAB Neutrophils Relative 43.3 % LAB HEMETOLOGY METHOD 08/11/2024 6:57 AM [facility] Lymphocytes Relative 46.1 % LAB HEMETOLOGY METHOD 08/11/2024 6:57 AM [facility] Monocytes Relative 8.6 % LAB HEMETOLOGY METHOD 08/11/2024 6:57 AM [facility] Eosinophils Relative 0.6 % LAB HEMETOLOGY METHOD 08/11/2024 6:57 AM [facility] Basophils Relative 0.8 % LAB HEMETOLOGY METHOD 08/11/2024 6:57 AM [facility] Immature Granulocytes Relative 0.6 % LAB HEMETOLOGY METHOD 08/11/2024 6:57 AM [facility] LAB Neutrophils Absolute 3.42 1.50 - 7.00 K/mcL LAB HEMETOLOGY METHOD 08/11/2024 6:57 AM [facility] LAB Lymphocytes Absolute 3.65 1.00 - 5.00 K/mcL LAB HEMETOLOGY METHOD 08/11/2024 6:57 AM [facility] Monocytes Absolute 0.68 0.20 - 1.00 K/mcL LAB HEMETOLOGY METHOD 08/11/2024 6:57 AM [facility] Eosinophils Absolute 0.05 0.00 - 0.50 K/mcL LAB HEMETOLOGY METHOD 08/11/2024 6:57 AM [facility] Basophils Absolute 0.06 0.00 - 0.20 K/mcL LAB HEMETOLOGY METHOD 08/11/2024 6:57 AM [facility] LAB Immature Granulocytes Absolute 0.05(H) 0.00 - 0.03 K/mcL LAB HEMETOLOGY METHOD 08/11/2024 6:57 AM [facility] LAB Blood Venous blood specimen / Unknown Venipuncture / Unknown 08/11/2024 5:53 AM EDT 08/11/2024 6:14 AM EDT us Faizan CARDOSO LAB BLOOD ORDERABLES Final Re sult [facility] [address] [place] [address], * (ABNORMAL) Comprehensive metabolic panel (08/11/2024 5:53 AM EDT) Only the most recent of3 resultswithin the time period is included. Sodium 136 133 - 145 mmol/L LAB CHEMISTRY METHOD 08/11/2024 7:03 AM [facility] Potassium 3.9 3.5 - 5.5 mmol/L LAB CHEMISTRY METHOD 08/11/2024 7:03 AM [facility] Chloride 104 96 - 110 mmol/L LAB CHEMISTRY METHOD 08/11/2024 7:03 AM [facility] CO2 20(L) 21 - 32 mmol/L LAB CHEMISTRY METHOD 08/11/2024 7:03 AM [facility] Anion Gap 12(H) 3 - 11 LAB CHEMISTRY METHOD 08/11/2024 7:03 AM [facility] Glucose 72 70 - 100 mg/dL LAB CHEMISTRY METHOD 08/11/2024 7:03 AM [facility] BUN 7 5 - 25 mg/dL LAB CHEMISTRY METHOD 08/11/2024 7:03 AM [facility] Creatinine 0.74 0.50 - 1.10 mg/dL LAB CHEMISTRY METHOD 08/11/2024 7:03 AM [facility] LAB eGFR 108 >=60 mL/min/1. 73m2 LAB CHEMISTRY METHOD 08/11/2024 7:03 AM [facility] LAB Comment:Calculation based on the Chronic Kidney Disease Epidemiology Collaboration (CKD-EPI) equation refit without adjustment for race. BUN/Creatinine Ratio 9.5 LAB CHEMISTRY METHOD 08/11/2024 7:03 AM [facility] Calcium 9.1 8.5 - 10.5 mg/dL LAB CHEMISTRY METHOD 08/11/2024 7:03 AM [facility] AST (SGOT) 17 10 - 42 unit/L LAB CHEMISTRY METHOD 08/11/2024 7:03 AM [facility] ALT (SGPT) 14 10 - 60 unit/L LAB CHEMISTRY METHOD 08/11/2024 7:03 AM [facility] Alkaline Phosphatase 63 42 - 121 unit/L LAB CHEMISTRY METHOD 08/11/2024 7:03 AM [facility] Total Protein 7.3 6.0 - 8.0 g/dL LAB CHEMISTRY METHOD 08/11/2024 7:03 AM [facility] Albumin 3.3 3.2 - 5.0 g/dL LAB CHEMISTRY METHOD 08/11/2024 7:03 AM [facility] Total Bilirubin 0.6 0.0 - 1.4 mg/dL LAB CHEMISTRY METHOD 08/11/2024 7:03 AM [facility] Blood Venous blood specimen / Unknown Venipuncture / Unknown 08/11/2024 5:53 AM EDT 08/11/2024 6:14 AM EDT us Faizan CARDOSO LAB BLOOD ORDERABLES Final Re sult [facility] [address] [place] [address], * Light blue tube (08/10/2024 7:57 PM EDT) Extra Tube Hold for add-ons. 08/10/2024 10:02 PM T [facility] Comment:Auto resulted. Blood Venous blood specimen / Unknown 08/10/2024 7:57 PM EDT 08/10/2024 8:04 PM EDT Son Ashraf DO LAB BLOOD ORDERABLES Final Res ult Performing Organization Address City/[facility]/ZIP Co de Phone Number [facility] [address] [place] [address], [place] [phone] * (ABNORMAL) Vitamin B12 and folate (08/10/2024 7:56 PM EDT) Pathologist [facility] Vitamin B-12 1,273(H) 250 - 900 pcg/mL LAB CHEMISTRY METHOD 08/10/2024 9:08 PM EDT [facility] Folate 13.2 2.8 - 17.0 ng/ml LAB CHEMISTRY METHOD 08/10/2024 9:08 PM EDT [facility] Blood Venous blood specimen / Unknown Venipuncture / Unknown 08/10/2024 7:56 PM EDT 08/10/2024 8:03 PM EDT Faizan CARDOSO LAB BLOOD ORDERABLES Final Re sult Performing Organization Address [facility]/ZIP Co de Phone Number [facility] [address] [place] [address], [place] [phone] * Copper, serum (08/10/2024 7:56 PM EDT) Only the most recent of2 resultswithin the time period is included. Pathologist [facility] Copper 1281 810 - 1990 ug/L 08/14/2024 9:15 AM EDT [facility] Comment: Copper values may be elevated to twice the normal levels in . Elevated results may be due to sample collected in a non-certified trace element-free tube. This test was developed and the performance characteristics determined by [facility]. It has not been cleared or approved by the FDA. The laboratory is regulated under CLIA as qualified to perform high-complexity testing. This test is used for patient testing purposes. It should not be regarded as investigational or for research. Test performed at [facility], [address], [place] [address] Bertha Matt MD, PhD - Banking Officer Blood Venous blood specimen / Unknown Venipuncture / Unknown 08/10/2024 7:56 PM EDT 08/10/2024 8:03 PM EDT Faizan Jai [facility] LAB BLOOD ORDERABLES Final Re sult Performing Organization Address [facility] Co de Phone Number [facility] [address] [place] [address] * Zinc (08/10/2024 7:56 PM EDT) Only the most recent of2 resultswithin the time period is included. Zinc 91 60 - 130 ug/dL 08/13/2024 11:11 AM EDT [facility] Comment: Elevated results may be due to sample collected in a non-certified trace element-free tube. This test was developed and the performance characteristics determined by [facility]. It has not been cleared or approved by the FDA. The laboratory is regulated under CLIA as qualified to perform high-complexity testing. This test is used for patient testing purposes. It should not be regarded as investigational or for research. Test performed at [facility], [address], [place] [address] Bertha Matt MD, PhD - Banking Officer Blood Venous blood specimen / Unknown Venipuncture / Unknown 08/10/2024 7:56 PM EDT 08/10/2024 8:03 PM EDT Faizan CARDOSO LAB BLOOD ORDERABLES Final Re sult Performing Organization Address [facility] Co de Phone Number [facility] [address] [place] [address] * Selenium serum (08/10/2024 7:56 PM EDT) Only the most recent of2 resultswithin the time period is included. Selenium 139 63 - 160 mcg/L 08/15/2024 12:29 AM EDT [facility] Comment: This test was developed and its analytical performance characteristics have been determined by [employer] [place], [place]. It has not been cleared or approved by the U.S. Food and Drug Administration. This assay has been validated pursuant to the CLIA regulations and is used for clinical purposes. Test Performed by [employer], [employer] [place], [address] [place] [address] Bandar Barahona M.D., Ph.D., Director of Laboratories , CLIA [id number] Blood Venous blood specimen / Unknown Venipuncture / Unknown 08/10/2024 7:56 PM EDT 08/10/2024 8:02 PM EDT Faizan CARD[facility] LAB BLOOD ORDERABLES Final Re sult Performing Organization Address [facility]/ZIP Co de Phone Number [facility] [address] [place] [address] * Vitamin D 1,25 dihydroxy (08/10/2024 7:56 PM EDT) [facility] Vitamin D, 1, 25-Dihydroxy 37 20 - 79 pg/mL 08/13/2024 6:23 PM EDT [facility] Comment: Vitamin D 1, 25 dihydroxy levels should be primarily used to assess Vitamin D status in patients with renal disease and hypercalcemia. Vitamin D 1,25-dihydroxy levels are generally less than 5 pg/mL in end stage renal disease patients. The preferred initial test for assessing Vitamin D status in the general population is Vitamin D 25-hydroxy (VITD). Test performed at [facility], [address] [place] [address] Bertha Matt MD, PhD - Banking Officer Blood Venous blood specimen / Unknown Venipuncture / Unknown 08/10/2024 7:56 PM EDT 08/10/2024 8:02 PM EDT Faizan CARDOSO LAB BLOOD ORDERABLES Final Re sult Performing Organization Address City/[facility]/ZIP Co de Phone Number [facility] [address] [place] [phone] * (ABNORMAL) Vitamin A (08/10/2024 7:55 PM EDT) Only the most recent of2 resultswithin the time period is included. Vitamin A 28(L) 38 - 106 ug/dL 08/14/2024 6:11 AM EDT [facility] Comment: This test was developed and the performance characteristics determined by [facility]. It has not been cleared or approved by the FDA. The laboratory is regulated under CLIA as qualified to perform high-complexity testing. This test is used for patient testing purposes. It should not be regarded as investigational or for research. Test performed at [facility], [address] [place] [address] Bertha Matt MD, PhD - Banking Officer Blood Venous blood specimen / Unknown Venipuncture / Unknown 08/10/2024 7:55 PM EDT 08/10/2024 8:03 PM EDT Faizan CARDOSO LAB BLOOD ORDERABLES Final Re sult [facility] [address] [place] [address] * Vitamin B1 (08/10/2024 7:55 PM EDT) Only the most recent of2 resultswithin the time period is included. [facility] Vitamin B1 Whole Blood 101 38 - 122 ug/L 08/15/2024 10:52 AM EDT [facility] Comment: This test was developed and the performance characteristics determined by [facility]. It has not been cleared or approved by the FDA. The laboratory is regulated under CLIA as qualified to perform high-complexity testing. This test is used for patient testing purposes. It should not be regarded as investigational or for research. Test performed at [facility], [address] , [place] [address] Bertha Matt MD, PhD - Banking Officer Blood Venous blood specimen / Unknown Venipuncture / Unknown 08/10/2024 7:55 PM EDT 08/10/2024 8:03 PM EDT Faizan CARDOSO LAB BLOOD ORDERABLES Final Re sult Performing Organization Address [facility] de Phone Number ASHLEY VILLANUEVA [address] [place] [address] * (ABNORMAL) Vitamin B6 (08/10/2024 7:55 PM EDT) Only the most recent of2 resultswithin the time period is included. Vitamin B6 (Pyridoxine) Level 62(H) 5 - 50 ug/L 08/14/2024 8:22 AM EDT [facility] Comment: This test was developed and the performance characteristics determined by [facility]. It has not been cleared or approved by the FDA. The laboratory is regulated under CLIA as qualified to perform high-complexity testing. This test is used for patient testing purposes. It should not be regarded as investigational or for research. Test performed at [facility], [address] [place] [address] Bertha Matt MD, PhD - Banking Officer Blood Venous blood specimen / Unknown Venipuncture / Unknown 08/10/2024 7:55 PM EDT 08/10/2024 8:03 PM EDT Faizan CARDOSO LAB BLOOD ORDERABLES Final Re sult Performing Organization Address [facility] de Phone Number [facility] [address] [place] [address] * CT Abdomen Pelvis w Contrast (08/10/2024 4:44 PM EDT) Anatomical Region Laterality Modality Body Computed Tomogra phy 08/10/2024 5:46 PM EDT Impressions 08/10/2024 5:46 PM EDT Impression: No bowel obstruction or other acute findings. This document has been electronically signed by: Lashon Mike MD on 08/10/2024 17:46:24 Narrative 08/10/2024 5:46 PM EDT INDICATION: Bowel obstruction suspected CT abdomen and pelvis with contrast Comparison: None Findings: No consolidation at the lung bases. Unremarkable gallbladder and bladder. Focal fat at the falciform ligament.. The other solid organs are unremarkable. Oral contrast reaches mid to distal transverse colon. Status post Megan-en-Y gastrojejunostomy. No bowel dilation. No definitive bowel wall thickening; there are portions of the small bowel and colon which are underdistended. A normal appendix is identified. Stool quantity is within normal limits. Normal vasculature. No lymphadenopathy. No ascites. No acute osseous abnormality. Procedure Note Lashon Riggs MD - 08/10/2024 INDICATION: Bowel obstruction suspected CT abdomen and pelvis with contrast Comparison: None Findings: No consolidation at the lung bases. Unremarkable gallbladder and bladder. Focal fat at the falciform ligament.. The other solid organs are unremarkable. Oral contrast reaches mid to distal transverse colon. Status post Megan-en-Y gastrojejunostomy. No bowel dilation. No definitive bowel wall thickening; there are portions of the small bowel and colon which are underdistended. A normal appendix is identified. Stool quantity iswithin normal limits. Normal vasculature. No lymphadenopathy. No ascites. No acute osseous abnormality. IMPRESSION: Impression: No bowel obstruction or other acute findings. This document has been electronically signed by: Lashon Mike MD on 08/10/2024 17:46:24 Jermaine Enriquez MD IMG CT PROCEDURES Final Res ult * Type and screen (08/10/2024 2:03 PM EDT) ABO Group A 08/10/2024 2:59 PM EDT [facility] Rh Type Positive 08/10/2024 2:59 PM EDT [facility] Antibody Screen Negative 08/10/2024 2:59 PM EDT [facility] Blood Venous blood specimen / Unknown Venipuncture / Unknown 08/10/2024 2:03 PM EDT 08/10/2024 2:08 PM EDT Jermaine Enriquez MD LAB BLOOD BANK TEST ORDERAB LES Final Result Performing Organization Address [facility]/ZIP Co de Phone Number [facility] [address] [place] [address], [place] [phone] * (ABNORMAL) Iron and TIBC (07/21/2024 7:46 AM EDT) Iron 45 40 - 150 mcg/dL LAB CHEMISTRY METHOD 07/21/2024 10:52 AM EDT [facility] TIBC 338 250 - 450 mcg/dL LAB CHEMISTRY METHOD 07/21/2024 10:52 AM EDT [facility] Iron Saturation 13(L) 15 - 50 % LAB CHEMISTRY METHOD 07/21/2024 10:52 AM EDT [facility] Blood Venous blood specimen / Unknown Venipuncture / Unknown 07/21/2024 7:46 AM EDT 07/21/2024 9:42 AM EDT Anne Dwyer MD LAB BLOOD ORDERABLES Fi nal Result Performing Organization Address [facility] de Phone Number [facility] [address] [place] [address], [place] [phone] * Vitamin D 25 hydroxy (07/21/2024 7:46 AM EDT) Vit D, 25-Hydroxy 42.9 30.0 - 80.0 ng/mL LAB CHEMISTRY METHOD 07/21/2024 11:44 AM EDT [facility] Blood Venous blood specimen / Unknown Venipuncture / Unknown 07/21/2024 7:46 AM EDT 07/21/2024 9:42 AM EDT Anne Dwyer MD LAB BLOOD ORDERABLES Fi nal Result Performing Organization Address City/[facility]/ZIP Co de Phone Number [facility] [address] [place] [address], [place] [phone] * Parathyroid hormone intact (07/21/2024 7:46 AM EDT) [facility] PTH 28.7 18.5 - 88.0 pcg/mL LAB CHEMISTRY METHOD 07/21/2024 11:44 AM EDT [facility] Blood Venous blood specimen / Unknown Venipuncture / Unknown 07/21/2024 7:46 AM EDT 07/21/2024 9:42 AM EDT us Anne Dwyer MD LAB BLOOD ORDERABLES Fi nal Result [facility] [address] [place] [address], [place] [phone] * Folate (07/21/2024 7:46 AM EDT) [facility] Folate 14.1 2.8 - 17.0 ng/ml LAB CHEMISTRY METHOD 07/21/2024 11:13 AM EDT [facility] Blood Venous blood specimen / Unknown Venipuncture / Unknown 07/21/2024 7:46 AM EDT 07/21/2024 9:42 AM EDT us Anne Dwyer MD LAB BLOOD ORDERABLES Fi nal Result [facility] [address] [place] [address], [place] [phone] * (ABNORMAL) Vitamin B12 (07/21/2024 7:46 AM EDT) [facility] Vitamin B-12 1,263(H) 250 - 900 pcg/mL LAB CHEMISTRY METHOD 07/21/2024 11:13 AM EDT [facility] Blood Venous blood specimen / Unknown Venipuncture / Unknown 07/21/2024 7:46 AM EDT 07/21/2024 9:42 AM EDT Anne Dwyer MD LAB BLOOD ORDERABLES Fi nal Result [facility] [address] [place] [address], * (ABNORMAL) Lipid panel (06/14/2023) LDL/HDL Ratio 4 0 - 4 Triglycerides 263(A) 0 - 150 mg/dL Cholesterol 173 0 - 200 mg/dL HDL 40 >=40 mg/dL LDL Cholesterol 81 0 - 100 mg/dL Blood Venous blood specimen / Unknown Historical Provider LAB BLOOD ORDERABLES Silvia l Result from Last 3 Months or Most Recently Relevant to Health Maintenance Insurance [facility] Advance Directives * Full Code - Default (Latest Code Status on File) Date Activated Date Inactivated Comments 08/10/2024 7:08 PM 08/11/2024 6:06 PM This is orde r is used when code status has not been discussed with the patient, or code status is otherwise unknown/unconfirmed To update the patient's code status, place a code status order. Do not modify or discontinue any currently active code status orders. * Full Code - Default Date Activated Date Inactivated Comments 05/22/2024 2:47 [...] currently active code status orders. Care Teams Dandy Operator Relationship Specialty Start Date End Date Niall Gonsalves PA [address] [place] [phone] PCP - General Physician Solar Installer 07/10/24
--- NOTE | 2024-10-08 09:52 | MHC.PC.OV ---
Vital Signs 10/08/24 09:53 Height 5 ft 6 in Weight 187 lb 2 oz BMI 30.2 BP 90/58 L Blood Pressure Location Lt brachial Position Sitting Pulse 60 Pulse Source Palpation Temp 97.1 F Temp Source Temporal Artery Scan Intake Visit Reasons: Annual Exam Marketing Manager Required: Yes Marketing Manager Language: Nuclear Medicine Officer Name: ID # [id number] Accompanied by: Self / Same As Patient Allergies No Known Allergies (No Known Allergies*) Allergy (Verified 10/08/24 10:15) Medication List - Last Reconciled 10/08/24 by Niall Gonsalves PA-C baclofen 10 mg PO BID 15 days diclofenac sodium 50 mg PO Q12H PRN 5 days ibuprofen 800 mg PO Q8H PRN 30 days ketoconazole 2% 1 appl topical levothyroxine 25 mcg PO DAILY 90 days omeprazole 20 mg PO DAILY 30 days vitamin A 1 cap PO DAILY Tobacco use date assessed: 04/21/24 Dental Screening Dental Screen Date: 10/08/24 Did you have a dental visit in the last 12 months?: Yes Did you have a dental problem in the last 6 months where you did not have access to dental care?: No Was dental information given to patient?: Patient has dentist HPI Annual Exam HPI Details Patient is a 34-year-old female here today for a routine annual physical. Patient has a past medical history significant for hypothyroidism, impaired glucose metabolism, obesity. .. . Hypothyroidism: She has a history of hypothyroidism , most recent TSH normalized S/p bariatric surgery. .. Class 1 obesity: Has gone through bariatric surgery and has lost a significant amount of weight. Today's BMI at 30.2. Labs including thyroid and blood sugars have improved since bariatric surgery. .. Thoracic radiculitis: Patient reports having upper mid back/flank pain that is intolerable at times. She has been evaluated previously for her lower lumbar spine pain with MRI which showed --> Spondylosis, mild, L3-4 to L5-S1. PLAN: For her thoracic spine pain will consider pain management and physical therapy. Will supply patient with muscle relaxer and gabapentin for her pain. Advised to hold off on ibuprofen due to her previous history bariatric surgery and risk for GI bleed Cervical cancer screening: followed by a RADIO MESSAGE ROUTER and UTD with PAP Vaccines up-to-date with COVID vaccine, flu vaccine, needs tetanus vaccine Laboratory Tests 12/02/22 02/09/2307/06/24 07:44 11:27 07:29 RBC Hgb Hct Potassium Creatinine Fasting Glucose 119 H 81 112 H Cholesterol 175 TSH 07/26/23 03/06/24 07/21/24 13:05 09:02 14:06 RBC 4.63 Hgb 11.4 L 12.7 Hct 36.2 L Potassium 3.5 Creatinine Fasting Glucose Cholesterol TSH 4.08 H 5.77 H 10/06/24 07:34 RBC Hgb Hct Potassium 3.2 L Creatinine 0.76 Fasting Glucose Cholesterol TSH 3.42 [facility] Medical History Missed with demise before 20 completed weeks of gestation Missed period Encounter for routine screening for malformation using ultrasound Rosacea Physical exam DUB (dysfunctional uterine bleeding) Allergic rhinitis Chronic diarrhea Surgical History History of bilateral tubal ligation History of Family History Mother Epilepsy Maternal Grandfather Cardiac arrest Father No problems noted. Social History (Updated 10/08/24 @ 10:22 by Niall Gonsalves PA-C) Household Members: Children Both parents involved: Yes Caregiver staying overnight: No Housing: Apartment Are you a primary animal caretaker supervisor to a significant other at home: No Do you presently have visiting nurse or other home services: No 75 years or older and lives alone: No Alcohol intake: current Alcohol intake frequency: holidays/special occasions only Alcohol type: wine Patient Tobacco Use Status: Never used Tobacco e-Cigarette/Vaping Use: Never Used Second Hand Smoke Exposure: No Agree to transfusion: Yes service: No Current occupational status: employed 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 1. Little interest or pleasure in doing things: not at all 2. Feeling down, depressed, or hopeless: not at all 3. Trouble falling or staying asleep, or sleeping too much: several days 4. Feeling tired or having little energy: not at all 5. Poor appetite or overeating: not at all 6. Feeling bad about yourself - or that you are a failure or have let yourself or your family down: not at all 7. Trouble concentrating on things, such as reading the newspaper or watching television: not at all 8. Moving or speaking so slowly that other people could have noticed. Or the opposite - being so fidgety or restless that you have been moving around a lot more than usual: not at all 9. Thoughts that you would be better off or of hurting yourself in some way: not at all Total score: 1 Depression Screening Interpretation: Negative Depression Screening Done: Yes 47605 - PHQ-9 Billing: Yes Source: Developed by Drs. Scotty Og, Katya Marley, Kody Ferrara and colleagues, with an educational yaniv from [employer] Thrive Questionnaire Date Thrive assessed: 10/08/24 I am a: Patient What is your living situation today?: I have a steady place to live Within the past 12 months, did the food you bought not last and you didn't have the money to get more?: Never true Within the past 12 months, did you worry whether your food would run out before you got money to buy more?: Never true Do you have trouble paying for medicines?: No Do you have trouble getting transportation to medical appointments?: No Do you have trouble paying your heating and electricity bill?: No Do you have trouble taking care of your child, family member or friend?: No Do you have trouble with day-to-day activities such as bathing, preparing meals, shopping, managing finances, etc.?: No Are you currently unemployed and looking for a job?: No Are you interested in more education?: No Please select the resources that you would like help with: None Currently or been in a relationship where the following occur: No concerns reported THRIVE Score: 0 AUDIT C Alcohol Use Questionnaire (AUDIT-C) 1. How often do you have a drink containing alcohol?: Never 3. How often do you have six or more drinks on one occasion?: Never Total Score: 0 LARON-7 AMB Questionnaire LARON-7 Date LARON - 7 assessed: 10/08/24 Feeling nervous, anxious, or on edge: 0 = Not at all Not being able to stop or control worryin = Not at all Worrying too much about different things: 0 = Not at all Trouble relaxin = Not at all Being so restless that it is hard to sit still: 0 = Not at all Becoming easily annoyed or irritable: 0 = Not at all Feeling afraid as if something awful might happen: 0 = Not at all Total LARON-7 score (0-4 normal; 5-9 mild; 10-14 moderate; 15-21 severe): 0 Source: Developed by Drs. Scotty Og, Katya Marley, Kody Ferrara and colleagues, with an educational yaniv from [employer].. LARON-7 Assessment Billing LARON-7 Assessment Tool: LARON-7 Assessment 87723 Review of Systems Const Denies body aches, Denies chills, Denies excessive sweating, Denies fatigue, Denies fever(s) and Denies headache(s) Eyes Denies blurry vision ENT Denies dysphagia, Denies vertigo, Denies dizziness, Denies headache(s), Denies hearing loss and Denies tinnitus Card Denies chest pain, Denies chest pain with activity, Denies syncope, Denies irregular heart rhythm and Denies dyspnea Resp Denies chest congestion, Denies cough, Denies hemoptysis, Denies dyspnea and Denies wheezing GI Denies abdominal pain, Denies melena, Denies hematochezia, Denies coffee ground emesis, Denies dysphagia, Denies diarrhea, Denies nausea and Denies vomiting Denies urinary frequency, Denies dysuria, Denies urinary hesitancy and Denies urinary urgency Musc Denies arthralgias, Denies limited range of motion, Denies muscle cramps and Denies muscle weakness Skin/Breast Denies rash and Denies skin ulcer Neuro Denies Abnormal speech present, Denies confusion, Denies vertigo, Denies dizziness, Denies syncope, Denies headache(s), Denies memory loss and Denies seizure-like activity Psych Denies anxiety, Denies confusion, Denies depression, Denies memory loss, Denies panic attacks and Denies paranoia Endo Denies excessive sweating, Denies fatigue, Denies flushing, Denies polydipsia and Denies polyuria Aller/Immun Denies wheezing Physical exam (Primary Care) Vital Signs: Last Vital Signs Temp 97.1 F 10/08/24 09:53 Pulse 60 10/08/24 09:53 BP 90/58 L 10/08/24 09:53 BMI result Body Mass Index 30.2 BMI Assessment/Plan discussion: High BMI High, discussed plan: lifestyle, weight reduction, dietary and physical activity Tobacco/Smoking Status: Tobacco use Status Tobacco use date assessed 04/21/24 10/08/24 10:00 Patient Tobacco Use Status Never used Tobacco 10/08/24 10:22 e-Cigarette/Vaping Use Never Used 10/08/24 10:22 PHQ-9: PHQ-9 Score PHQ-9: Total score 1 10/08/24 11:07 Depression Screening Interpretation: Negative Thrive Assessment: Date of Thrive Assessment Date Thrive assessed 10/08/24 10/08/24 10:00 Currently or been in a relationship where the following occur: No concerns reported Const General: cooperative, comfortable, no acute distress, alert and awake; No confusion Orientation/consciousness: oriented to person, oriented to place, patient oriented x3 and No confusion HENMT Head: Yes normocephalic Ears: external ears normal and TM's normal bilaterally Face and sinus: No sinus tenderness Mouth: Normal oral and palatal mucosa present and tongue normal Teeth and gingiva: dentition normal and gingiva normal Throat: Yes posterior oropharynx normal, Yes tonsils normal and Yes uvula midline Eyes Conjunctivae: conjunctivae normal Sclerae: sclerae normal Pupils: Equal, round and reactive pupils present EOM: EOMs intact bilaterally Direct Ophthalmoscopy: No no photophobia Neck Neck: Yes no lymphadenopathy, No tender and Yes no JVD Thyroid: Thyroid normal Carotids: no bruits Chest Chest palpation & inspection: no tenderness Resp Effort & Inspection: normal respiratory effort, no audible wheezes, not labored and no stridor Auscultation: no crackles, no rales, no rhonchi and no wheezes Cardio Jugular venous distension: no JVD Rate: regular rate, not bradycardic and not tachycardic Rhythm: regular rhythm Bruits: no carotid bruits Peripheral pulses: Peripheral pulses 2+ throughout GI Inspection: Yes normal to inspection, No abdominal wall ecchymosis and No visible herniation Palpation (GI): Soft to palpation, nontender, no guarding, not rigid and No hepatosplenomegaly present Auscultation: normoactive bowel sounds General: Yes no CVA tenderness Back/Spine/Pelvis Back: no CVA tenderness and No back tenderness Cervical Spine: cervical ROM normal Thoracic/Lumbar Spine: thoracic and lumbar spine normal to inspection, straight leg raise negative bilaterally, No thoraco-lumbar ROM limited and No lumbar spinal tenderness Skin Lesions: no lesions Rashes: no rashes Wounds: no wounds Neuro General: oriented to person, oriented to place, patient oriented x3, CN's II-XI intact bilaterally and No confusion Cranial nerves: Yes Equal, round and reactive pupils present and Yes Normal accommodation reflex present Cognition (Neuro): normal cognition Speech: No Abnormal speech present Gait exam (Neuro): Normal gait present Motor exam (neuro): 5/5 motor strength present throughout Extrem Right upper extremity: full ROM; no cyanosis Left upper extremity: full ROM; no cyanosis Right lower extremity: no edema Left lower extremity: no edema Psych Appearance: grossly normal Mental Status: mental status grossly normal Affect: normal affect Attitude: cooperative Thought process: Normal thought process present Immunizations Boostrix Tdap 2.5 Lf unit-8 mcg-5 Lf/0.5 mL intramuscular syringe Performing Provider: Niall Gonsalves PA-C [facility] [place] Administered by: HAROLDO Carcamo on 10/08/24 11:07 Dose Route Admin Location Dispensed Lot Number Expiration Date NDC Project Superintendent 0.5 mL IM Left Deltoid 0.5 mL [id number] 11/29/26 58356-589-40 [employer] Total Dispensed Waste 0.5 mL 0 % VIS Given Date VIS Provided VIS Publication Date 10/08/24 Single Vaccine 24 Eligibility Eligibility Date Funding Source Not [facility] Eligible 10/08/24 Private Coding Level of Care Code Est Pt Prev Care 18-39y([id number]) Diagnoses Annual physical exam Z00.00 Thoracic radiculitis M54.14 Hypokalemia E87.6 Dyslipidemia E78.5 Elevated TSH R79.89 Additional Codes LARON-7 Assessment Billing - LARON-7 Assessment Tool: LARON-7 Assessment 37976 ([id number]) PHQ-9 - 26711 - PHQ-9 Billing: Yes ([id number]) Assessment & Plan Assessment & Plan (1) Annual physical exam: Code(s): Z00.00 - Encounter for general adult medical examination without abnormal findings Category: Medical Plan: As per HPI (2) Thoracic radiculitis: Code(s): M54.14 - Radiculopathy, thoracic region Category: Medical Plan: As per HPI patient has been experiencing thoracic spine pain over the last few months she reports at times it is very painful. She uses ibuprofen which is helpful though has risk for GI bleed due to her previous bariatric surgery. Will supply patient with muscle relaxer and gabapentin for pain. Will try to set him up with physical therapy and pain management to help reduce her thoracic spine pain (3) Hypokalemia: Code(s): E87.6 - Hypokalemia Category: Medical Plan: Noted hypokalemia on most recent labs. ? Malabsorption due to bariatric surgery. Will supply patient with potassium supplementation. (4) Dyslipidemia: Code(s): E78.5 - Hyperlipidemia, unspecified Category: Medical Plan: Patient has dyslipidemia has improved since bariatric surgery. (5) Elevated TSH: Code(s): R79.89 - Other specified abnormal findings of blood chemistry Category: Medical Plan: Patient's thyroid has stabilized out since bariatric surgery. Not further on levothyroxine Orders: Orders PT Evaluation and Treatment 10/08/24 M54.14 - Radiculopathy, thoracic region Comprehensive Harmony. Panel Fast 10/08/24 R73.02 - Impaired glucose tolerance (oral) Hemoglobin A1c 10/08/24 R73.02 - Impaired glucose tolerance (oral) Complete Blood Count no Diff 10/08/24 R73.02 - Impaired glucose tolerance (oral) TDaP Immunization 10/08/24 R73.02 - Impaired glucose tolerance (oral), Z23 - Encounter for immunization Referrals Pain Management Referral M54.14 - Radiculopathy, thoracic region Medications: New potassium chloride ER (Klor-Con M) 10 mEq PO DAILY 90 tabs 1RF 90 days E87.6 - Hypokalemia gabapentin 100 mg PO BID 60 caps 1RF 30 days M54.14 - Radiculopathy, thoracic region Refilled baclofen 10 mg PO BID 30 tabs 0RF 15 days M25.561 - Pain in right knee Discontinued omeprazole Discontinued Reason: Doctor's Order 20 mg PO DAILY 30 days 30 caps 1RF K21.9 - Gastro-esophageal reflux disease without esophagitis diclofenac sodium Discontinued Reason: Doctor's Order 50 mg PO Q12H 5 days PRN 10 tabs 0RF for pain S83.411A - Sprain of medial collateral ligament of right knee, initial encounter levothyroxine Discontinued Reason: Doctor's Order 25 mcg PO DAILY 90 days 90 tabs 1RF E03.9 - Hypothyroidism, unspecified
[2024-10-08 09:53] VITALS: BP 90/58; PULSE 60; TEMP 36.2; BMI 30.2
== END 2024-10-08 10:45 | disposition home or self-care (01) ==
LOC: HO.HMCH 09:26
PROVIDERS: PCP Physician Assistant; Visit Provider Physician Assistant
DX: Z00.00 Encounter for general adult medical examination without abnormal findings (principal); M54.14 Radiculopathy, thoracic region; E87.6 Hypokalemia; E78.5 Hyperlipidemia, unspecified; R79.89 Other specified abnormal findings of blood chemistry

== ENCOUNTER → 2024-10-08 09:23 | Outpatient (BNVA) | payer OTHER, SELFPAY | PROVIDERS: PCP Physician Assistant; Visit Provider Physician Assistant | DX: Z00.00 Encounter for general adult medical examination without abnormal findings (principal); Z23 Encounter for immunization; M54.14 Radiculopathy, thoracic region; E87.6 Hypokalemia; E78.5 Hyperlipidemia, unspecified; R79.89 Other specified abnormal findings of blood chemistry; Z13.31 Encounter for screening for depression; Z13.30 Encounter for screening examination for mental health and behavioral disorders, unspecified | CPT/HCPCS: 90471; 90715; 96127; 99395 ==

== ENCOUNTER 2024-10-21 11:25 | Outpatient (AMB) | payer OTHER, SELFPAY ==
--- NOTE | 2024-10-21 11:27 | A.OFFVIS_ITS ---
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 She has a history of chronic low back pain, which has been present for several years and worsened after the of her last child two years ago. The lumbar spine MRI completed in April showed no acute fracture or compression but revealed mild spondylosis from L3 through S1. The patient also reports chronic flank pain and describes her back pain as worsening when bending backwards, consistent with arthritis. She has not experienced any chest pain or shortness of breath. The patient has not undergone any back surgery or injections and reports that gabapentin has not provided relief. She has tried muscle relaxants without significant benefit and does not take ibuprofen due to prior bariatric surgery. The patient denies smoking, alcohol, or drug use and has no history of depression or anxiety. She underwent gastric bypass surgery, resulting in a weight loss of 73 pounds. - Onset: Pain has been present for several years, worsening after childbirth two years ago. - Quality: Described as sharp pain, worsens with bending backwards. - Location: Primarily in the lower back, radiating to the flank. - Exacerbating factors: Bending backwards increases pain. - Relieving factors: Lying on the side provides some relief. - Interference: Pain affects sleep, causing the patient to wake up and struggle to get comfortable. - Affect: Pain impacts sleep, causing the patient to wake up and struggle to get comfortable. - Analgesia: Currently using gabapentin and baclofen without relief; lidocaine patch prescribed. - Adverse Effects: Muscle relaxants did not provide relief and did not cause drowsiness. - Activities of Daily Living: Pain interferes with lifting and bending activities. - Aberrant Drug Related Behaviors: No evidence of medication misuse or abuse. Oswestry Low Back Pain Disability Score=14 PFSH Medical History Missed with demise before 20 completed weeks of gestation Missed period Encounter for routine screening for malformation using ultrasound Rosacea Physical exam DUB (dysfunctional uterine bleeding) Allergic rhinitis Chronic diarrhea Surgical History History of bilateral tubal ligation History of Family History Mother Epilepsy Maternal Grandfather Cardiac arrest Father No problems noted. 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 Denies pain in buttocks. - Respiratory: Denies dyspnea or chest pain. - Neurological: Reports pain radiating to the flank. Denies any neurological deficits. - Gastrointestinal: Denies any gastrointestinal symptoms. - Psychiatric: Denies depression or anxiety. All systems reviewed & are unremarkable except as noted in HPI and below Physical Exam Vital Signs: Last Vital Signs Pulse 62 10/21/24 11:35 BP 113/79 10/21/24 11:35 Pulse Ox 98 10/21/24 11:35 Oxygen Delivery Method Room Air 10/21/24 11:35 BMI result Body Mass Index 29.4 General: Appears afebrile. Alert and oriented. Mood and affect appropriate. Follows and participates in conversation appropriately. Respiratory effort is unlabored. No cough. Able to transition from sit to stand unassisted. Ambulates with bilaterally normal heel strike and toe off. General: Yes no CVA tenderness Back/Spine/Pelvis Other: Patient is able to walk and stand on heels and tip toes with no difficulties demonstrating good motor tone. Normal gait, no limping. Lumbar flexion is intact and does not reproduce pain, lumbar extension reproduces moderate pain. Demonstrates 5/5 strength of quadriceps bilaterally as well as flexion/dorsiflexion of bilateral feet against resistance. 2+ pedal pulses bilaterally. Straight leg rise with dorsiflexion negative bilaterally. +2 patellar and achilles reflexes bilaterally. Facet loading test positive bilaterally. Bandar?s and Stinchfield tests are negative bilaterally. No groin pain with I/E hip rotations. Valsalva maneuver negative. Back: no CVA tenderness Cervical Spine: cervical ROM normal, cervical muscular tenderness, No Cervical spine tenderness and No step off deformity Thoracic/Lumbar Spine: thoracic and lumbar spine normal to inspection, No Thoracic/lumbar spine scar(s), Lasegue's sign negative, straight leg raise negative bilaterally, pain with thoraco-lumbar ROM, paraspinal muscle tenderness, thoraco-lumbar ROM limited, Thoracic/lumbar scoliosis, thoracic spinal tenderness (mid to lower thoracic) and lumbar spinal tenderness at L4 and at L5 Pelvis: no buttock tenderness Sacroiliac joints: bilaterally nontender Results Reviewed Results Reviewed: MR LUMBAR SPINE WITHOUT CONTRAST 04/12/24 CLINICAL INFORMATION: Low back pain. COMPARISON: None available. TECHNIQUE: MRI of the lumbar spine was obtained using routine sequences without contrast. FINDINGS: Submitted for interpretation on April 15, 2024. Last rib-bearing vertebra labeled T12. No bone marrow STIR signal abnormality. The alignment is normal. The conus medullaris ends at superior endplate of L1 with normal signal. T12-L1: No disc herniation. No neuroforamina stenosis. L1-2: No disc herniation. No neuroforamina stenosis. L2-3: No disc herniation. No neuroforamina stenosis. L3-4: Broad-based disc bulging. No central spinal canal or neuroforamina stenosis C4-5: Broad-based disc bulging. Facet joint atrophy. No central spinal canal or neuroforamina stenosis. L5-S1: Broad-based disc bulging. Facet joint hypertrophy. Reduced AP diameter of the thecal sac. No compression upon neural elements. No prevertebral compartment hematoma, mass or fluid collection. IMPRESSION: No acute fracture or listhesis or compression upon neural elements. Spondylosis, mild, L3-4 to L5-S1. XR THORACIC SPINE 10/21/24 CLINICAL INFORMATION: M54.14 - Radiculopathy, thoracic region COMPARISON: None available. TECHNIQUE: AP lateral and swimmer's projection. FINDINGS: Mild dextroconvex curvature of the thoracic spine and levoconvex curvature at the thoracolumbar junction. No acute cortical disruption or malalignment. No lytic or blastic lesions. IMPRESSION: Mild scoliosis, thoracolumbar spine. XR CERVICAL SPINE 10/21/24 CLINICAL INFORMATION: M54.14 - Radiculopathy, thoracic region COMPARISON: None available. TECHNIQUE: AP lateral and atlantoodontoid views. FINDINGS: Craniocervical junction is intact. No acute cortical disruption or gross malalignment. No lytic or blastic lesions. IMPRESSION: No acute fracture or listhesis. Negative exam. Assessment & Plan Assessment & Plan (1) Thoracic radiculitis: Code(s): M54.14 - Radiculopathy, thoracic region Category: Medical (2) Thoracolumbar back pain: Code(s): M54.50 - Low back pain, unspecified; M54.6 - Pain in thoracic spine Category: Medical (3) Lumbar spondylosis: Code(s): M47.816 - Spondylosis without myelopathy or radiculopathy, lumbar region Category: Medical (4) Muscle spasm of back: Code(s): M62.830 - Muscle spasm of back Category: Medical (5) Cervicalgia: Code(s): M54.2 - Cervicalgia Category: Medical Plan The patient underwent x-ray of cervical and thoracic spine as noted above. Physical therapy has been recommended as an initial step, and the patient is advised to contact the therapy provider to initiate sessions as this has been ordered by her PCP few weeks ago. Script provided for lidocaine patch to affected areas for symptom relief. Continue gabapentin and baclofen as needed. Follow-up in 6-8 weeks to see response to physical therapy, if no response to physical therapy will consider further interventional strategy. Patient was informed and verbally consented to the use of an ambient scribe for clinic note documentation during this visit. Orders: Orders XR thoracic spine 3V Today M54.14 - Radiculopathy, thoracic region, M54.50 - Low back pain, unspecified, M54.6 - Pain in thoracic spine XR cervical spine 3V Today M54.14 - Radiculopathy, thoracic region, M54.2 - Cervicalgia, M62.830 - Muscle spasm of back Medications: New lidocaine 5% 1 patch topical DAILY 30 ea 0RF pain 30 days M47.816 - Spondylosis without myelopathy or radiculopathy, lumbar region, M54.50 - Low back pain, unspecified, M54.6 - Pain in thoracic spine Coding Level of Care Code New Pt Level 4 (79614) Diagnoses Thoracic radiculitis M54.14 Thoracolumbar back pain M54.50; M54.6 Lumbar spondylosis M47.816 Muscle spasm of back M62.830 Cervicalgia M54.2
[2024-10-21 11:35] VITALS: BP 113/79; PULSE 62; O2SAT 98; BMI 29.4
--- OUTSIDE RECORDS SUMMARY | 2024-10-21 12:42 | XMS_ITS | Clinical Summary ---
Author Organization [facility] Address [address] [place] [id number] Phone Care Team Providers Care Rn New Graduate Name Role Phone Bre Coronado MD Primary Care Provid er Allergies No known active allergies Medications ibuprofen (ADVIL,MOTRIN) 800 MG tablet Take 800 mg by mouth. 02/21/2023 Active doxycycline hyclate (VIBRAMYCIN) 50 MG capsule Take 50 mg by mouth 2 (two) times a day. 05/03/2023 Active Social History Tobacco Use Types Packs/Day Years Used Date Smoking Tobacco: Never Tobacco Cessation:Counseling Given: Not Answered Alcohol Use Standard Drinks/Week Comments Not Currently 0 (1 standard drink = 0.6 oz pur e alcohol) Education Answer Date Recorded Are you interested in more education? Not on darshan e 04/25/2023 Are you concerned about learning? Not on file 04/25/2023 No 04/25/2023 No 04/25/2023 Digital Access Answer Date Recorded No 04/25/2023 No 04/25/2023 Reliable internet access at home? Not on file 04/25/2023 Device with a working camera? Not on file Comments Unknown Sex and Gender Information Value Date Recorded Sex Assigned at Not on file Legal Sex Female 1:39 PM EST Gender Identity Not on file Sexual Orientation Not on file Last Filed Vital Signs Vital Sign Reading Time Taken Comments Blood Pressure 128/82 05/07/2023 10:39 AM EST Pulse 67 05/07/2023 10:39 AM EST Temperature - - Respiratory Rate - - Oxygen Saturation - - Inhaled Oxygen Concentration - - Weight 117.3 kg (258 lb 9.6 oz) 024 10:39 AM EST Height 166.4 cm (5' 5.5 ) 05/07/2023 10 :39 AM EST Body Mass Index 42.38 05/07/2023 10:39 AM EST Plan of Treatment Health Maintenance Due Date Last Done Comments Adult Td,Tdap Booster 1988 DEPRESSION SCREENING 2000 HEPATITIS C SCREENING 2006 HIV ONE-TIME SCREENING (18-6 5 YEARS) 2006 PAP SMEAR 2009 SMOKING STATUS SCREENING (On ce After 26 Yrs) 2014 SCREENING FOR DIABETES 06/17/2023 COVID-19 VACCINE (2023-2 5 season) 2023 HEPATITIS A VACCINES Aged Out No long er eligible based on patient's age to complete this topic HIB VACCINES Aged Out No longer eligi ble based on patient's age to complete this topic MENINGOCOCCAL VACCINES (ACWY) Aged Out No longer eligible based on patient's age to complete this topic MENINGOCOCCAL VACCINES (B) Aged Out N o longer eligible based on patient's age to complete this topic PNEUMOCOCCAL VACCINES (0-49 years) Aged Out No longer eligible based on patient's age to complete this topic Medical Devices Not on file Insurance [place] [address] [facility]CO [facility] Care Teams Rn New Graduate Relationship Specialty Start Date End Date Bre Coronado MD [address] [place] [address] PCP - General Internal Medicine 05/07/23 Additional Source Comments The information contained in this document represents components of the legal health record. It is not the complete legal health record.[facility]
--- OUTSIDE RECORDS SUMMARY | 2024-10-21 12:42 | XMS_ITS | Clinical Summary ---
Author Organization 175 [facility] Address [address] [place] [address] Phone Care Team Providers Care Director Of Market Intelligence Name Role Phone Niall Gonsalves Primary Care [...] - 08/20/2024 11:59 PM EDT Hospital Encounter [address] [phone] S/P bariatric surgery (Primary Dx); Dehydration; Class 2 obesity due to excess calories without serious comorbidity with body mass index (BMI) of 37.0 to 37.9 in adult Discharge Disposition: Home or Self Care 08/13/2024 10:30 AM EDT Office Visit Bariatric Surgery - [place] 175 [facility] [address] [place] [phone] Anne Dwyer MD S/P gastric bypass (Primary Dx); Obesity, Class I, BMI 30-34.9; Vitamin deficiency 08/10/2024 2:13 PM EDT - 08/11/2024 3:57 PM EDT Hospital Encounter [facility] Unit [address] [place] [phone] Jermaine Enriquez MD White, Cullen D, DO Intractable vomiting (Primary Dx); History of Megan-en-Y gastric bypass Discharge Disposition: Home or Self Care 08/06/2024 10:19 AM EDT - 08/06/2024 11:59 PM EDT Hospital Encounter [address] [place] [phone] Anne Dwyer MD S/P bariatric surgery (Primary Dx); Dehydration; Class 2 obesity due to excess calories without serious comorbidity with body mass index (BMI) of 37.0 to 37.9 in adult Discharge Disposition: Home or Self Care 08/04/2024 Telephone Bariatric Surgery - [place] [address] [phone] Mitzy Mcghee AR 08/01/2024 Telephone TH HISTORIC ENCOUNTERS EASTERN CONVERSION ONLY Radha Robles RN 07/29/2024 7:54 AM EDT - 07/29/2024 11:59 PM EDT Hospital Encounter [facility] Infusion [address] [phone] Anne Dwyer MD S/P bariatric surgery (Primary Dx); Dehydration; Class 2 obesity due to excess calories without serious comorbidity with body mass index (BMI) of 37.0 to 37.9 in adult Discharge Disposition: Home or Self Care 07/24/2024 Telephone Bariatric Surgery - [address] [phone] Sheron Lozano MD Advice Only (IV fluids) 07/22/2024 3:30 PM EDT Office Visit Bariatric Surgery [address] [phone] Anne Dwyer MD S/P gastric bypass (Primary Dx); Increased thirst; Nausea and vomiting, unspecified vomiting type; Obesity, Class II, BMI 35-39.9 from Last 3 Months Surgical History Surgery [...] AM EDT Office Visit Bariatric Surgery - [place] [address] [phone] Anne Dwyer MD 175 [facility] [address] [place] [phone] Health Maintenance Due Date Last Done Comments DTaP,Tdap,and Td Vaccines (1 - Tdap) 06/17/2007 Hepatitis B Vaccines (1 of 3 - 19+ 3-dose series) 06/17/2007 Cervical Cancer Screening: Pap Smear 2009 HIV Screening 10/26/2023 Hepatitis C Screening 10/26/2023 Social Influencers of Health Screening 10/26/2023 COVID-19 Vaccine ( season) 2023 03/08/2021, 08/17/2020, 07/20/2020 Depression Screening 04/02/2024 Influenza Vaccine (#1) 2024 , 03/14/2022, 03/08/2021, [...] AND DIFFERENTIAL STAT 08/10/2024 2:03 PM EDT LIPID PANEL Routine 06/14/2023 from Last 3 Months or Most Recently Relevant to Health Maintenance Results * (ABNORMAL) CBC auto differential (08/11/2024 5:53 AM EDT) Only the most recent of2 resultswithin the time period is included. WBC 7.9 4.8 - 10.8 K/mcL LAB HEMETOLOGY METHOD 08/11/2024 6:57 AM EDT [facility] RBC 4.60 3.80 - 4.80 M/mcL LAB HEMETOLOGY METHOD 08/11/2024 6:57 AM EDT [facility] Hemoglobin 12.5 11.5 - 16.0 g/dL LAB HEMETOLOGY METHOD 08/11/2024 6:57 AM EDT [facility] Hematocrit 40.0 35.0 - 47.0 % LAB HEMETOLOGY METHOD 08/11/2024 6:57 AM EDT [facility] MCV 87.0 79.0 - 98.0 FL LAB HEMETOLOGY METHOD 08/11/2024 6:57 AM [facility] MCH 27.2 27.0 - 32.0 pcg LAB HEMETOLOGY METHOD 08/11/2024 6:57 AM [facility] MCHC 31.3(L) 32.0 - 37.0 g/dL LAB HEMETOLOGY METHOD 08/11/2024 6:57 AM [facility] RDW 17.4(H) 11.0 - 15.0 % LAB HEMETOLOGY METHOD 08/11/2024 6:57 AM [facility] Platelets 08/11/2024 6:57 AM [facility] Comment:Not measured. Platel ets appear adequate but clumped MPV 11.8(H) 7.0 - 11.0 FL LAB HEMETOLOGY METHOD 08/11/2024 6:57 AM [facility] NRBC 0.0 <1.0 % LAB HEMETOLOGY METHOD 08/11/2024 6:57 AM [facility] NRBC Absolute 0.00 <0.10 K/mcL LAB HEMETOLOGY METHOD 08/11/2024 6:57 AM [facility] Neutrophils Relative 43.3 % LAB HEMETOLOGY METHOD 08/11/2024 6:57 AM [facility] Lymphocytes Relative 46.1 % LAB HEMETOLOGY METHOD 08/11/2024 6:57 AM [facility] Monocytes Relative 8.6 % LAB HEMETOLOGY METHOD 08/11/2024 6:57 AM [facility] Eosinophils Relative 0.6 % LAB HEMETOLOGY METHOD 08/11/2024 6:57 AM EDT [facility] Basophils Relative 0.8 % LAB HEMETOLOGY METHOD 08/11/2024 6:57 AM EDT [facility] Immature Granulocytes Relative 0.6 % LAB HEMETOLOGY METHOD 08/11/2024 6:57 AM EDT [facility] Neutrophils Absolute 3.42 1.50 - 7.00 K/mcL LAB HEMETOLOGY METHOD 08/11/2024 6:57 AM EDT [facility] Lymphocytes Absolute 3.65 1.00 - 5.00 K/mcL LAB HEMETOLOGY METHOD 08/11/2024 6:57 AM EDT [facility] Monocytes Absolute 0.68 0.20 - 1.00 K/mcL LAB HEMETOLOGY METHOD 08/11/2024 6:57 AM EDT [facility] Eosinophils Absolute 0.05 0.00 - 0.50 K/mcL LAB HEMETOLOGY METHOD 08/11/2024 6:57 AM EDT [facility] Basophils Absolute 0.06 0.00 - 0.20 K/mcL LAB HEMETOLOGY METHOD 08/11/2024 6:57 AM EDT [facility] Immature Granulocytes Absolute 0.05(H) 0.00 - 0.03 K/mcL LAB HEMETOLOGY METHOD 08/11/2024 6:57 AM EDT [facility] Blood Venous blood specimen / Unknown Venipuncture / Unknown 08/11/2024 5:53 AM EDT 08/11/2024 6:14 AM EDT us Faizan CARDOSO LAB BLOOD ORDERABLES Final Re sult [facility] [address] [place] [address], * (ABNORMAL) Comprehensive metabolic panel (08/11/2024 5:53 AM EDT) Only the most recent of2 resultswithin the time period is included. Sodium 136 133 - 145 mmol/L LAB CHEMISTRY METHOD 08/11/2024 7:03 AM [facility] Potassium 3.9 3.5 - 5.5 mmol/L LAB CHEMISTRY METHOD 08/11/2024 7:03 AM [facility] Chloride 104 96 - 110 mmol/L LAB CHEMISTRY METHOD 08/11/2024 7:03 AM [facility] CO2 20(L) 21 - 32 mmol/L LAB CHEMISTRY METHOD 08/11/2024 7:03 AM [facility] Anion Gap 12(H) 3 - 11 LAB CHEMISTRY METHOD 08/11/2024 7:03 AM [facility] Glucose 72 70 - 100 mg/dL LAB CHEMISTRY METHOD 08/11/2024 7:03 AM [facility] BUN 7 5 - 25 mg/dL LAB CHEMISTRY METHOD 08/11/2024 7:03 AM [facility] Creatinine 0.74 0.50 - 1.10 mg/dL LAB CHEMISTRY METHOD 08/11/2024 7:03 AM [facility] eGFR 108 >=60 mL/min/1. 73m2 LAB CHEMISTRY METHOD 08/11/2024 7:03 AM [facility] Comment:Calculation based on the Chronic Kidney Disease Epidemiology Collaboration (CKD-EPI) equation refit without adjustment for race. BUN/Creatinine Ratio 9.5 LAB CHEMISTRY METHOD 08/11/2024 7:03 AM [facility] Calcium 9.1 8.5 - 10.5 mg/dL LAB CHEMISTRY METHOD 08/11/2024 7:03 AM [facility] AST (SGOT) 17 10 - 42 unit/L LAB CHEMISTRY METHOD 08/11/2024 7:03 AM [facility] ALT (SGPT) 14 10 - 60 unit/L LAB CHEMISTRY METHOD 08/11/2024 7:03 AM EDT [facility] Alkaline Phosphatase 63 42 - 121 unit/L LAB CHEMISTRY METHOD 08/11/2024 7:03 AM EDT [facility] Total Protein 7.3 6.0 - 8.0 g/dL LAB CHEMISTRY METHOD 08/11/2024 7:03 AM EDT [facility] Albumin 3.3 3.2 - 5.0 g/dL LAB CHEMISTRY METHOD 08/11/2024 7:03 AM EDT [facility] Total Bilirubin 0.6 0.0 - 1.4 mg/dL LAB CHEMISTRY METHOD 08/11/2024 7:03 AM EDT [facility] Blood Venous blood specimen / Unknown Venipuncture / Unknown 08/11/2024 5:53 AM EDT 08/11/2024 6:14 AM EDT Faizan Landers PA LAB BLOOD ORDERABLES Final Re sult Performing Organization Address City/[facility]/ZIP Co de Phone Number [facility] [address] [place] [address], [place] [phone] * Light blue tube (08/10/2024 7:57 PM EDT) Extra Tube Hold for add-ons. 08/10/2024 10:02 PM EDT [facility] Comment:Auto resulted. Blood Venous blood specimen / Unknown 08/10/2024 7:57 PM EDT 08/10/2024 8:04 PM EDT Son Ashraf DO LAB BLOOD ORDERABLES Final Res ult Performing Organization Address City/[facility]/ZIP Co de Phone Number [facility] [address] [place] [address], [place] [phone] * (ABNORMAL) Vitamin B12 and folate (08/10/2024 7:56 PM EDT) Vitamin B-12 1,273(H) 250 - 900 pcg/mL LAB CHEMISTRY METHOD 08/10/2024 9:08 PM EDT [facility] Folate 13.2 2.8 - 17.0 ng/ml LAB CHEMISTRY METHOD 08/10/2024 9:08 PM EDT [facility] Blood Venous blood specimen / Unknown Venipuncture / Unknown 08/10/2024 7:56 PM EDT 08/10/2024 8:03 PM EDT Faizan CARDOSO LAB BLOOD ORDERABLES Final Re sult Performing Organization Address City/[facility]/ZIP Co de Phone Number [facility] [address] [place] [address], [place] [phone] * Copper, serum (08/10/2024 7:56 PM EDT) [facility] Copper 1281 810 - 1990 ug/L 08/14/2024 9:15 AM EDT [facility] Comment: Copper values may be elevated to twice the normal levels in . Elevated results may be due to sample collected in a non-certified trace element-free tube. This test was developed and the performance characteristics determined by [facility]. It has not been cleared or approved by the FDA. The laboratory is regulated under CLIA as qualified to perform high-complexity testing. This test is used for patient testing purposes. It should not be regarded as investigational or for research. Test performed at [facility], [address] , [place] [address] Bertha Matt MD, PhD - Wood Dowel Machine Operator Blood Venous blood specimen / Unknown Venipuncture / Unknown 08/10/2024 7:56 PM EDT 08/10/2024 8:03 PM EDT Faizan CARDOSO LAB BLOOD ORDERABLES Final Re sult [facility] [address] [place] [address] * Zinc (08/10/2024 7:56 PM EDT) Zinc 91 60 - 130 ug/dL 08/13/2024 11:11 AM EDT [facility] Comment: Elevated results may be due to sample collected in a non-certified trace element-free tube. This test was developed and the performance characteristics determined by [facility]. It has not been cleared or approved by the FDA. The laboratory is regulated under CLIA as qualified to perform high-complexity testing. This test is used for patient testing purposes. It should not be regarded as investigational or for research. Test performed at [facility], [address] , [place] [address] Bertha Matt MD, PhD - [employer] Machine Operator Blood Venous blood specimen / Unknown Venipuncture / Unknown 08/10/2024 7:56 PM EDT 08/10/2024 8:03 PM EDT Faizan CARDOSO LAB BLOOD ORDERABLES Final Re sult [facility] [address] [place] [address] * Selenium serum (08/10/2024 7:56 PM EDT) Selenium 139 63 - 160 mcg/L 08/15/2024 12:29 AM EDT [facility] Comment: This test was developed and its analytical performance characteristics have been determined by [facility] [place], [place]. It has not been cleared or approved by the U.S. Food and Drug Administration. This assay has been validated pursuant to the CLIA regulations and is used for clinical purposes. Test Performed by [facility] [place], [address] [place] [address] Bandar Barahona M.D., Ph.D., Director of Laboratories , CLIA [id number] Blood Venous blood specimen / Unknown Venipuncture / Unknown 08/10/2024 7:56 PM EDT 08/10/2024 8:02 PM EDT Faizan CARDOSO LAB BLOOD ORDERABLES Final Re sult Performing Organization Address [facility]/ZIP Co de Phone Number [facility] [address] [place] [address] * Vitamin D 1,25 dihydroxy (08/10/2024 7:56 PM EDT) Vitamin D, 1, 25-Dihydroxy 37 20 - 79 pg/mL 08/13/2024 6:23 PM EDT [facility] Comment: Vitamin D 1, 25 dihydroxy levels should be primarily used to assess Vitamin D status in patients with renal disease and hypercalcemia. Vitamin D 1,25-dihydroxy levels are generally less than 5 pg/mL in end stage renal disease patients. The preferred initial test for assessing Vitamin D status in the general population is Vitamin D 25-hydroxy (VITD). Test performed at [facility], [facility] [address] [place] [address] Bertha Matt MD, PhD - Wood Dowel Machine Operator Blood Venous blood specimen / Unknown Venipuncture / Unknown 08/10/2024 7:56 PM EDT 08/10/2024 8:02 PM EDT Faizan CARDOSO LAB BLOOD ORDERABLES Final Re sult Performing Organization Address [facility] Co de Phone Number [facility] [address] [place] [address] * (ABNORMAL) Vitamin A (08/10/2024 7:55 PM EDT) Vitamin A 28(L) 38 - 106 ug/dL 08/14/2024 6:11 AM EDT [facility] Comment: This test was developed and the performance characteristics determined by [facility]. It has not been cleared or approved by the FDA. The laboratory is regulated under CLIA as qualified to perform high-complexity testing. This test is used for patient testing purposes. It should not be regarded as investigational or for research. Test performed at [facility], [address] [place] [address] Bertha Matt MD, PhD - [employer] Machine Operator Blood Venous blood specimen / Unknown Venipuncture / Unknown 08/10/2024 7:55 PM EDT 08/10/2024 8:03 PM EDT Faizan Vergara Leesa CARDOSO LAB BLOOD ORDERABLES Final Re sult Performing Organization Address [facility] Co de Phone Number [facility] [address] [place] [address] * Vitamin B1 (08/10/2024 7:55 PM EDT) Vitamin B1 Whole Blood 101 38 - 122 ug/L 08/15/2024 10:52 AM EDT [facility] Comment: This test was developed and the performance characteristics determined by [facility]. It has not been cleared or approved by the FDA. The laboratory is regulated under CLIA as qualified to perform high-complexity testing. This test is used for patient testing purposes. It should not be regarded as investigational or for research. Test performed at [facility], [address] [place] [address] Bertha Matt MD, PhD - [employer] Machine Operator Blood Venous blood specimen / Unknown Venipuncture / Unknown 08/10/2024 7:55 PM EDT 08/10/2024 8:03 PM EDT Faizan Landers PA LAB BLOOD ORDERABLES Final Re sult Performing Organization Address City/[facility]/ZIP Co de Phone Number [facility] [address] [place] [address] * (ABNORMAL) Vitamin B6 (08/10/2024 7:55 PM EDT) Vitamin B6 (Pyridoxine) Level 62(H) 5 - 50 ug/L 08/14/2024 8:22 AM EDT [facility] Comment: This test was developed and the performance characteristics determined by [facility]. It has not been cleared or approved by the FDA. The laboratory is regulated under CLIA as qualified to perform high-complexity testing. This test is used for patient testing purposes. It should not be regarded as investigational or for research. Test performed at [facility], [address], [place] [address] Bertha Matt MD, PhD - [employer] Machine Operator Blood Venous blood specimen / Unknown Venipuncture / Unknown 08/10/2024 7:55 PM EDT 08/10/2024 8:03 PM EDT us Faizan CARDOSO LAB BLOOD ORDERABLES Final Re sult [facility] [address] [place] [address] * CT Abdomen Pelvis w Contrast (08/10/2024 [...] Type and screen (08/10/2024 2:03 PM EDT) Pathologist [facility] A 08/10/2024 2:59 PM EDT [facility] Rh Type Positive 08/10/2024 2:59 PM EDT [facility] Antibody Screen Negative 08/10/2024 2:59 PM EDT [facility] Blood Venous blood specimen / Unknown Venipuncture / Unknown 08/10/2024 2:03 PM EDT 08/10/2024 2:08 PM EDT Jermaine Enriquez MD LAB BLOOD BANK TEST ORDERAB LES Final Result [facility] [address] [place] [address], * (ABNORMAL) Lipid panel (06/14/2023) LDL/HDL Ratio 4 0 - 4 Triglycerides 263(A) 0 - 150 mg/dL Cholesterol 173 0 - 200 mg/dL HDL 40 >=40 mg/dL LDL Cholesterol 81 0 - 100 mg/dL Blood Venous blood specimen / Unknown Historical Provider LAB BLOOD ORDERABLES Silvia l Result from Last 3 Months or Most Recently Relevant to Health Maintenance Insurance [facility] [place] [address] Advance Directives * Full Code - Default [...] currently active code status orders. Care Teams Director Of Market Intelligence Relationship Specialty [place] [address] [place] [phone] PCP - General Physician [employer] 07/10/24
--- OUTSIDE RECORDS SUMMARY | 2024-10-21 12:42 | XMS_ITS | Encounter Summary ---
Author Organization [employer] Address [address] [facility] [address] [place] [address] Care Team Providers Care Laboratory Mechanical Technician Name Role Phone Unavailable Primary Care Provider Unavailabl e Encounter Details Date Type Department Care Team (Latest Contact Info) Description 06/12/2018 Abstract [facility] CONVERSIONS Dental, Provider, DDS Social [...]
== END 2024-10-21 12:05 | disposition home or self-care (01) ==
LOC: HO.PMC 11:25
PROVIDERS: PCP Physician Assistant; Referring Provider Physician Assistant; Visit Provider Nurse Practitioner Family
DX: M54.14 Radiculopathy, thoracic region (principal); M54.50 Low back pain, unspecified; M54.6 Pain in thoracic spine; M47.816 Spondylosis without myelopathy or radiculopathy, lumbar region; M62.830 Muscle spasm of back; M54.2 Cervicalgia
CPT/HCPCS: 99204

== ENCOUNTER 2024-10-21 11:25 | Outpatient (REF) | payer OTHER, SELFPAY ==
--- NOTE | ~2024-10-21 | XR_ITS ---
EXAMINATION: XR THORACIC SPINE CLINICAL INFORMATION: M54.14 - Radiculopathy, thoracic region COMPARISON: None available. TECHNIQUE: AP lateral and swimmer's projection. FINDINGS: Mild dextroconvex curvature of the thoracic spine and levoconvex curvature at the thoracolumbar junction. No acute cortical disruption or malalignment. No lytic or blastic lesions. XR/XR thoracic spine 3V IMPRESSION: Mild scoliosis, thoracolumbar spine. Electronically signed by: Juan A Morales MD 10/21/2024 12:43 PM EDT
--- NOTE | ~2024-10-21 | XR_ITS ---
EXAMINATION: XR CERVICAL SPINE CLINICAL INFORMATION: M54.14 - Radiculopathy, thoracic region COMPARISON: None available. TECHNIQUE: AP lateral and atlantoodontoid views. FINDINGS: Craniocervical junction is intact. No acute cortical disruption or gross malalignment. No lytic or blastic lesions. XR/XR cervical spine 3V IMPRESSION: No acute fracture or listhesis. Negative exam. Electronically signed by: Juan A Morales MD 10/21/2024 12:43 PM EDT
== END 2024-10-21 11:26 | disposition home or self-care (01) ==
LOC: HO.XRAY 11:25
PROVIDERS: PCP Physician Assistant; Referring Provider Physician Assistant; Visit Provider Nurse Practitioner Family
DX: M54.14 Radiculopathy, thoracic region (principal); M54.50 Low back pain, unspecified; M54.6 Pain in thoracic spine; M62.830 Muscle spasm of back; M54.2 Cervicalgia
CPT/HCPCS: 72040; 72072; 99202

== ENCOUNTER → 2024-10-21 12:06 | Outpatient (BNV) | payer OTHER, SELFPAY | PROVIDERS: PCP Physician Assistant; Referring Provider Physician Assistant; Visit Provider Radiology Diagnostic Radiology | DX: M54.14 Radiculopathy, thoracic region (principal) | CPT/HCPCS: 72040; 72072 ==

== ENCOUNTER 2025-02-06 08:55 | Outpatient (AMB) | payer OTHER, SELFPAY ==
--- NOTE | 2025-02-06 08:57 | MHC.PC.OV ---
Vital Signs 02/06/25 08:58 Height 5 ft 6 in Weight 150 lb 8 oz BMI 24.3 BP 130/60 Blood Pressure Location Lt brachial Position Sitting Temp 97.3 F Temp Source Temporal Artery Scan Intake Visit Reasons: pt has migraines and unable to sleep Intake Note: Patient is here to follow up on Migraine and unable to sleep. 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 Name: Candie [id number] Information Interpreted: non-clinical & clinical Microbiology Lab Assistant: Not Required per policy Accompanied by: Self / Same As Patient Allergies No Known Allergies (No Known Allergies*) Allergy (Verified 02/06/25 08:58) Medication List - Last Reconciled 02/06/25 by Daron Ortiz MD baclofen 10 mg PO BID 15 days cholecalciferol (vitamin D3) (Vitamin D3) 25 mcg PO DAILY gabapentin 100 mg PO BID 30 days lidocaine 5% 1 patch topical DAILY 30 days pantoprazole 40 mg PO QAM potassium chloride ER (Klor-Con M) 10 mEq PO DAILY 90 days thiamine HCl (vitamin B1) 200 mg PO DAILY ursodiol 300 mg PO BID Tobacco use date assessed: 02/06/25 Dental Screening Dental Screen Date: 10/08/24 HPI HPI Comments History of Present Illness Details The patient is a 34-year-old female presenting with headaches. She has a history of migraines but denies currently experiencing them. She reports recent headaches located in the frontal region and the nape of the neck, which have been interfering with her sleep. In the past, she took Motrin 800 mg for her migraines. Following bariatric surgery for obesity, she was advised to discontinue Motrin and has not taken any medication for her current headaches. Current mediations include baclofen, vitamin D, gabapentin, pantoprazole, thiamine, and ursodiol. [facility] Medical History (Updated 02/06/25 @ 11:40 by Daron Ortiz MD) Missed with demise before 20 completed weeks of gestation Missed period Encounter for routine screening for malformation using ultrasound Rosacea Physical exam DUB (dysfunctional uterine bleeding) Allergic rhinitis Chronic diarrhea Surgical History (Updated 02/06/25 @ 09:05 by Edd Estrella Abhilash) History of gastric surgery History of hernia surgery History of bilateral tubal ligation History of Family History Mother Epilepsy Maternal Grandfather Cardiac arrest Father No problems noted. Social History Household Members: Children Both parents involved: Yes Caregiver staying overnight: No Housing: Apartment Are you a primary acute care occupational therapist to a significant other at home: No Do you presently have visiting nurse or other home services: No 75 years or older and lives alone: No Alcohol intake: current Alcohol intake frequency: holidays/special occasions only Alcohol type: wine Patient Tobacco Use Status: Never used Tobacco e-Cigarette/Vaping Use: Never Used Second Hand Smoke Exposure: No Agree to transfusion: Yes service: No Current occupational status: employed 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 Current occupational exposures/hazards: No Sexual orientation: Straight/Heterosexual Gender identity: Female Cognitive needs: No Hearing needs: No Vision needs: Yes Female Reproductive History Menstrual Age of Menarche: 10 Questionnaire Thrive Questionnaire Date Thrive assessed: 10/08/24 I am a: Patient What is your living situation today?: I have a steady place to live Within the past 12 months, did the food you bought not last and you didn't have the money to get more?: I choose not to answer this question Within the past 12 months, did you worry whether your food would run out before you got money to buy more?: I choose not to answer this question Do you have trouble paying for medicines?: I choose not to answer this question Do you have trouble getting transportation to medical appointments?: I choose not to answer this question Do you have trouble paying your heating and electricity bill?: I choose not to answer this question Do you have trouble taking care of your child, family member or friend?: I choose not to answer this question Do you have trouble with day-to-day activities such as bathing, preparing meals, shopping, managing finances, etc.?: I choose not to answer this question Are you currently unemployed and looking for a job?: I choose not to answer this question Are you interested in more education?: I choose not to answer this question Please select the resources that you would like help with: None Currently or been in a relationship where the following occur: No concerns reported THRIVE Score: 0 LARON-7 AMB Questionnaire LARON-7 Date LARON - 7 assessed: 10/08/24 Source: Developed by Drs. Scotty Og, Katya Marley, Kody Ferrara and colleagues, with an educational yaniv from [employer]. Review of Systems Const Details: As per HPI. Physical exam (Primary Care) Vital Signs: Last Vital Signs Temp 97.3 F 02/06/25 08:58 BP 130/60 02/06/25 08:58 BMI result Body Mass Index 24.3 Tobacco/Smoking Status: Tobacco use Status Tobacco use date assessed 02/06/25 02/06/25 09:06 Patient Tobacco Use Status Never used Tobacco 02/06/25 09:06 e-Cigarette/Vaping Use Never Used 02/06/25 09:06 Thrive Assessment: Date of Thrive Assessment Date Thrive assessed 10/08/24 02/06/25 09:06 Currently or been in a relationship where the following occur: No concerns reported Const Other: Pertinent findings are in BOLD GENERAL APPEARANCE NAD, activity normal for age, well developed/ well nourished, no cyanosis, pallor, or diaphoresis. EYES lids/conjunctiva normal. EARS/NOSE/THROAT Mucous membranes moist, nares normal, lips/teeth normal uvula midline without oral pharyngeal erythema, exudate or swelling TMs normal bilaterally. No lymphangitis/lymphedema. HEAD/NECK normocephalic atraumatic, no facial trauma, neck is supple. RESPIRATORY respiratory effort normal, speaks in full sentences, no tripod position, no accessory muscle use. Lungs clear to auscultation without rhonchi, wheezes, rales CARDIAC Regular rate and rhythm, no edema. ABDOMINAL Soft, ND/NT. No evidence of fluid wave. No pulsatile masses on exam, rebound tenderness, Chang sign or pain over Mcburney's point. MUSCLES/EXTREMITIES No abnormal range of motion, no swelling. SKIN Warm, pink and dry. No rashes, dermatoses, petechiae or lesions. NEUROLOGICAL Speech is clear and appropriate. Normal level of consciousness. Gait and coordination are normal. 5/5 strength in all extremities. PSYCH Normal mood and affect. Judgement/competence is appropriate Coding Level of Care Code Est Pt Level 3 (04831) Diagnoses Acute intractable tension-type headache G44.201 Headache type: tension-type Headache chronicity pattern: acute headache Intractability: intractable Time Spent (min) 30 Assessment & Plan Assessment & Plan (1) Headache: Code(s): R51.9 - Headache, unspecified Category: Medical Qualifiers: Headache type: tension-type Headache chronicity pattern: acute headache Intractability: intractable Qualified Code(s): G44.201 - Tension-type headache, unspecified, intractable Plan: - Tylenol 325 mg was prescribed, to be taken as needed for headache, up to two to four times per day. - The patient was advised that the [id number] formulation is equivalent and she may choose the cheaper option. - Recommended lifestyle modifications including stress management. - The patient will follow up with her primary care provider in April as scheduled. Plan I discussed the patient's recent onset of headaches and her medication history. Given her history of bariatric surgery, I explained that it is important to avoid medications like Motrin and ibuprofen to be safe, and recommended Tylenol as an alternative for her headaches. I prescribed Tylenol 325 mg and instructed her to take one pill as needed, up to 2-4 times a day. I advised her that this is the same as the [id number]-[id number]-[id number] version and she could purchase whichever is cheaper. We also discussed the importance of stress management. I recommended she follow up with her primary care provider as scheduled in April, but she is welcome to return sooner if needed. Medications: New acetaminophen (Tylenol) 325 mg PO QID PRN 30 tabs 1RF pain
[2025-02-06 08:58] VITALS: BP 130/60; TEMP 36.3; BMI 24.3
--- OUTSIDE RECORDS SUMMARY | 2025-02-06 09:48 | XMS_ITS | Clinical Summary ---
Author Organization [facility] Address [address] [place] [phone] Phone Care Team Providers Care Community Case Manager Name Role Phone Bre Coronado MD Primary [...] 24 Yrs) 2014 SCREENING FOR DIABETES 06/17/2023 INFLUENZA VACCINE (#1) 2024 COVID-19 VACCINE ( - 2024-2 6 season) 2024 HEPATITIS A VACCINES Aged Out No long er eligible based on patient's age to complete this topic HIB VACCINES Aged Out No longer eligi ble based on patient's age to complete this topic IPV VACCINES Aged Out No longer eligi ble [...] topic Medical Devices Not on file Insurance [facility] [place] [address] [place] [address] [place] [address] [place] [address] [place] [address] [place] [address] [place] [address] [place] [address] ACO [facility] ACO Care Teams Community Case Manager Relationship Specialty Start Date End Date Bre Coronado MD [address] [place] [address] PCP - General Internal Medicine 05/07/23 Additional Source Comments The information contained in this document represents components of the legal health record. It is not the complete legal health record.[facility]
--- OUTSIDE RECORDS SUMMARY | 2025-02-06 09:48 | XMS_ITS | Clinical Summary ---
Author Organization [facility] Address [address] [place] [address] [address] [place] [address] Care Team Providers Care Vocal Artist Name Role Phone Unavailable Primary Care Provider [...] 10 :34 AM EDT Plan of Treatment Upcoming Encounters Date Type Department Care Team (Late st Contact Info) Description 05/06/2025 10:00 AM EST Office Visit [facility] [address] [place] [address] Alex, Alexus, OD [address] [place] [address] Health Maintenance Due Date Last Done Comments Depression Screening 1988 HIV Screening 1988 Lipid Panel 1988 SDOH Screening 1988 Disability Screening 1988 Alcohol/Substance Use Screening 2000 Tobacco Screening 2000 Family Planning (PISQ) 06/17/2003 HPV Vaccines (1 - 3-dose series) 06/17/2003 Hepatitis C Screening 2006 Hepatitis B Vaccines (1 of 3 - 19+ 3-dose series) 06/17/2007 Pap Smear 2009 Cervical Cancer Screening 2018 HPV/Cotest 2018 COVID-19 Vaccine ( season) 2024 03/08/2021, 08/17/2020, 07/20/2020 Influenza Vaccine (#1) 2024 , 03/14/2022, 03/08/2021, Additional history exists DTaP/Tdap/Td Vaccines (2 - Td or Tdap) 10/08/2034 10/08/2024 Zoster Vaccines (1 of 2) 2038 RSV [...] Years) and At-Risk Patients (6 to 49) Years Aged Out No longer eligible based on patient's age to complete this topic RSV under 20 months Aged Out No longe r eligible based on patient's age to complete this topic Rotavirus Vaccines Aged Out No longer eligible based on patient's age to complete this topic Insurance [facility] STANDARD
--- OUTSIDE RECORDS SUMMARY | 2025-02-06 09:48 | XMS_ITS | Clinical Summary ---
Author Organization [address] [facility] Address [address] [place] [address] Phone Care Team Providers Care Water Use Inspector Name Role Phone Niall Gonsalves Primary Care [...] needed for flatulence. 30 tablet 5 Active thiamine 100 mg tablet Take 2 tablets (200 mg total) by mouth 1 (one) time each day. 180 tablet 2 5 Active Gavilax 17 gram/dose oral powder TAKE 17 GRAMS BY MOUTH ONCE EVERY DAY 510 g 5 Active ursodioL (ACTIGALL) 300 mg capsule TAKE 1 CAPSULE (300 MG TOTAL) BY MOUTH 2 TIMES A DAY. 60 capsule 5 5 Active pantoprazole (PROTONIX) 40 mg EC tablet TAKE 1 TABLET BY MOUTH EVERY DAY BEFORE BREAKFAST DO NOT CRUSH, CHEW OR SPLIT 90 tablet 5 Active ferrous sulfate 325 mg (65 mg iron) EC tablet Take 1 tablet (325 mg total) by mouth 3 (three) times a day with meals. Do not crush, chew, or split. 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) ([facility] V28) 05/22/2024 Gastroesophageal reflux disease 02/18/2024 Class 2 obesity with body ma ss index (BMI) of 37.0 to 37.9 in adult 01/01/2024 Resolved Problems Problem Noted Date Diagnosed Date Resolved Date Unable to eat 08/10/2024 08/11/2024 Hiatal hernia 02/18/2024 05/23/2024 Encounters Date Type Department Care Team Description 11/14/2024 11:15 AM EDT Office Visit Bariatric Surgery - [address] [place] [address] Anne Dwyer MD Iron deficiency (Primary Dx); S/P gastric bypass; Overweight (BMI 25.0-29.9) from Last 3 Months Surgical History Surgery [...] Safety Answer Date Record ed Physical Abuse Unrecognized value 08/11/2024 Verbal Abuse Unrecognized value 08/11/2024 Comments No Sex and Gender Information Value Date Recorded Sex Assigned at Female 05/07/2024 9:49 AM EST Legal Sex Female 11:02 AM EDT Gender Identity Female 05/07/2024 9:51 AM EST Sexual Orientation Straight 05/07/2024 9: 49 AM EST Obstetrics History Last Filed Vital Signs Vital Sign Reading Time Taken Comments Blood Pressure 101/68 11/14/2024 11:04 AM EDT le gs crossed Pulse 64 11/14/2024 11:04 AM EDT Temperature 36.5 C (97.7 F) 11/14/2024 11:04 AM EDT Respiratory Rate 18 08/20/2024 9:52 AM EDT Oxygen Saturation 100% 08/20/2024 9:52 AM EDT Inhaled Oxygen Concentration - - Weight 80.7 kg (178 lb) 11/14/2024 11:04 AM EDT Height 167.6 cm (5' 6 ) 11/14/2024 11:04 AM EDT Body Mass Index 28.73 11/14/2024 11:04 AM EDT Plan of Treatment Upcoming Encounters Date Type Department Care Team (Late st Contact Info) Description 05/18/2025 10:30 AM EST Office Visit Bariatric Surgery - [address] [place] [address] Anne Dwyer MD [address] [place] [phone] Health Maintenance Due Date Last Done Comments Hepatitis B Vaccines (1 of 3 - 19+ 3-dose series) 06/17/2007 Cervical Cancer Screening: Pap Smear 2009 HPV Vaccines (1 - 3-dose SCDM series) 06/17/2015 HIV Screening 10/26/2023 Hepatitis C Screening 10/26/2023 Social Influencers of Health Screening 10/26/2023 Depression Screening 04/02/2024 COVID-19 Vaccine ( - season) 2024 03/08/2021, 08/17/2020, 07/20/2020 Influenza Vaccine (#1) 2024 , 03/14/2022, 03/08/2021, Additional history exists Cholesterol Screening (Lipid Panel) 06/13/2028 06/14/2023 DTaP,Tdap,and Td Vaccines (2 - Td or Tdap) 10/08/2034 10/08/2024 RSV Immunization Adult Patients (1 - 1-dose 75+ series) 06/17/2063 HIB [...] Diagnosis Comments CBC WITH AUTO DIFFERENTIAL Routine 11/06/2024 8:28 AM EDT S/P gastric bypass PARATHYROID HORMONE INTACT Routine 11/06/2024 8:28 AM EDT S/P gastric bypass ZINC Routine 11/06/2024 8:28 AM EDT S/P gastric bypass VITAMIN D 25 HYDROXY Routine 11/06/2024 8:28 AM EDT S/P gastric bypass VITAMIN B6 Routine 11/06/2024 8:28 AM EDT S/P gastric bypass VITAMIN B12 Routine 11/06/2024 8:28 AM EDT S/P gastric bypass VITAMIN B1 Routine 11/06/2024 8:28 AM EDT S/P gastric bypass SELENIUM SERUM Routine 11/06/2024 8:28 AM EDT S/P gastric bypass IRON AND TIBC Routine 11/06/2024 8:28 AM EDT S/P gastric bypass FOLATE Routine 11/06/2024 8:28 AM EDT S/P gastric bypass COMPREHENSIVE METABOLIC PANEL Routine 11/06/2024 8:28 AM EDT S/P gastric bypass CBC AND DIFFERENTIAL Routine 11/06/2024 8:28 AM EDT S/P gastric bypass LIPID PANEL Routine 06/14/2023 from Last 3 Months or Most Recently Relevant to Health Maintenance Results * (ABNORMAL) CBC auto differential (11/06/2024 8:28 AM EDT) [facility] WBC 7.0 4.8 - 10.8 K/mcL LAB HEMETOLOGY METHOD 11/06/2024 10:29 AM [facility] RBC 4.20 3.80 - 4.80 M/mcL LAB HEMETOLOGY METHOD 11/06/2024 10:29 AM [facility] Hemoglobin 11.5 11.5 - 16.0 g/dL LAB HEMETOLOGY METHOD 11/06/2024 10:29 AM [facility] Hematocrit 37.2 35.0 - 47.0 % LAB HEMETOLOGY METHOD 11/06/2024 10:29 AM [facility] MCV 89.4 79.0 - 98.0 FL LAB HEMETOLOGY METHOD 11/06/2024 10:29 AM [facility] MCH 27.6 27.0 - 32.0 pcg LAB HEMETOLOGY METHOD 11/06/2024 10:29 AM [facility] MCHC 30.9(L) 32.0 - 37.0 g/dL LAB HEMETOLOGY METHOD 11/06/2024 10:29 AM [facility] RDW 15.7(H) 11.0 - 15.0 % LAB HEMETOLOGY METHOD 11/06/2024 10:29 AM [facility] Platelets 361 130 - 400 K/mcL LAB HEMETOLOGY METHOD 11/06/2024 10:29 AM [facility] MPV 10.8 7.0 - 11.0 FL LAB HEMETOLOGY METHOD 11/06/2024 10:29 AM [facility] NRBC 0.0 <1.0 % LAB HEMETOLOGY METHOD 11/06/2024 10:29 AM [facility] NRBC Absolute 0.00 <0.10 K/mcL LAB HEMETOLOGY METHOD 11/06/2024 10:29 AM [facility] Neutrophils Relative 46.5 % LAB HEMETOLOGY METHOD 11/06/2024 10:29 AM [facility] Lymphocytes Relative 43.6 % LAB HEMETOLOGY METHOD 11/06/2024 10:29 AM [facility] Monocytes Relative 8.5 % LAB HEMETOLOGY METHOD 11/06/2024 10:29 AM [facility] Eosinophils Relative 0.4 % LAB HEMETOLOGY METHOD 11/06/2024 10:29 AM [facility] Basophils Relative 0.7 % LAB HEMETOLOGY METHOD 11/06/2024 10:29 AM [facility] Immature Granulocytes Relative 0.3 % LAB HEMETOLOGY METHOD 11/06/2024 10:29 AM [facility] Neutrophils Absolute 3.23 1.50 - 7.00 K/mcL LAB HEMETOLOGY METHOD 11/06/2024 10:29 AM [facility] Lymphocytes Absolute 3.03 1.00 - 5.00 K/mcL LAB HEMETOLOGY METHOD 11/06/2024 10:29 AM [facility] Monocytes Absolute 0.59 0.20 - 1.00 K/mcL LAB HEMETOLOGY METHOD 11/06/2024 10:29 AM [facility] Eosinophils Absolute 0.03 0.00 - 0.50 K/mcL LAB HEMETOLOGY METHOD 11/06/2024 10:29 AM EDT [facility] Basophils Absolute 0.05 0.00 - 0.20 K/[facility] LAB HEMETOLOGY METHOD 11/06/2024 10:29 AM EDT [facility] Immature Granulocytes Absolute 0.02 0.00 - 0.03 K/[facility] LAB HEMETOLOGY METHOD 11/06/2024 10:29 AM EDT [facility] Blood Venous blood specimen / Unknown Venipuncture / Unknown 11/06/2024 8:28 AM EDT 11/06/2024 8:28 AM EDT us Anne Dwyer MD LAB BLOOD ORDERABLES Fi nal Result Performing Organization Address City/[facility]/ZIP Co de Phone Number [facility] [address] [place] [address], [place] [phone] * (ABNORMAL) Iron and TIBC (11/06/2024 8:28 AM EDT) Iron 37(L) 40 - 150 mcg/dL LAB CHEMISTRY METHOD 11/06/2024 10:51 AM EDT [facility] TIBC 398 250 - 450 mcg/dL LAB CHEMISTRY METHOD 11/06/2024 10:51 AM EDT [facility] Iron Saturation 9(L) 15 - 50 % LAB CHEMISTRY METHOD 11/06/2024 10:51 AM EDT [facility] Blood Venous blood specimen / Unknown Venipuncture / Unknown 11/06/2024 8:28 AM EDT 11/06/2024 8:28 AM EDT us Anne Dwyer MD LAB BLOOD ORDERABLES Fi nal Result [facility] [address] [place] [address], [place] [phone] * (ABNORMAL) Zinc (11/06/2024 8:28 AM EDT) Zinc 54(L) 60 - 130 ug/dL 11/10/2024 1:07 PM EDT [facility] Comment: Elevated results may be due to sample collected in a non-certified trace element-free tube. This test was developed and the performance characteristics determined by [facility] [place] [facility]. It has not been cleared or approved by the FDA. The laboratory is regulated under CLIA as qualified to perform high-complexity testing. This test is used for patient testing purposes. It should not be regarded as investigational or for research. Test performed at [facility] [place], [address] , [place] [address] Bertha Matt MD, PhD - Environmental Health Officer Blood Venous blood specimen / Unknown Venipuncture / Unknown 11/06/2024 8:28 AM EDT 11/06/2024 8:28 AM EDT Anne Dwyer MD LAB BLOOD ORDERABLES Fi nal Result [facility] [address] [place] [address] * Selenium serum (11/06/2024 8:28 AM EDT) Selenium 96 63 - 160 mcg/L 11/09/2024 10:50 PM EDT [facility] Comment: This test was developed and its analytical performance characteristics have been determined by [facility] [place], [place]. It has not been cleared or approved by the U.S. Food and Drug Administration. This assay has been validated pursuant to the CLIA regulations and is used for clinical purposes. Test Performed by [facility], [address] [place] [address] Bandar Barahona M.D., Ph.D., Director of Laboratories , CLIA [id number] Blood Venous blood specimen / Unknown Venipuncture / Unknown 11/06/2024 8:28 AM EDT 11/06/2024 8:28 AM EDT us Anne Dwyer MD LAB BLOOD ORDERABLES Fi nal Result [facility] [address] [place] [address] * Vitamin D 25 hydroxy (11/06/2024 8:28 AM EDT) Pathologist [facility] Vit D, 25-Hydroxy 41.5 30.0 - 80.0 ng/mL LAB CHEMISTRY METHOD 11/06/2024 12:45 PM EDT [facility] Blood Venous blood specimen / Unknown Venipuncture / Unknown 11/06/2024 8:28 AM EDT 11/06/2024 8:28 AM EDT us Anne Dwyer MD LAB BLOOD ORDERABLES Fi nal Result Performing Organization Address City/[facility] Co de Phone Number [facility] [address] [place] [address], [place] [phone] * Vitamin B1 (11/06/2024 8:28 AM EDT) [facility] Vitamin B1 Whole Blood 69 38 - 122 ug/L 11/12/2024 12:22 PM EDT [facility] Comment: This test was developed and the performance characteristics determined by [facility]. It has not been cleared or approved by the FDA. The laboratory is regulated under CLIA as qualified to perform high-complexity testing. This test is used for patient testing purposes. It should not be regarded as investigational or for research. Test performed at [facility], [address], [place] [address] Bertha Matt MD, PhD - Environmental Health Officer Blood Venous blood specimen / Unknown Venipuncture / Unknown 11/06/2024 8:28 AM EDT 11/06/2024 8:28 AM EDT us Anne Dwyer MD LAB BLOOD ORDERABLES Fi nal Result [facility] [address] [place] [address] * Vitamin B6 (11/06/2024 8:28 AM EDT) Vitamin B6 (Pyridoxine) Level 39 5 - 50 ug/L 11/11/2024 8:51 AM EDT [facility] Comment: This test was developed and the performance characteristics determined by [facility]. It has not been cleared or approved by the FDA. The laboratory is regulated under CLIA as qualified to perform high-complexity testing. This test is used for patient testing purposes. It should not be regarded as investigational or for research. Test performed at [place] [place], [address] [facility] [place] [address] Bertha Matt MD, PhD - Environmental Health Officer Blood Venous blood specimen / Unknown Venipuncture / Unknown 11/06/2024 8:28 AM EDT 11/06/2024 8:28 AM EDT us Anne Dwyer MD LAB BLOOD ORDERABLES Fi nal Result Performing Organization Address [facility] Co de Phone Number [facility] [address] [place] [address] * Parathyroid hormone intact (11/06/2024 8:28 AM EDT) Pathologist [facility] PTH 57.3 18.5 - 88.0 pcg/mL LAB CHEMISTRY METHOD 11/06/2024 12:45 PM EDT [facility] Blood Venous blood specimen / Unknown Venipuncture / Unknown 11/06/2024 8:28 AM EDT 11/06/2024 8:28 AM EDT us Anne Dwyer MD LAB BLOOD ORDERABLES Fi nal Result Performing Organization Address City/[facility]/ZIP Co de Phone Number [facility] [address] [place] [address], [place] [phone] * Folate (11/06/2024 8:28 AM EDT) [facility] Folate 4.6 2.8 - 17.0 ng/ml LAB CHEMISTRY METHOD 11/06/2024 11:15 AM EDT [facility] Blood Venous blood specimen / Unknown Venipuncture / Unknown 11/06/2024 8:28 AM EDT 11/06/2024 8:28 AM EDT Anne Dwyer MD LAB BLOOD ORDERABLES Fi nal Result Performing Organization Address [facility]/ZIP Co de Phone Number [facility] [address] [place] [address], [place] [phone] * Vitamin B12 (11/06/2024 8:28 AM EDT) [facility] Vitamin B-12 330 250 - 900 pcg/mL LAB CHEMISTRY METHOD 11/06/2024 11:15 AM EDT [facility] Blood Venous blood specimen / Unknown Venipuncture / Unknown 11/06/2024 8:28 AM EDT 11/06/2024 8:28 AM EDT Anne Dwyer MD LAB BLOOD ORDERABLES Fi nal Result [facility] [address] [place] [address], [place] [phone] * Comprehensive metabolic panel (11/06/2024 8:28 AM EDT) [facility] Sodium 141 133 - 145 mmol/L LAB CHEMISTRY METHOD 11/06/2024 11:15 AM EDT [facility] Potassium 3.6 3.5 - 5.5 mmol/L LAB CHEMISTRY METHOD 11/06/2024 11:15 AM EDT [facility] Chloride 108 96 - 110 mmol/L LAB CHEMISTRY METHOD 11/06/2024 11:15 AM [facility] CO2 26 21 - 32 mmol/L LAB CHEMISTRY METHOD 11/06/2024 11:15 AM [facility] Anion Gap 7 3 - 11 LAB CHEMISTRY METHOD 11/06/2024 11:15 AM [facility] Glucose 77 70 - 100 mg/dL LAB CHEMISTRY METHOD 11/06/2024 11:15 AM [facility] BUN 8 5 - 25 mg/dL LAB CHEMISTRY METHOD 11/06/2024 11:15 AM [facility] Creatinine 0.84 0.50 - 1.10 mg/dL LAB CHEMISTRY METHOD 11/06/2024 11:15 AM [facility] eGFR 92 >=60 mL/min/1. 73m2 LAB CHEMISTRY METHOD 11/06/2024 11:15 AM [facility] Comment:Calculation based on the Chronic Kidney Disease Epidemiology Collaboration (CKD-EPI) equation refit without adjustment for race. BUN/Creatinine Ratio 9.5 LAB CHEMISTRY METHOD 11/06/2024 11:15 AM [facility] Calcium 9.1 8.5 - 10.5 mg/dL LAB CHEMISTRY METHOD 11/06/2024 11:15 AM [facility] AST (SGOT) 23 10 - 42 unit/L LAB CHEMISTRY METHOD 11/06/2024 11:15 AM [facility] ALT (SGPT) 25 10 - 60 unit/L LAB CHEMISTRY METHOD 11/06/2024 11:15 AM [facility] Alkaline Phosphatase 52 42 - 121 unit/L LAB CHEMISTRY METHOD 11/06/2024 11:15 AM [facility] Total Protein 6.7 6.0 - 8.0 g/dL LAB CHEMISTRY METHOD 11/06/2024 11:15 AM [facility] Albumin 3.7 3.2 - 5.0 g/dL LAB CHEMISTRY METHOD 11/06/2024 11:15 AM EDT [facility] ([facility]) [facility] Total Bilirubin 0.6 0.0 - 1.4 mg/dL LAB CHEMISTRY METHOD 11/06/2024 11:15 AM EDT [facility] ([facility]) [facility] Blood Venous blood specimen / Unknown Venipuncture / Unknown 11/06/2024 8:28 AM EDT 11/06/2024 8:28 AM EDT Anne Dwyer MD LAB BLOOD ORDERABLES Fi nal Result [facility] ([facility]) [facility] [address] [place] [address], * (ABNORMAL) Lipid panel (06/14/2023) LDL/HDL Ratio 4 0 - 4 Triglycerides 263(A) 0 - 150 mg/dL Cholesterol 173 0 - 200 mg/dL HDL 40 >=40 mg/dL LDL Cholesterol 81 0 - 100 mg/dL Blood Venous blood specimen / Unknown Historical Provider LAB BLOOD ORDERABLES Silvia l Result from Last 3 Months or Most Recently Relevant to Health Maintenance Insurance [facility] Advance Directives * Full Code [...] currently active code status orders. Care Teams Water Use Inspector Relationship Specialty Start Date End Date Niall Gonsalves PA [address] [place] [phone] PCP - General Physician Weekend Receptionist 07/10/24
--- OUTSIDE RECORDS SUMMARY | 2025-02-06 09:48 | XMS_ITS | Encounter Summary ---
Author Organization [email or web address] Address [address] [facility] [address] [place] [address] Care Team Providers Care Type Proof Reproducer Name Role Phone Unavailable Primary Care Provider Unavailabl e Encounter Details Date Type Department Care Team (Latest Contact Info) Description 06/12/[address] [facility] CONVERSIONS Dental, Provider, DDS Social History Tobacco Use Types Packs/Day Years Used Date Smoking Tobacco: Never Assessed Comments Unknown Sex and Gender Information Value Date Recorded Sex Assigned at Female 01/30/2022 10:34 AM EDT Legal Sex Female 10:34 AM EDT Gender Identity Female 01/30/2022 10:34 AM EDT Sexual Orientation Straight 01/30/2022 10 :34 AM EDT documented as of this encounter Plan of Treatment Upcoming Encounters Date Type Department Care Team (Late st Contact Info) Description 05/06/2025 10:00 AM EST Office Visit [facility] OPTOMETRY [address] [place] [address] Alex, Alexus, OD [address] [place] [address] documented as of this encounter Visit Diagnoses Not on filedocumented in this encounter
== END 2025-02-06 10:03 | disposition home or self-care (01) ==
LOC: HO.HMCH 08:56
PROVIDERS: PCP Physician Assistant; Visit Provider Internal Medicine
DX: G44.201 Tension-type headache, unspecified, intractable (principal)

== ENCOUNTER → 2025-02-06 08:55 | Outpatient (BNVA) | payer OTHER, SELFPAY | PROVIDERS: PCP Physician Assistant; Visit Provider Internal Medicine | DX: G44.201 Tension-type headache, unspecified, intractable (principal) | CPT/HCPCS: 99212 ==